=== PATIENT | male | born 1970 | race Caucasian/White ===

== ENCOUNTER 2017-08-19 08:58 | Inpatient (IN) | payer MEDICARE, OTHER ==
--- NOTE | 2017-08-19 09:10 | PDOC ---
Attending Attestation - Resident Resident Name: SaurabhKoko francis - HPI HPI: 08/19/17 09:34 Pt presents to the ED complaining of hematemesis and brbpr that started yesterday. Patient is also complaining of mild lightheadness and shortness of breath, but denies chest pain or passing out. No prior history of similar complaints. Denies hematemesis and complains only of mild cough. Febrile in the Ed, but denies fevers at home. Patient denies history of HIV, but prior notes reflect diagnosis of HIV with visits to the [facility]. - Physicial Exam PE: 08/19/17 09:37 Agree with resident exam. Patient is tachycardic. He is alert and oriented and is no acute distress. He is speaking in complete sentences without apparent shortness of breath. - Medical Decision Making 08/19/17 10:18 Pt presents to the ED complaining of GI bleed. Febrile and tachycardic in the ED with BRB KS. History of untreated HIV. Differential includes bleeding ulcer or variceal bleed. Patient is also febrile with elevated lactate--will treat with broad spectrum antibiotics. Will admit to telemetry for continued monitoring, antibiotics and serial hemoglobins.
[2017-08-19] MEDS ORDERED: SODIUM CHLORIDE 0.9% 1000 ML INFUS.BAG IV STA (09:23)
[2017-08-19] MEDS ORDERED: PANTOPRAZOLE SODIUM 40 MG VIAL IVPUSH ONE (09:25)
[2017-08-19] MEDS ORDERED: PANTOPRAZOLE SODIUM 40 MG VIAL ONE (09:25)
--- NOTE | 2017-08-19 09:37 | PDOC ---
History of Present Illness - General Chief Complaint: Hemoptysis Stated Complaint: SPITTING UP BLOOD Time Seen by Provider: 08/19/17 09:06 History Source: Patient Exam Limitations: No Limitations - History of Present Illness Initial Comments: 08/19/17 09:57 Patient is a 47M with history of HIV (denies having HIV, not being treated) here today complaining hematemesis and bright red blood per rectum today. He states that he had three episodes of bloody vomit and two bloody stools. Patient is complaining of associated abdominal pain, fevers, shortness of breath and mild dizziness. Of note, patient states that he did not have HIV, history gathered from prior documentation from [facility]. Past History - Past Medical History Allergies/Adverse Reactions: Allergies Allergy/AdvReac Type Severity Reaction Status Date / Time No Known Allergies Allergy Verified 08/19/17 08:59 Home Medications: Ambulatory Orders Emtricitab/Rilpivirine/Tenofov [Complera Tablet] 1 each PO QID 01/31/12 Anemia: No Asthma: No Cancer: No Cardiac Disorders: No CVA: No COPD: No CHF: No Dementia: No Diabetes: No GI Disorders: No Disorders: No HTN: No Hypercholesterolemia: No Liver Disease: No Seizures: No Thyroid Disease: No Other medical history: DENIES. - Surgical History Abdominal Surgery: No Appendectomy: No Cardiac Surgery: No Cholecystectomy: No Lung Surgery: No Neurologic Surgery: No Orthopedic Surgery: No - Suicide/Smoking/Psychosocial Hx Smoking History: Current some day smoker Have you smoked in the past 12 months: Yes Number of Cigarettes Smoked Daily: 4 Cigars Per Day: 0 Information on smoking cessation initiated: Yes 'Breaking Loose' booklet given: 08/19/17 Hx Alcohol Use: No Drug/Substance Use Hx: No Substance Use Type: None Hx Substance Use Treatment: No Review of Systems - Review of Systems Comments:: 08/19/17 10:20 GENERAL/CONSTITUTIONAL: Positive for fever or chills. No weakness. HEAD, EYES, EARS, NOSE AND THROAT: No change in vision. No sore throat. CARDIOVASCULAR: No chest pain. Positive for shortness of breath RESPIRATORY: No cough, wheezing, or hemoptysis. GASTROINTESTINAL: Positive for nausea, vomiting. Negative for constipation. GENITOURINARY: No dysuria, frequency, or change in urination. MUSCULOSKELETAL: No joint or muscle swelling or pain. No neck or back pain. SKIN: No rash NEUROLOGIC: No headache, loss of consciousness, or change in strength/sensation. ALLERGIC/IMMUNOLOGIC: No hives or skin allergy. *Physical Exam - Vital Signs Last Vital Signs Temp Pulse Resp BP Pulse Ox 100.5 F H 143 H 22 102/65 97 08/19/17 09:00 08/19/17 09:00 08/19/17 09:00 08/19/17 09:00 08/19/17 09:00 - Physical Exam Comments: 08/19/17 10:22 GENERAL: Awake, alert, and fully oriented, in no acute distress HEAD: No signs of trauma, normocephalic, atraumatic EYES: PERRLA, EOMI, sclera anicteric, conjunctiva clear ENT: Auricles normal inspection, hearing grossly normal, nares patent, oropharynx clear without exudates. Dry mucosa NECK: Normal ROM, supple, no lymphadenopathy, JVD, or masses LUNGS: No distress, speaks full sentences, clear to auscultation bilaterally HEART: Tachycardic, no murmurs, rubs or gallops, peripheral pulses normal and equal bilaterally. ABDOMEN: 7x3cm reducible ventral hernia, tender. Epigastric tenderness. EXTREMITIES: Normal inspection, Normal range of motion, no edema. No clubbing or cyanosis. NEUROLOGICAL: Cranial nerves II through XII grossly intact. Normal speech, no focal sensorimotor deficits SKIN: Warm, Dry, normal turgor, no rashes or lesions noted. RECTAL: Nontender, hemorrhoid, small amount of red blood. ED Treatment Course - LABORATORY CBC & Chemistry Diagram: 08/19/17 09:20 08/19/17 09:20 - RADIOLOGY Radiology Studies Ordered: Category Date Time Status CHEST X-RAY PORTABLE* [RAD] Stat Radiology 08/19/17 09:23 Ordered Medical Decision Making - Medical Decision Making 08/19/17 10:27 Patient is a 47M with a history of HIV here today with hematemsis. Oral temp 100.4, tachycardic to 140s. Concern elevated due to patent's HIV status not being treated. Differential diagnosis includes, but is not limited to: GI bleed , pneumonia, uti. Will give 2L, tylenol and antibiotics. Will evaluate with septic workup. 08/19/17 11:34 EKG shows sinus tachycardia. Rate 128. No st elevations/depressions. Normal IN/ QRS/QT intevals. Inverted t waves in III. Patient reassessed. Tachycardic to 120s. Complaining of pain in abdomen. Tylenol and second liter going in during examination. 08/19/17 11:36 Laboratory Tests 08/15/14 08/19/17 08/19/17 09:40 09:20 09:20 WBC 7.5 Hgb 13.2 9.2 L D Hct 27.1 L D Plt Count 215 D INR 1.28 H BUN Creatinine Lactic Acid Total Bilirubin Troponin I Urine Nitrite Ur Leukocyte Esterase Stool Occult Blood Salicylates Acetaminophen Alcohol, Quantitative 08/19/17 08/19/17 08/19/17 09:20 09:20 09:20 WBC Hgb Hct Plt Count INR BUN 38 H D Creatinine 0.9 Lactic Acid 3.6 H* Total Bilirubin 1.1 H D Troponin I < 0.02 Urine Nitrite Ur Leukocyte Esterase Stool Occult Blood Salicylates Acetaminophen Alcohol, Quantitative 08/19/17 08/19/17 08/19/17 09:33 09:34 11:00 WBC Hgb Hct Plt Count INR BUN Creatinine Lactic Acid Total Bilirubin Troponin I Urine Nitrite Negative Ur Leukocyte Esterase Negative Stool Occult Blood Positive Salicylates < 1.700 Acetaminophen < 2 Alcohol, Quantitative < 5.0 CBC shows anemia, down from baseline of 13 from 3 years ago. Lactate positive to 3.6. Troponin undetectable. Tox negative. Stool for occult blood positive. CT abdomen/pelvis pending. 08/19/17 12:27 CXR shows no acute pathology. *DC/Admit/Observation/Transfer Diagnosis at time of Disposition: Sepsis - Discharge Dispostion Condition at time of disposition: Stable Admit: Yes - Referrals - Patient Instructions - Post Discharge Activity
[2017-08-19 09:39] LABS: HEMATOCRIT 27.1 % (35.4-49); HEMOGLOBIN 9.2 GM/dL (11.7-16.9)
[2017-08-19 09:56] LABS: BASO % 1.1 % (0-2.0); EOS % 0.2 % (0-4.5); MCH 34.7 pg (25.7-33.7); MONO % 15.4 % (3.8-10.2); NEUT % 72.3 % (42.8-82.8); PLATELET COUNT 215 K/MM3 (134-434); RBC 2.66 M/mm3 (4.00-5.60); RDW 13.8 % (11.9-15.9); WHITE BLOOD COUNT 7.5 K/mm3 (4.0-10.0)
[2017-08-19 10:02] LABS: SALICYLATE < 1.700 mg/dL
[2017-08-19 10:03] LABS: ACETAMINOPHEN < 2 ug/mL
[2017-08-19 10:05] LABS: ALBUMIN 2.4 g/dl (3.4-5.0); ALK PHOS 86 U/L (45-117); ANION GAP 7 (8-16); BILIRUBIN,TOTAL 1.1 mg/dL (0.2-1.0); BLOOD UREA NITROGEN 38 mg/dL (7-18); CALCIUM 7.9 mg/dL (8.5-10.1); CHLORIDE 102 mmol/L (98-107); CO2 27 mmol/L (21-32); CREATININE 0.9 mg/dL (0.7-1.3); GLUCOSE,RANDOM 132 mg/dL (74-106); SGPT/ALT 74 U/L (12-78); SODIUM 136 mmol/L (136-145); TOT PROT 9.7 g/dl (6.4-8.2)
[2017-08-19] MEDS ORDERED: ACETAMINOPHEN 1000 MG/100 ML VIAL (NON FORMULARY) IVPB ONE (10:06)
[2017-08-19 10:07] LABS: INR 1.28 (0.82-1.09); PROTHROMBIN TIME (PATIENT) 14.5 SEC (9.98-11.88)
[2017-08-19 10:09] LABS: ACTIVATED PTT 30.4 SECONDS (26.9-34.4)
[2017-08-19 10:13] LABS: POTASSIUM 4.7 mmol/L (3.5-5.1); SGOT/AST 191 U/L (15-37)
[2017-08-19] MEDS ORDERED: ACETAMINOPHEN INJECTION 100 ML IVPB ONE (10:19)
[2017-08-19] MEDS ORDERED: VANCOMYCIN 1,000 MG in DEXTROSE 5%-WATER - 250 ML IVPB ONE (10:26)
[2017-08-19] MEDS ORDERED: PIPERACILLIN/TAZOB 4.5 GM/100 ML PRE-DOCKED IVPB ONE (10:26)
[2017-08-19 11:31] LABS: URINE APPEARANCE CLEAR; URINE BILIRUBIN NEGATIVE (NEGATIVE); URINE BLOOD 1+ (NEGATIVE); URINE COLOR YELLOW; URINE GLUCOSE (UA) NEGATIVE (NEGATIVE); URINE KETONE TRACE (NEGATIVE); URINE LEUK ESTERASE NEGATIVE (NEGATIVE); URINE NITRITE NEGATIVE (NEGATIVE); URINE PROTEIN NEGATIVE (NEGATIVE); URINE UROBILINOGEN NEGATIVE mg/dL (0.2-1.0)
[2017-08-19 11:42] LABS: GRANULAR CASTS 9 /lpf; URINE HYALINE CAST 12 /lpf
[2017-08-19] MEDS ORDERED: SODIUM CHLORIDE 1,000 ML IV STA (12:28)
[2017-08-19] MEDS ORDERED: VANCOMYCIN 1 GRAM (PRE-DOCKED) 1,000 MG/250 ML BAG IVPB ONE (12:37)
[2017-08-19] MEDS ORDERED: PIPERACILLIN/TAZOB 4.5 GM 4.5 GM/100 ML BAG IVPB ONE (12:37)
--- NOTE | 2017-08-19 14:40 | HP ---
CHIEF COMPLAINT: Bloody vomiting PCP: None HISTORY OF PRESENT ILLNESS: 47 year-old male with a PMH significant for alcohol abuse and HIV not on medication. Presents to the ED today with a report of hematemesis that began yesterday and continued to this morning. He has had "black" stools over the past few days, also BRBPR. Patient also complains of abdominal pain in the periumbilical area and subjective fever. Patient admits to drinking 7 beers daily, 10 beers on weekend days. Last drink 4 days ago. Patient admits he stopped going to the [facility] several years ago and has been off antiviral medication since. His last recorded attendance there was in 04/2015. ER course was notable for: (1) T100.5 BP 124/68 p143 RR22 (2) Lactic acid 3.6-->1.2 (3) Hgb 9.2 Recent Travel: No PAST MEDICAL HISTORY: HIV off medication PAST SURGICAL HISTORY: Hemorrhoidectomy Social History: unemployed, from [place] Smoking: current every day Alcohol: 7 beers daily on weekdays, 10 beers daily on weekends Drugs: denies Family History: mother and father unknown ages and causes; son healthy Allergies No Known Allergies Allergy (Verified 08/19/17 08:59) HOME MEDICATIONS: Home Medications Medication Instructions Recorded Emtricitab/Rilpivirine/Tenofov 1 each PO QID 01/31/12 [Complera Tablet] REVIEW OF SYSTEMS CONSTITUTIONAL: +fever, chills Absent: diaphoresis, generalized weakness, malaise, loss of appetite, weight change HEENT: Absent: rhinorrhea, nasal congestion, throat pain, throat swelling, difficulty swallowing, mouth swelling, ear pain, eye pain, visual changes CARDIOVASCULAR: Absent: chest pain, syncope, palpitations, irregular heart rate, lightheadedness , peripheral edema RESPIRATORY: Absent: cough, shortness of breath, dyspnea with exertion, orthopnea, wheezing, stridor, hemoptysis GASTROINTESTINAL: +abdominal pain, abdominal distension, hematemesis, melena, BRBPR Absent: diarrhea, constipation, hematochezia GENITOURINARY: Absent: dysuria, frequency, urgency, hesitancy, hematuria, flank pain, genital pain MUSCULOSKELETAL: Absent: myalgia, arthralgia, joint swelling, back pain, neck pain SKIN: Absent: rash, itching, pallor HEMATOLOGIC/IMMUNOLOGIC: Absent: easy bleeding, easy bruising, lymphadenopathy, frequent infections ENDOCRINE: Absent: unexplained weight gain, unexplained weight loss, heat intolerance, cold intolerance NEUROLOGIC: Absent: headache, focal weakness or paresthesias, dizziness, unsteady gait, seizure, mental status changes, bladder or bowel incontinence PSYCHIATRIC: Absent: anxiety, depression, suicidal or homicidal ideation, hallucinations. PHYSICAL EXAMINATION Vital Signs - 24 hr 08/19/17 08/19/17 08/19/17 09:00 11:42 12:02 Temperature 100.5 F H 99.4 F Pulse Rate 143 H 89 Pulse Rate [ 121 H Left Apical] Respiratory 22 18 18 Rate Blood Pressure 102/65 134/70 Blood Pressure 124/68 [Left Arm] O2 Sat by Pulse 97 98 98 Oximetry (%) GENERAL: Awake, alert, and fully oriented. Ill-appearing. HEAD: Normal with no signs of trauma. EYES: Pupils equal, round and reactive to light, extraocular movements intact, sclera anicteric, conjunctiva clear. No lid lag. EARS, NOSE, THROAT: Ears normal, nares patent, oropharynx clear without exudates. Moist mucous membranes. NECK: Normal range of motion, supple without lymphadenopathy, JVD, or masses. LUNGS: Breath sounds equal, clear to auscultation bilaterally. No wheezes, and no crackles. No accessory muscle use. +Clubbing all fingers HEART: Regular rate and rhythm, normal S1 and S2 without murmur, rub or gallop. ABDOMEN: Soft, mid-abdominal tenderness, distension, hypoactive bowel sounds MUSCULOSKELETAL: Normal range of motion at all joints. No bony deformities or tenderness. No CVA tenderness. UPPER EXTREMITIES: 2+ pulses, warm, well-perfused. No cyanosis. No clubbing. No peripheral edema. LOWER EXTREMITIES: 2+ pulses, warm, well-perfused. No calf tenderness. No peripheral edema. NEUROLOGICAL: Cranial nerves II-XII intact. Normal speech. Laboratory Results - last 24 hr 08/19/17 08/19/17 08/19/17 09:20 09:20 09:20 WBC 7.5 RBC 2.66 L D Hgb 9.2 L D Hct 27.1 L D MCV 102.0 H MCH 34.7 H MCHC 34.0 RDW 13.8 Plt Count 215 D MPV 10.0 D Neutrophils % 72.3 Lymphocytes % 11.0 D Monocytes % 15.4 H Eosinophils % 0.2 D Basophils % 1.1 PT with INR 14.50 H INR 1.28 H PTT (Actin FS) 30.4 Sodium 136 Potassium 4.7 Chloride 102 Carbon Dioxide 27 Anion Gap 7 L BUN 38 H D Creatinine 0.9 Creat Clearance w eGFR > 60 Random Glucose 132 H D Lactic Acid Calcium 7.9 L Total Bilirubin 1.1 H D AST 191 H D ALT 74 D Alkaline Phosphatase 86 Troponin I Total Protein 9.7 H Albumin 2.4 L D Urine Color Urine Appearance Urine pH Ur Specific [place] Urine Protein Urine Glucose (UA) Urine Ketones Urine Blood Urine Nitrite Urine Bilirubin Urine Urobilinogen Ur Leukocyte Esterase Urine WBC (Auto) Urine RBC (Auto) Hyaline Casts Granular Casts Stool Occult Blood Salicylates Acetaminophen Alcohol, Quantitative Blood Type Antibody Screen 08/19/17 08/19/17 08/19/17 09:20 09:20 09:20 WBC RBC Hgb Hct MCV MCH MCHC RDW Plt Count MPV Neutrophils % Lymphocytes % Monocytes % Eosinophils % Basophils % PT with INR INR PTT (Actin FS) Sodium Potassium Chloride Carbon Dioxide Anion Gap BUN Creatinine Creat Clearance w eGFR Random Glucose Lactic Acid 3.6 H* Calcium Total Bilirubin AST ALT Alkaline Phosphatase Troponin I < 0.02 Total Protein Albumin Urine Color Urine Appearance Urine pH Ur Specific [place] Urine Protein Urine Glucose (UA) Urine Ketones Urine Blood Urine Nitrite Urine Bilirubin Urine Urobilinogen Ur Leukocyte Esterase Urine WBC (Auto) Urine RBC (Auto) Hyaline Casts Granular Casts Stool Occult Blood Salicylates Acetaminophen Alcohol, Quantitative Blood Type O POSITIVE Antibody Screen Negative 08/19/17 08/19/17 08/19/17 09:33 09:34 11:00 WBC RBC Hgb Hct MCV MCH MCHC RDW Plt Count MPV Neutrophils % Lymphocytes % Monocytes % Eosinophils % Basophils % PT with INR INR PTT (Actin FS) Sodium Potassium Chloride Carbon Dioxide Anion Gap BUN Creatinine Creat Clearance w eGFR Random Glucose Lactic Acid Calcium Total Bilirubin AST ALT Alkaline Phosphatase Troponin I Total Protein Albumin Urine Color Yellow Urine Appearance Clear Urine pH 6.0 Ur Specific [place] 1.015 Urine Protein Negative Urine Glucose (UA) Negative Urine Ketones Trace H Urine Blood 1+ H Urine Nitrite Negative Urine Bilirubin Negative Urine Urobilinogen Negative Ur Leukocyte Esterase Negative Urine WBC (Auto) 1 Urine RBC (Auto) 1 Hyaline Casts 12 Granular Casts 9 Stool Occult Blood Positive Salicylates < 1.700 Acetaminophen < 2 Alcohol, Quantitative < 5.0 Blood Type Antibody Screen 08/19/17 12:15 WBC RBC Hgb Hct MCV MCH MCHC RDW Plt Count MPV Neutrophils % Lymphocytes % Monocytes % Eosinophils % Basophils % PT with INR INR PTT (Actin FS) Sodium Potassium Chloride Carbon Dioxide Anion Gap BUN Creatinine Creat Clearance w eGFR Random Glucose Lactic Acid 1.2 Calcium Total Bilirubin AST ALT Alkaline Phosphatase Troponin I Total Protein Albumin Urine Color Urine Appearance Urine pH Ur Specific [place] Urine Protein Urine Glucose (UA) Urine Ketones Urine Blood Urine Nitrite Urine Bilirubin Urine Urobilinogen Ur Leukocyte Esterase Urine WBC (Auto) Urine RBC (Auto) Hyaline Casts Granular Casts Stool Occult Blood Salicylates Acetaminophen Alcohol, Quantitative Blood Type Antibody Screen ASSESSMENT/PLAN 47 year-old male with a PMH significant for alcohol abuse and HIV not on medication. Admitted for upper GI bleed. SIRS r/o upper GI bleed --Tm 100.6, BP stable, tachycardic --type and screen done, 2U PRBC on hold --Protonix drip --Octreotide drip --IV fluids --GI following Fever Abdominal pain Ascites --08/19 CTAP: small amount of ascites throughout abdomen and pelvis --Total bili 1.1, AST 191, INR 1.28 --concern for SBP --start IV Levofloxacin (cefotaxime on backorder) --ID consult Macrocytic anemia --Hgb 9.2, MCV 102 --folate, B12, retic count, haptoglobin, LDH, thyroid; will defer further HIV testing to ID Alcohol abuse --last drink 4 days ago --monitor closely for s/s of withdrawal BRBPR Hemorrhoid(s) --small amount of blood in rectal vault --occult stool positive Transaminitis Ascites --US liver pending HIV --patient denies HIV positive status even though he was followed at [facility] through 2014 --ID consult pending FEN Fluids: D5NS @ 100mL/hr Electrolytes: replete as indicated Nutrition: NPO DVT prophylaxis: mechanical only due to bleeding issue; SCDs, oob, ambulation Physical therapy Dispo: continues to require inpatient care. Full code. Visit type - Emergency Visit Emergency Visit: Yes ED Registration Date: 08/19/17 Care time: The patient presented to the Emergency Department on the above date and was hospitalized for further evaluation of their emergent condition. - New Patient This patient is new to me today: Yes Date on this admission: 08/19/17 - Critical Care Critical Care patient: Yes Total Critical Care Time (in minutes): 45 Critical Care Statement: The care of this patient involved high complexity decision making to prevent further life threatening deterioration of the patient 's condition and/or to evaluate & treat vital organ system(s) failure or risk of failure. Hospitalist Screening - Colonoscopy Questionnaire Colonoscopy Questionnaire: Colonoscopy Questionnaire - Patient: 50 - 75 years old and never had a screening colonoscopy: No History of colon or rectal polyps, or CA: No History of IBD, Crohn's disease or UC: No History of abdominal radiation therapy as a child: No - Relative: 1 with colon or rectal CA, or polyps at age 60 or younger: Unknown Colon or rectal CA diagnosed at age 45 or younger: Unknown Multiple relatives with colon or rectal CA: Unknown - Outcome: Screening Result: Negative Screen
[2017-08-19] MEDS ORDERED: DEXTROSE 5%-LACTATED RINGERS 1,000 ML IV SCH (15:00)
[2017-08-19] MEDS: PANTOPRAZOLE SODIUM 80 MG in SODIUM CHLORIDE 100 ML IVPB SCH (15:51)
[2017-08-19 17:25] VITALS: BMI 24.2
--- NOTE | 2017-08-19 17:33 | EKG ---
Test Reason : Blood Pressure : / mmHG Vent. Rate : 128 BPM Atrial Rate : 128 BPM P-R Int : 142 ms QRS Dur : 094 ms QT Int : 306 ms P-R-T Axes : 056 039 -02 degrees QTc Int : 446 ms SINUS TACHYCARDIA OTHERWISE NORMAL ECG WHEN COMPARED WITH ECG OF 16-SEP-2003 09:36, VENT. RATE HAS INCREASED BY 64 BPM T WAVE AMPLITUDE HAS DECREASED IN ANTERIOR LEADS Confirmed by RENE DAUGHERTY, CARLOS ([id number]) on 08/19/2017 5:33:05 PM Referred By: Confirmed By:CARLOS LÓPEZ MD
[2017-08-19] MEDS ORDERED: CEFOTAXIME SODIUM 500 MG in DEXTROSE 5%-WATER - 50 ML IVPB SCH (18:00)
[2017-08-19] MEDS ORDERED: OCTREOTIDE ACETATE 1,200 MCG in DEXTROSE 5%-WATER - 488 ML IVPB SCH (18:00)
--- NOTE | 2017-08-19 18:04 | CON.GI ---
Consult Consult Specialty:: GI: Dr. Arroyo covering for Dr. Nicholson Referred by:: Hospitalist Reason for Consultation:: Hematemesis / BRBPR / hematochezia - History of Present Illness Chief Complaint: I vomited blood History of Present Illness: 47M admitted through [facility] for evaluation of hematemesis, melena/BRBPR. He states that the vomiting began yesterday, initially black then bright red in color. he described multiple epsodes from yesterday day and the evening and the last times were 5am and 830am today. He denies similar episodes in the past and has never had an upper endoscopy or colonoscopy. He is an alcoholic, consuming 6-7 beers per day, more on the weekends for several years. his last drink was 4 days ago and he denies ever having had a withdrawal. He has a h/o HIV as well but denies this diagnosis. He has had fevers on admission and describes chills and currently complains of mid abdominal pain. CT scan performed in the ER with IV contrast revealed a small amount of ascites and was otherwise unremarkable. - History Source History Provided By: Patient, Medical Record Limitations to Obtaining History: No Limitations (He does deny having HIV) - Past Medical History Infectious Disease: Yes: HIV (On ART) - Past Surgical History Additional Surgical History: Hemorrhoidectomy - Alcohol/Substance Use Hx Alcohol Use: Yes (6-7 BEERs daily, more on weekends) History of Substance Use: reports: None - Smoking History Smoking history: Current some day smoker Have you smoked in the past 12 months: Yes Aproximately how many cigarettes per day: 4 - Social History Usual Living Arrangement: Alone ADL: Independent Occupation: Unemployed Place of : Other ([place]) History of Recent Travel: No Home Medications - Allergies Allergies/Adverse Reactions: Allergies Allergy/AdvReac Type Severity Reaction Status Date / Time No Known Allergies Allergy Verified 08/19/17 08:59 - Home Medications Home Medications: Ambulatory Orders Emtricitab/Rilpivirine/Tenofov [Complera Tablet] 1 each PO QID 01/31/12 Family Disease History - Family Disease History Family Disease History: Other: Father (: unknown causes), Mother (: unknown causes), Son (alive: healthy) Other Family History: No family history of colorectal cancer or other Gi malignancy Review of Systems - Review of Systems Constitutional: reports: Fever, Weakness Cardiovascular: denies: Chest Pain Respiratory: reports: Cough. denies: SOB Gastrointestinal: reports: Abdominal Pain, Melena, Rectal Bleeding, Vomiting Blood. denies: Constipation, Diarrhea, Dysphagia Physical Exam-GI Vital Signs: Vital Signs Temperature 100.0 F H 08/19/17 17:25 Pulse Rate 112 H 08/19/17 17:25 Respiratory Rate 22 08/19/17 17:25 Blood Pressure 124/78 08/19/17 17:25 O2 Sat by Pulse Oximetry (%) 98 08/19/17 16:45 Constitutional: Yes: Calm Eyes: No: Sclera Icterus Cardiovascular: Yes: Tachycardia. No: Murmur Respiratory: Yes: CTA Bilaterally Gastrointestinal Inspection: No: Distention ...Auscultate: Yes: Normoactive Bowel Sounds ...Palpate: Yes: Hepatomegaly, Soft, Tenderness (Mid abdomen) ...Percussion: No: Tympanitic ...Rectal Exam: Yes: Other (No external lesions, no masses, guaiac positive brown stool, no blood/melena) Edema: No (No LE edema) Neurological: Yes: Alert. No: [facility] Labs: CBC, BMP 08/19/17 09:20 08/19/17 09:20 INR, PTT INR 1.28 (0.82-1.09) H 08/19/17 09:20 Imaging - Results Cat Scan: Report Reviewed, Image Reviewed Ultrasound: Report Reviewed (hepatomegaly and diffuse steatosis of liver) Assessment/Plan Hematemesis / hematochezia: Given Mr. Esparza' long standing alcohol abuse coupled with hypoalbuminemia and mild coagulopathy, variceal hemorrhage will need to be excluded along with alternate patholgies such as PUD / hemorrhagic gastritis. i explained this to Mr. Esparza and discussed EGD followed by possible colonoscopy. We discussed potential risks of the procedures like but not limited to bleeding, perforation requiring surgery to repair, infection, sedation medication effects all of which could be potentially life threatening. He has agreed to the procedures For now: NPO Repeat CBC now Protonix drip started by david I advised an octreotide drip as well and transfer to the ICU IV abx in setting of possible variceal bleed: quinolone / cefotaxime ID eval Fever w/u Transfer to ICU
[2017-08-19] MEDS ORDERED: CEFOTAXIME SODIUM IVPB SCH (18:30)
[2017-08-19] MEDS ORDERED: SODIUM CHLORIDE IVPB SCH (18:30)
[2017-08-19] MEDS ORDERED: OCTREOTIDE ACETATE 50 MCG/1 ML - 1 ML VIAL IVPB ONE (19:00)
[2017-08-19 20:25] LABS: HEMATOCRIT 21.7 % (35.4-49); HEMOGLOBIN 7.5 GM/dL (11.7-16.9); MCH 35.1 pg (25.7-33.7); MCHC 34.5 g/dl (32.0-35.9); MEAN CELL VOLUME 101.7 fl (80-96); MEAN PLT VOLUME 9.5 fl (7.5-11.1); PLATELET COUNT 157 K/MM3 (134-434); RBC 2.14 M/mm3 (4.00-5.60); RDW 13.5 % (11.9-15.9); WHITE BLOOD COUNT 6.1 K/mm3 (4.0-10.0)
[2017-08-19] MEDS ORDERED: CHLORHEXIDINE GLUCONATE 4% CLEANSER FOR DECOLONIZATION TP SCH (22:00)
--- NOTE | 2017-08-19 22:33 | CONSULT ---
Consult Consult Specialty:: Pulm/CCM Reason for Consultation:: GI bleed- Hematemesis and melena - History of Present Illness Chief Complaint: Abd pain History of Present Illness: 47yom with PMHx of HIV (pt denies diagnosis, non-compliant to meds, no hx of OIs ), active drinker 5-6beers /d( no hx of withdrawal), smoker who presented to the ED with c/o hematemesis, melena/BRBPR x 2days. He states that the vomiting has been bright red blood and the stool has been black. He also c/o epigastric pain. Pt has denied previous episodes of bleeding. He reports the last was 5am and 830am today. His last drink was 4 days ago. He denied syncope, chest pain. In the ED T 100.5F, HR 143, BP 102/65, O2 sat 97% on room air. Labs notable Hgb 7.5(13 in 2014), retic count 1.94%, albumin 2.4, INR 1.28. Abd US s/f hepatomegaly and ascites. GI consulted. Made NPO. Started on Protonix and octreotide drips with plan for EGD in am. He was transferred to ICU for further management. In the ICU rec'd A+Ox3, anxious, HD stable on Protonix and octreotide drips. No episodes of hematemesis or melena. 2U PRBC being given. - Past Medical History Infectious Disease: Yes: HIV (On ART) - Past Surgical History Additional Surgical History: Hemorrhoidectomy - Alcohol/Substance Use Hx Alcohol Use: Yes (6-7 BEERs daily, more on weekends) History of Substance Use: reports: None - Smoking History Smoking history: Current some day smoker Have you smoked in the past 12 months: Yes Aproximately how many cigarettes per day: 4 - Social History Usual Living Arrangement: Alone ADL: Independent Occupation: Unemployed History of Recent Travel: No Home Medications - Allergies Allergies/Adverse Reactions: Allergies Allergy/AdvReac Type Severity Reaction Status Date / Time No Known Allergies Allergy Verified 08/19/17 08:59 - Home Medications Home Medications: Ambulatory Orders Emtricitab/Rilpivirine/Tenofov [Complera Tablet] 1 each PO QID 01/31/12 Family Disease History - Family Disease History Family History: Unremarkable Family Disease History: Other: Father (: unknown causes), Mother (: unknown causes), Son (alive: healthy) Other Family History: No family history of colorectal cancer or other Gi malignancy Review of Systems - Review of Systems Constitutional: reports: Fever Eyes: reports: No Symptoms HENT: reports: No Symptoms Neck: reports: No Symptoms Cardiovascular: reports: No Symptoms Respiratory: reports: No Symptoms Gastrointestinal: reports: Abdominal Pain Genitourinary: reports: No Symptoms Musculoskeletal: reports: No Symptoms Integumentary: reports: No Symptoms Neurological: reports: Dizziness Psychiatric: reports: Anxiety Physical Exam Vital Signs: Vital Signs Temperature 100.0 F H 08/19/17 17:25 Pulse Rate 112 H 08/19/17 17:25 Respiratory Rate 22 08/19/17 17:25 Blood Pressure 124/78 08/19/17 17:25 O2 Sat by Pulse Oximetry (%) 98 08/19/17 16:45 Intake & Output 08/16/17 08/17/17 08/18/17 08/19/17 23:59 23:59 23:59 23:59 Intake Total 1350 Output Total 850 Balance 500 Weight 68.039 kg Constitutional: Yes: Well Nourished, No Distress Eyes: Yes: Conjunctiva Clear, PERRL HENT: Yes: Atraumatic, Normocephalic Neck: Yes: Trachea Midline Cardiovascular: Yes: Regular Rate and Rhythm, Tachycardia, S1, S2 Respiratory: Yes: Regular, CTA Bilaterally Gastrointestinal: Yes: Normal Bowel Sounds, Hepatomegaly (Non tender to palpaption; RUQ dull and firm) ...Rectal Exam: Yes: WNL Renal/: Yes: WNL Extremities: Yes: WNL Edema: No Neurological: Yes: Alert, Oriented, Cran Nerves II-XII Intact Psychiatric: Yes: Alert, Oriented Labs: CBC, BMP 08/19/17 19:00 08/19/17 09:20 CBC,CMP WBC 6.1 K/mm3 (4.0-10.0) 08/19/17 19:00 RBC 2.14 M/mm3 (4.00-5.60) L 08/19/17 19:00 Hgb 7.5 GM/dL (11.7-16.9) L D 08/19/17 19:00 Hct 21.7 % (35.4-49) L D 08/19/17 19:00 MCV 101.7 fl (80-96) H 08/19/17 19:00 MCH 35.1 pg (25.7-33.7) H 08/19/17 19:00 MCHC 34.5 g/dl (32.0-35.9) 08/19/17 19:00 RDW 13.5 % (11.9-15.9) 08/19/17 19:00 Plt Count 157 K/MM3 (134-434) D 08/19/17 19:00 MPV 9.5 fl (7.5-11.1) 08/19/17 19:00 Neutrophils % 72.3 % (42.8-82.8) 08/19/17 09:20 Lymphocytes % 11.0 % (8-40) D 08/19/17 09:20 Monocytes % 15.4 % (3.8-10.2) H 08/19/17 09:20 Eosinophils % 0.2 % (0-4.5) D 08/19/17 09:20 Basophils % 1.1 % (0-2.0) 08/19/17 09:20 Retic Count 1.94 % (0.5-1.5) H 08/19/17 15:47 Sodium 136 mmol/L (136-145) 08/19/17 09:20 Potassium 4.7 mmol/L (3.5-5.1) 08/19/17 09:20 Chloride 102 mmol/L (98-107) 08/19/17 09:20 Carbon Dioxide 27 mmol/L (21-32) 08/19/17 09:20 Anion Gap 7 (8-16) L 08/19/17 09:20 BUN 38 mg/dL (7-18) H D 08/19/17 09:20 Creatinine 0.9 mg/dL (0.7-1.3) 08/19/17 09:20 Creat Clearance w eGFR > 60 (>60) 08/19/17 09:20 Random Glucose 132 mg/dL (74-106) H D 08/19/17 09:20 Lactic Acid 1.2 mmol/L (0.0-2.0) 08/19/17 12:15 Calcium 7.9 mg/dL (8.5-10.1) L 08/19/17 09:20 Total Bilirubin 1.1 mg/dL (0.2-1.0) H D 08/19/17 09:20 AST 191 U/L (15-37) H D 08/19/17 09:20 ALT 74 U/L (12-78) D 08/19/17 09:20 Alkaline Phosphatase 86 U/L (45-117) 08/19/17 09:20 LD Total 165 U/L (87-241) 08/19/17 16:00 Troponin I < 0.02 ng/ml (0.00-0.05) 08/19/17 09:20 Total Protein 9.7 g/dl (6.4-8.2) H 08/19/17 09:20 Albumin 2.4 g/dl (3.4-5.0) L D 08/19/17 09:20 Vitamin B12 427 pg/ml (180-914) 08/19/17 16:00 Serum Folate 11 ng/ml (3.1-17.5) 08/19/17 15:47 TSH 3.17 uIU/ml (0.358-3.74) 08/19/17 16:00 Free T4 0.93 ng/dl (0.76-1.16) 08/19/17 16:00 Current Medications Chlorhexidine Gluconate (Hibiclens For Decolonization -) 1 applic TP HS [facility] Pantoprazole Sodium 80 mg/ (Sodium Chloride) 100 mls @ 10 mls/hr IVPB Q10H [facility] PRN Reason: 8 MG/HR Last Admin: 08/19/17 15:51 Dose: 10 mls/hr Dextrose/Lactated Ringer's (D5-Lr -) 1,000 mls @ 100 mls/hr IV ASDIR [facility] Last Admin: 08/19/17 15:07 Dose: 100 mls/hr Octreotide Acetate 1,200 mcg/ (Dextrose) 500 mls @ 20.83 mls/hr IVPB [facility]IR [facility] PRN Reason: 50 MCG/HR Levofloxacin (Levaquin 500 Mg Premixed Ivpb -) 500 mg in 100 mls @ 100 mls/hr IVPB DAILY [facility] PRN Reason: Protocol Last Admin: 08/19/17 18:57 Dose: 100 mls/hr Mupirocin (Bactroban Ointment (For Decolonization) -) 1 applic NS BID [facility] Stop: 08/24/17 21:59 Imaging - Results Chest X-ray: Report Reviewed Cat Scan: Report Reviewed Ultrasound: Report Reviewed Problem List - Problems (1) GIB (gastrointestinal bleeding) Code(s): K92.2 - GASTROINTESTINAL HEMORRHAGE, UNSPECIFIED (2) Anemia Code(s): D64.9 - ANEMIA, UNSPECIFIED (3) HIV (human immunodeficiency virus infection) Code(s): Z21 - ASYMPTOMATIC HUMAN IMMUNODEFICIENCY VIRUS INFECTION STATUS Assessment/Plan 47yom with PMHx of HIV (pt denies diagnosis, non compliant to meds), active drinker 5-6beers/d(no hx of withdrawal) admitted with hematemesis and melena. Imaging s/f hepatomegaly and ascites. In ICU with GIB and significant anemia c/ f variceal bleeding +/- PUD +/- bleeding gastritis with plan for EGD in am. Plan: -GI consult, apprec recs -NPO -Maintain large bore IV access -CBC q4-6 -PRBC transfusion for hgb<7 -Cont PPI drip -Cont octreotide drip -Cont Levaquin for SBP prophylaxis -IVF -Monitor BMP and UOP -Trend LFTs and coags -ID consult for HIV management -JYOTSNA Ackerman CC time 35mins
[2017-08-19] MEDS: MUPIROCIN 2% TOPICAL OINTMENT FOR DECOLONIZATION NS SCH (22:50)
[2017-08-20] MEDS: PANTOPRAZOLE SODIUM 80 MG in SODIUM CHLORIDE 100 ML IVPB SCH ×3 (01:00→11:42)
[2017-08-20] MEDS ORDERED: OCTREOTIDE ACETATE 1,200 MCG in DEXTROSE 5%-WATER - 488 ML IVPB SCH (05:51)
[2017-08-20 06:16] LABS: BASO % 0.9 % (0-2.0); EOS % 3.3 % (0-4.5); HEMATOCRIT 26.6 % (35.4-49); HEMOGLOBIN 9.4 GM/dL (11.7-16.9); LYMPH % 24.1 % (8-40); MCHC 35.5 g/dl (32.0-35.9); MEAN CELL VOLUME 98.7 fl (80-96); MEAN PLT VOLUME 9.6 fl (7.5-11.1); MONO % 10.5 % (3.8-10.2); NEUT % 61.2 % (42.8-82.8); PLATELET COUNT 176 K/MM3 (134-434); RDW 15.1 % (11.9-15.9); WHITE BLOOD COUNT 6.2 K/mm3 (4.0-10.0)
[2017-08-20 06:39] LABS: ANION GAP 11 (8-16); BLOOD UREA NITROGEN 13 mg/dL (7-18); CALCIUM 7.8 mg/dL (8.5-10.1); CHLORIDE 105 mmol/L (98-107); CO2 24 mmol/L (21-32); CREATININE 0.7 mg/dL (0.7-1.3); GLUCOSE,RANDOM 93 mg/dL (74-106); MAGNESIUM 1.9 mg/dL (1.8-2.4); PHOSPHOROUS 3.5 mg/dL (2.5-4.9); POTASSIUM 3.5 mmol/L (3.5-5.1); SODIUM 140 mmol/L (136-145)
[2017-08-20 06:43] LABS: INR 1.26 (0.82-1.09); PROTHROMBIN TIME (PATIENT) 14.2 SEC (9.98-11.88)
[2017-08-20 06:54] LABS: ALBUMIN 2.3 g/dl (3.4-5.0); BILIRUBIN,DIRECT 0.6 mg/dL (0.0-0.2); BILIRUBIN,TOTAL 1.5 mg/dL (0.2-1.0); TOT PROT 8.8 g/dl (6.4-8.2)
[2017-08-20] MEDS: DEXTROSE 5%-NORMAL SALINE 1,000 ML IV SCH ×2 (07:00→16:36)
[2017-08-20] MEDS ORDERED: MAGNESIUM SULF 50% (8.12 MEQ/2 ML-1 GM VIAL) IVPB ONE (07:46)
[2017-08-20] MEDS ORDERED: CALCIUM ACETATE 667 MG CAPSULE (FP) PO SCH (08:00)
[2017-08-20] MEDS ORDERED: MAGNESIUM 1GM/D5W - 1 GM/100 ML IVPB IVPB ONE (09:00)
--- NOTE | 2017-08-20 09:01 | PN ---
Progress Note, Physician Chief Complaint: ID Former [facility] patient on Complera but off his meds for years. Admitted with UGI bleeding Noted to have low grade temp and concern of SBP treated with Levofloxacin Last T cells over 800 and HIV PCR RNA less then 20 Mild abd pain Seen by Aline quintanilla - Current Medication List Current Medications: Active Medications Chlorhexidine Gluconate (Hibiclens For Decolonization -) 1 applic TP HS [facility] Last Admin: 08/20/17 00:30 Dose: 1 applic Dextrose/Sodium Chloride (D5-Ns -) 1,000 mls @ 100 mls/hr IV ASDIR [facility] Last Admin: 08/20/17 07:00 Dose: Not Given Pantoprazole Sodium 80 mg/ (Sodium Chloride) 100 mls @ 10 mls/hr IVPB Q10H [facility] PRN Reason: 8 MG/HR Octreotide Acetate 1,200 mcg/ (Dextrose) 500 mls @ 20.83 mls/hr IVPB Q24H [facility] PRN Reason: 50 MCG/HR Last Admin: 08/20/17 06:24 Dose: Not Given CEFTRIAXONE 1 G/50 ML PREMIX (Ceftriaxone 1 Gm-D5w Bag) 50 mls @ 100 mls/hr IVPB DAILY [facility] Magnesium Sulfate/Dextrose (Magnesium 1gm/D5w -) 1 gm in 100 mls @ 100 mls/hr IVPB ONCE ONE Stop: 08/20/17 09:59 Potassium Chloride 10 meq/ (Sodium Chloride) 105 mls @ 105 mls/hr IVPB Q60M [facility] Stop: 08/20/17 10:29 Mupirocin (Bactroban Ointment (For Decolonization) -) 1 applic NS BID [facility] Stop: 08/24/17 21:59 Last Admin: 08/19/17 22:50 Dose: 1 applic - Objective Vital Signs: Vital Signs Temperature 98.3 F 08/20/17 08:00 Pulse Rate 79 08/20/17 08:00 Respiratory Rate 18 08/20/17 08:00 Blood Pressure 142/84 08/20/17 08:00 O2 Sat by Pulse Oximetry (%) 100 08/20/17 08:14 Constitutional: Yes: No Distress HENT: No: Pharyngeal Erythema, Thrush Cardiovascular: Yes: S1, S2 Respiratory: Yes: WNL, Regular, CTA Bilaterally Gastrointestinal: Yes: Soft. No: Ascites, Tenderness Edema: No Labs: CBC, BMP 08/20/17 05:00 08/20/17 05:00 INR, PTT INR 1.26 (0.82-1.09) H 08/20/17 05:00 Problem List - Problems (1) GIB (gastrointestinal bleeding) Code(s): K92.2 - GASTROINTESTINAL HEMORRHAGE, UNSPECIFIED (2) HIV (human immunodeficiency virus infection) Code(s): Z21 - ASYMPTOMATIC HUMAN IMMUNODEFICIENCY VIRUS INFECTION STATUS Assessment/Plan Microbiology 08/19/17 13:13 Nasopharyngeal Swab Influenza Types A,B Antigen ([facility]CRETIA) - Final 08/19/17 13:13 Nasopharyngeal Swab - Final Laboratory Tests 12/29/11 01/12/12 08/15/14 13:40 12:10 09:40 WBC Hgb Plt Count BUN Creatinine Direct Bilirubin Alkaline Phosphatase C-Reactive Protein Albumin Urine Nitrite Urine WBC (Auto) Urine RBC (Auto) Absolute CD4 [place] 862 Hep Bs Antigen Negative Hep B Core Ab Interpret Negative Hepatitis C Ab (EIA) 0.2 HIV-1 RNA (PCR) 08/15/14 08/19/17 08/20/17 09:40 11:00 05:00 WBC Hgb Plt Count BUN Creatinine Direct Bilirubin 0.6 H D Alkaline Phosphatase 69 C-Reactive Protein Albumin 2.3 L Urine Nitrite Negative Urine WBC (Auto) 1 Urine RBC (Auto) 1 Absolute CD4 [place] Hep Bs Antigen Hep B Core Ab Interpret Hepatitis C Ab (EIA) HIV-1 RNA (PCR) <20 08/20/17 08/20/17 08/20/17 05:00 05:00 05:00 WBC 6.2 Hgb 9.4 L D Plt Count 176 BUN 13 D Creatinine 0.7 D Direct Bilirubin Alkaline Phosphatase C-Reactive Protein Pending Albumin Urine Nitrite Urine WBC (Auto) Urine RBC (Auto) Absolute CD4 [place] Hep Bs Antigen Hep B Core Ab Interpret Hepatitis C Ab (EIA) HIV-1 RNA (PCR) Assessment Low grade fever doubt SBP HIV untreated UGI bleeding Alcohol abuse Plan Would stop antibiotics Repeat the T cells and Viral load with hope that he will come back to clinic NO HIV meds for now Observe off antibiotics and ART for now GI evaluation EGD colonoscopy Bar[facility] DAUGHERTY
[2017-08-20] MEDS: MUPIROCIN 2% TOPICAL OINTMENT FOR DECOLONIZATION NS SCH (09:22)
--- NOTE | 2017-08-20 09:22 | PN ---
Physical Exam: SUBJECTIVE: Patient seen and examined. He denies further hematemesis, melena. Denies chest pain, fever, sob. States his last drink was 4 days ago. OBJECTIVE: Vital Signs Period Temp Pulse Resp BP Sys/Cole Pulse Ox Last 24 Hr 98.3 F-100.0 F 79-121 17-25 117-142/65-96 97-100 PE Neuro: alert, awake, cn 2-12intact Pulm: CTAB CV: s1 s2 rrr no mrg Abd: periumbical tenderness to palpation, LUQ mild tenderness abd soft, mild distention Ext: no le edema, warm CBCD WBC 6.2 K/mm3 (4.0-10.0) 08/20/17 05:00 RBC 2.70 M/mm3 (4.00-5.60) L D 08/20/17 05:00 Hgb 9.4 GM/dL (11.7-16.9) L D 08/20/17 05:00 Hct 26.6 % (35.4-49) L D 08/20/17 05:00 MCV 98.7 fl (80-96) H 08/20/17 05:00 MCHC 35.5 g/dl (32.0-35.9) 08/20/17 05:00 RDW 15.1 % (11.9-15.9) D 08/20/17 05:00 Plt Count 176 K/MM3 (134-434) 08/20/17 05:00 MPV 9.6 fl (7.5-11.1) 08/20/17 05:00 CMP Sodium 140 mmol/L (136-145) 08/20/17 05:00 Potassium 3.5 mmol/L (3.5-5.1) D 08/20/17 05:00 Chloride 105 mmol/L (98-107) 08/20/17 05:00 Carbon Dioxide 24 mmol/L (21-32) 08/20/17 05:00 Anion Gap 11 (8-16) 08/20/17 05:00 BUN 13 mg/dL (7-18) D 08/20/17 05:00 Creatinine 0.7 mg/dL (0.7-1.3) D 08/20/17 05:00 Creat Clearance w eGFR > 60 (>60) 08/19/17 09:20 Calcium 7.8 mg/dL (8.5-10.1) L 08/20/17 05:00 Total Bilirubin 1.5 mg/dL (0.2-1.0) H D 08/20/17 05:00 AST 142 U/L (15-37) H D 08/20/17 05:00 ALT 53 U/L (12-78) D 08/20/17 05:00 Alkaline Phosphatase 69 U/L (45-117) 08/20/17 05:00 Total Protein 8.8 g/dl (6.4-8.2) H 08/20/17 05:00 Albumin 2.3 g/dl (3.4-5.0) L 08/20/17 05:00 08/19/17 08/19/17 08/19/17 12:15 15:47 15:47 ESR Retic Count 1.94 H Haptoglobin Lactic Acid 1.2 Total Bilirubin LD Total C-Reactive Protein Vitamin B12 Serum Folate 11 TSH Free T4 Free T3 08/19/17 08/19/17 08/19/17 16:00 16:00 16:00 ESR Retic Count Haptoglobin Pending Lactic Acid Total Bilirubin LD Total 165 C-Reactive Protein Vitamin B12 427 Serum Folate TSH 3.17 Free T4 0.93 Free T3 08/19/17 08/20/17 08/20/17 16:00 05:00 05:00 ESR Retic Count Haptoglobin Lactic Acid Total Bilirubin 1.5 H D LD Total C-Reactive Protein Pending Vitamin B12 Serum Folate TSH Free T4 Free T3 Pending 08/20/17 05:00 PT with INR 14.20 H INR 1.26 H Active Medications Generic Name Dose Route Start Last Admin Trade Name Freq PRN Reason Stop Dose Admin Chlorhexidine Gluconate 1 applic 08/19/17 22:00 08/20/17 00:30 Hibiclens For Decolonization - TP 1 applic HS [facility] Administration Dextrose/Sodium Chloride 1,000 mls @ 100 mls/hr 08/20/17 05:45 08/20/17 07:00 D5-Ns - IV Not Given ASDIR [facility] Pantoprazole Sodium 80 mg/ 100 mls @ 10 mls/hr 08/20/17 11:00 Sodium Chloride IVPB Q10H [facility] 8 MG/HR Octreotide Acetate 1,200 mcg/ 500 mls @ 20.83 mls/hr 08/20/17 05:51 08/20/17 06:24 Dextrose IVPB Not Given Q24H [facility] 50 MCG/HR CEFTRIAXONE 1 G/50 ML PREMIX 50 mls @ 100 mls/hr 08/20/17 10:00 Ceftriaxone 1 Gm-D5w Bag IVPB DAILY [facility] Magnesium Sulfate/Dextrose 1 gm in 100 mls @ 100 mls/hr 08/20/17 09:00 Magnesium 1gm/D5w - IVPB 08/20/17 09:59 ONCE ONE Potassium Chloride 10 meq/ 105 mls @ 105 mls/hr 08/20/17 09:30 Sodium Chloride IVPB 08/20/17 10:29 Q60M [facility] Mupirocin 1 applic 08/19/17 22:00 08/19/17 22:50 Bactroban Ointment (For Decolonization) - NS 08/24/17 21:59 1 applic BID [facility] Administration Imaging: - 08/19 CTAP: small amount of ascites throughout abdomen and pelvis Assessment: 47 year old male with PMHx of HIV (off HAART, last seen in [facility] 2014), active drinker, last drink 4 days ago admitted with 2 days hematemesis and melena. Plan: 1. Acute GI bleed upper and lower - For EDG today ~1400 - Maintain protonix gtt - Continue octreotide drip - D5 n2 @100cc/hr - NPO - Hold on abx at this time per ID, will stop ceftriaxone - Received 2uprbcs 08/20 with appropriate rise 2. HIV - Defer further work up until discharged and pt follows in [facility] - Was previous treated and viral load was undetectable 3. Macrocytic anemia - Likely due to chronic alcohol abuse - Folate and b12 wnl 4. Transaminitis/Ascites - Ascites seen on US - Levels down trending 5. Alcohol abuse - Last drink 4 days ago - No signs of withdrawal at this time 6. DVT prophylaxis - SCDs, hold chemical AC Visit type - Emergency Visit Emergency Visit: Yes ED Registration Date: 08/19/17 Care time: The patient presented to the Emergency Department on the above date and was hospitalized for further evaluation of their emergent condition. - New Patient This patient is new to me today: Yes Date on this admission: 08/20/17 - Critical Care Critical Care patient: No
[2017-08-20] MEDS ORDERED: POTASSIUM CHLORIDE 10 MEQ in SODIUM CHLORIDE 100 ML IVPB SCH (09:30)
[2017-08-20] MEDS ORDERED: CEFTRIAXONE 1 G/50 ML PREMIX 50 ML IVPB SCH (10:00)
[2017-08-20 10:23] LABS: ERYTHROCYTE SEDIMENTATION RATE 103 mm/hr (0-10)
[2017-08-20] MEDS ORDERED: DOCUSATE SODIUM 100 MG CAPSULE (FP) PO ONE (11:45)
[2017-08-20] MEDS ORDERED: SENNOSIDES 8.6MG TABLET (FP) PO ONE (11:46)
--- NOTE | 2017-08-20 11:59 | PN ---
Teaching Attending Note Name of Resident: Hebert Farah ATTENDING PHYSICIAN STATEMENT I saw and evaluated the patient. I reviewed the resident's note and discussed the case with the resident. I agree with the resident's findings and plan as documented. SUBJECTIVE: Patient seen and examined in the ICU. Required 2 units pRBCs overnight. Remains on IV Octreotide and PPI. For possible endoscopic evaluation today. Intake & Output 08/17/17 08/18/17 08/19/17 08/20/17 23:59 23:59 23:59 23:59 Intake Total 1350 1700 Output Total 950 1150 Balance 400 550 Weight 150 lb Last Vital Signs Temp Pulse Resp BP Pulse Ox 99.5 F 83 18 144/80 100 08/20/17 10:00 08/20/17 10:00 08/20/17 10:00 08/20/17 10:00 08/20/17 09:00 Active Medications Chlorhexidine Gluconate (Hibiclens For Decolonization -) 1 applic TP HS [facility] Last Admin: 08/20/17 00:30 Dose: 1 applic Docusate Sodium (Colace -) 100 mg PO ONCE ONE Stop: 08/20/17 11:46 Dextrose/Sodium Chloride (D5-Ns -) 1,000 mls @ 100 mls/hr IV [facility]IR [facility] Last Admin: 08/20/17 07:00 Dose: Not Given Pantoprazole Sodium 80 mg/ (Sodium Chloride) 100 mls @ 10 mls/hr IVPB Q10H [facility] PRN Reason: 8 MG/HR Last Admin: 08/20/17 11:42 Dose: Not Given Octreotide Acetate 1,200 mcg/ (Dextrose) 500 mls @ 20.83 mls/hr IVPB Q24H [facility] PRN Reason: 50 MCG/HR Last Admin: 08/20/17 06:24 Dose: Not Given CEFTRIAXONE 1 G/50 ML PREMIX (Ceftriaxone 1 Gm-D5w Bag) 50 mls @ 100 mls/hr IVPB DAILY [facility] Last Admin: 08/20/17 09:21 Dose: 100 mls/hr Mupirocin (Bactroban Ointment (For Decolonization) -) 1 applic NS BID [facility] Stop: 08/24/17 21:59 Last Admin: 08/20/17 09:22 Dose: 1 applic Senna (Senna -) 1 tab PO ONCE ONE Stop: 08/20/17 11:47 Constitutional: Yes: Well Nourished, No Distress Eyes: Yes: Conjunctiva Clear, PERRL HENT: Yes: Atraumatic, Normocephalic Neck: Yes: Trachea Midline Cardiovascular: Yes: Regular Rate and Rhythm, Tachycardia, S1, S2 Respiratory: Yes: Regular, CTA Bilaterally Gastrointestinal: Yes: Normal Bowel Sounds, Hepatomegaly, (+) Mild tenderness ...Rectal Exam: Yes: WNL Renal/: Yes: WNL Extremities: Yes: WNL Edema: No Neurological: Yes: Non-focal Alert, Oriented Psychiatric: Yes: Alert, Oriented Labs: Laboratory Results - last 24 hr 08/19/17 08/19/17 08/19/17 09:20 12:15 15:02 WBC RBC Hgb Hct MCV MCH MCHC RDW Plt Count MPV Neutrophils % Lymphocytes % Monocytes % Eosinophils % Basophils % ESR Retic Count PT with INR INR Sodium Potassium Chloride Carbon Dioxide Anion Gap BUN Creatinine Random Glucose Lactic Acid 1.2 Calcium Phosphorus Magnesium Total Bilirubin Direct Bilirubin AST ALT Alkaline Phosphatase LD Total C-Reactive Protein Total Protein Albumin Vitamin B12 Serum Folate TSH Free T4 Blood Type O POSITIVE O POSITIVE Antibody Screen Negative Crossmatch See Detail 08/19/17 08/19/17 08/19/17 15:47 15:47 16:00 WBC RBC Hgb Hct MCV MCH MCHC RDW Plt Count MPV Neutrophils % Lymphocytes % Monocytes % Eosinophils % Basophils % ESR Retic Count 1.94 H PT with INR INR Sodium Potassium Chloride Carbon Dioxide Anion Gap BUN Creatinine Random Glucose Lactic Acid Calcium Phosphorus Magnesium Total Bilirubin Direct Bilirubin AST ALT Alkaline Phosphatase LD Total 165 C-Reactive Protein Total Protein Albumin Vitamin B12 427 Serum Folate 11 TSH 3.17 Free T4 Blood Type Antibody Screen Crossmatch 08/19/17 08/19/17 08/20/17 16:00 19:00 05:00 WBC 6.1 RBC 2.14 L Hgb 7.5 L D Hct 21.7 L D MCV 101.7 H MCH 35.1 H MCHC 34.5 RDW 13.5 Plt Count 157 D MPV 9.5 Neutrophils % Lymphocytes % Monocytes % Eosinophils % Basophils % ESR Retic Count PT with INR INR Sodium Potassium Chloride Carbon Dioxide Anion Gap BUN Creatinine Random Glucose Lactic Acid Calcium Phosphorus Magnesium Total Bilirubin 1.5 H D Direct Bilirubin 0.6 H D AST 142 H D ALT 53 D Alkaline Phosphatase 69 LD Total C-Reactive Protein Total Protein 8.8 H Albumin 2.3 L Vitamin B12 Serum Folate TSH Free T4 0.93 Blood Type Antibody Screen Crossmatch 08/20/17 08/20/17 08/20/17 05:00 05:00 05:00 WBC 6.2 RBC 2.70 L D Hgb 9.4 L D Hct 26.6 L D MCV 98.7 H MCH 35.0 H MCHC 35.5 RDW 15.1 D Plt Count 176 MPV 9.6 Neutrophils % 61.2 Lymphocytes % 24.1 D Monocytes % 10.5 H Eosinophils % 3.3 D Basophils % 0.9 ESR 103 H Retic Count PT with INR INR Sodium 140 Potassium 3.5 D Chloride 105 Carbon Dioxide 24 Anion Gap 11 BUN 13 D Creatinine 0.7 D Random Glucose 93 D Lactic Acid Calcium 7.8 L Phosphorus 3.5 Magnesium 1.9 Total Bilirubin Direct Bilirubin AST ALT Alkaline Phosphatase LD Total C-Reactive Protein 1.4 H Total Protein Albumin Vitamin B12 Serum Folate TSH Free T4 Blood Type Antibody Screen Crossmatch 08/20/17 05:00 WBC RBC Hgb Hct MCV MCH MCHC RDW Plt Count MPV Neutrophils % Lymphocytes % Monocytes % Eosinophils % Basophils % ESR Retic Count PT with INR 14.20 H INR 1.26 H Sodium Potassium Chloride Carbon Dioxide Anion Gap BUN Creatinine Random Glucose Lactic Acid Calcium Phosphorus Magnesium Total Bilirubin Direct Bilirubin AST ALT Alkaline Phosphatase LD Total C-Reactive Protein Total Protein Albumin Vitamin B12 Serum Folate TSH Free T4 Blood Type Antibody Screen Crossmatch Problem List - Problems (1) GIB (gastrointestinal bleeding) Code(s): K92.2 - GASTROINTESTINAL HEMORRHAGE, UNSPECIFIED (2) Anemia Code(s): D64.9 - ANEMIA, UNSPECIFIED (3) HIV (human immunodeficiency virus infection) Code(s): Z21 - ASYMPTOMATIC HUMAN IMMUNODEFICIENCY VIRUS INFECTION STATUS Assessment/Plan 47M, HIV, active drinker 5-6 beers/day admitted with hematemesis and melena. (+ ) Ascites. Acute GIB and significant anemia suspected variceal bleeding +/- PUD Plan: For possible endoscopy NPO Octreotide IV PPI Serial CBC PPI Drip ABX per ID Dr Beauchamp Critical care time spent in reviewing chart, evaluating patient and formulating plan - 36 minutes.
--- NOTE | 2017-08-20 12:25 | PN ---
Physical Exam: SUBJECTIVE: Mr. Esparza reports minimal bilateral lower abdominal pain today. Has not had any shaking or alteration of consciousness overnight. No more vomiting or BRBPR. OBJECTIVE: No acute events overnight. Vital Signs Period Temp Pulse Resp BP Sys/Cole Pulse Ox Last 24 Hr 98.1 F-100.0 F 73-112 17-25 117-144/65-96 97-100 GENERAL: The patient is awake, alert, and fully oriented, in no acute distress. HEAD: Normal with no signs of trauma. EYES: PERRL, extraocular movements intact, sclera anicteric, conjunctiva clear. No ptosis. ENT: Ears normal, nares patent, oropharynx clear without exudates, moist mucous membranes. NECK: Trachea midline, full range of motion, supple. LUNGS: Breath sounds equal, clear to auscultation bilaterally, no wheezes, no crackles, no accessory muscle use. HEART: Regular rate and rhythm, S1, S2 without murmur, rub or gallop. ABDOMEN: Soft, nontender, nondistended, normoactive bowel sounds, no guarding, no rebound, no hepatosplenomegaly, no masses. EXTREMITIES: 2+ pulses, warm, well-perfused, no edema. NEUROLOGICAL: Cranial nerves II through XII grossly intact. Normal speech, gait not observed. PSYCH: Normal mood, normal affect. SKIN: Warm, dry, normal turgor, no rashes or lesions noted Laboratory Results - last 24 hr 08/19/17 08/19/17 08/19/17 09:20 12:15 15:02 WBC RBC Hgb Hct MCV MCH MCHC RDW Plt Count MPV Neutrophils % Lymphocytes % Monocytes % Eosinophils % Basophils % ESR Retic Count PT with INR INR Sodium Potassium Chloride Carbon Dioxide Anion Gap BUN Creatinine Random Glucose Lactic Acid 1.2 Calcium Phosphorus Magnesium Total Bilirubin Direct Bilirubin AST ALT Alkaline Phosphatase LD Total C-Reactive Protein Total Protein Albumin Vitamin B12 Serum Folate TSH Free T4 Blood Type O POSITIVE O POSITIVE Antibody Screen Negative Crossmatch See Detail 08/19/17 08/19/17 08/19/17 15:47 15:47 16:00 WBC RBC Hgb Hct MCV MCH MCHC RDW Plt Count MPV Neutrophils % Lymphocytes % Monocytes % Eosinophils % Basophils % ESR Retic Count 1.94 H PT with INR INR Sodium Potassium Chloride Carbon Dioxide Anion Gap BUN Creatinine Random Glucose Lactic Acid Calcium Phosphorus Magnesium Total Bilirubin Direct Bilirubin AST ALT Alkaline Phosphatase LD Total 165 C-Reactive Protein Total Protein Albumin Vitamin B12 427 Serum Folate 11 TSH 3.17 Free T4 Blood Type Antibody Screen Crossmatch 08/19/17 08/19/17 08/20/17 16:00 19:00 05:00 WBC 6.1 RBC 2.14 L Hgb 7.5 L D Hct 21.7 L D MCV 101.7 H MCH 35.1 H MCHC 34.5 RDW 13.5 Plt Count 157 D MPV 9.5 Neutrophils % Lymphocytes % Monocytes % Eosinophils % Basophils % ESR Retic Count PT with INR INR Sodium Potassium Chloride Carbon Dioxide Anion Gap BUN Creatinine Random Glucose Lactic Acid Calcium Phosphorus Magnesium Total Bilirubin 1.5 H D Direct Bilirubin 0.6 H D AST 142 H D ALT 53 D Alkaline Phosphatase 69 LD Total C-Reactive Protein Total Protein 8.8 H Albumin 2.3 L Vitamin B12 Serum Folate TSH Free T4 0.93 Blood Type Antibody Screen Crossmatch 08/20/17 08/20/17 08/20/17 05:00 05:00 05:00 WBC 6.2 RBC 2.70 L D Hgb 9.4 L D Hct 26.6 L D MCV 98.7 H MCH 35.0 H MCHC 35.5 RDW 15.1 D Plt Count 176 MPV 9.6 Neutrophils % 61.2 Lymphocytes % 24.1 D Monocytes % 10.5 H Eosinophils % 3.3 D Basophils % 0.9 ESR 103 H Retic Count PT with INR INR Sodium 140 Potassium 3.5 D Chloride 105 Carbon Dioxide 24 Anion Gap 11 BUN 13 D Creatinine 0.7 D Random Glucose 93 D Lactic Acid Calcium 7.8 L Phosphorus 3.5 Magnesium 1.9 Total Bilirubin Direct Bilirubin AST ALT Alkaline Phosphatase LD Total C-Reactive Protein 1.4 H Total Protein Albumin Vitamin B12 Serum Folate TSH Free T4 Blood Type Antibody Screen Crossmatch 08/20/17 05:00 WBC RBC Hgb Hct MCV MCH MCHC RDW Plt Count MPV Neutrophils % Lymphocytes % Monocytes % Eosinophils % Basophils % ESR Retic Count PT with INR 14.20 H INR 1.26 H Sodium Potassium Chloride Carbon Dioxide Anion Gap BUN Creatinine Random Glucose Lactic Acid Calcium Phosphorus Magnesium Total Bilirubin Direct Bilirubin AST ALT Alkaline Phosphatase LD Total C-Reactive Protein Total Protein Albumin Vitamin B12 Serum Folate TSH Free T4 Blood Type Antibody Screen Crossmatch Active Medications Generic Name Dose Route Start Last Admin Trade Name Freq PRN Reason Stop Dose Admin Chlorhexidine Gluconate 1 applic 08/19/17 22:00 08/20/17 00:30 Hibiclens For Decolonization - TP 1 applic HS CHIQUI Administration Dextrose/Sodium Chloride 1,000 mls @ 100 mls/hr 08/20/17 05:45 08/20/17 07:00 D5-Ns - IV Not Given ASDIR CHIQUI Pantoprazole Sodium 80 mg/ 100 mls @ 10 mls/hr 08/20/17 11:00 08/20/17 11:42 Sodium Chloride IVPB Not Given Q10H CHIQUI 8 MG/HR Octreotide Acetate 1,200 mcg/ 500 mls @ 20.83 mls/hr 08/20/17 05:51 08/20/17 06:24 Dextrose IVPB Not Given Q24H CHIQUI 50 MCG/HR CEFTRIAXONE 1 G/50 ML PREMIX 50 mls @ 100 mls/hr 08/20/17 10:00 08/20/17 09: 21 Ceftriaxone 1 Gm-D5w Bag IVPB 100 mls/hr DAILY CHIQUI Administration Mupirocin 1 applic 08/19/17 22:00 08/20/17 09:22 Bactroban Ointment (For Decolonization) - NS 08/24/17 21:59 1 applic BID CHIQUI Administration ASSESSMENT/PLAN: Mr. Esparza is a 47 yo male w/ pmh of HIV (uncontrolled before presentation) and alcohol abuse (5-6 beers / day) who presented to ER for Hematemesis and BRBPR. Suspect Acute GI bleed compounded by variceal bleeding - Endoscopy today. Variceal bleeding/GI bleed -octreotide canceled per GI -protonix drip canceled per GI -NPO -Endoscopy revealed no abnormalities on exam. HIV -ID following -CD4/Viral load pending -ANX as per ID recommendations Prophylaxis -SCDs Disposition -With clear endoscopy results and stable patient status stepping patient down to floor for further care needs. Visit type - Emergency Visit Emergency Visit: Yes ED Registration Date: 08/19/17 Care time: The patient presented to the Emergency Department on the above date and was hospitalized for further evaluation of their emergent condition. - New Patient This patient is new to me today: Yes Date on this admission: 08/20/17 - Critical Care Critical Care patient: Yes Total Critical Care Time (in minutes): 40 Critical Care Statement: The care of this patient involved high complexity decision making to prevent further life threatening deterioration of the patient 's condition and/or to evaluate & treat vital organ system(s) failure or risk of failure.
[2017-08-20] MEDS ORDERED: PROPOFOL 20 ML ONE ×2 (12:39)
--- NOTE | 2017-08-20 13:11 | PROC ---
Endoscopy Procedure Endoscopy procedure completed. Please see scanned procedure report. No abnormalities to explain hematemesis were found on this exam. Specifically, No lelo lesions, gastric, or peptic ulcers, intraluminal lesions, portal hypertensive gastropathy, esophageal, or gastric varices noted on the exam. Resume low salt diet Aldactone and lasix 100 and 40 mg/day respectively Consider diagnostic paracentesis viral, autoimmune serologies
[2017-08-20] MEDS ORDERED: FUROSEMIDE 20 MG TABLET (FP) PO SCH (13:15)
[2017-08-20] MEDS ORDERED: SPIRONOLACTONE 25 MG TABLET (FP) PO SCH (13:15)
[2017-08-20] MEDS ORDERED: DEXTROSE 5%-NORMAL SALINE 1,000 ML IV SCH (19:09)
[2017-08-21 06:57] LABS: BASO % 1.1 % (0-2.0); EOS % 5.9 % (0-4.5); HEMATOCRIT 28.1 % (35.4-49); HEMOGLOBIN 9.9 GM/dL (11.7-16.9); LYMPH % 20.1 % (8-40); MCH 34.7 pg (25.7-33.7); MCHC 35.2 g/dl (32.0-35.9); MEAN CELL VOLUME 98.6 fl (80-96); MEAN PLT VOLUME 9.7 fl (7.5-11.1); MONO % 8.3 % (3.8-10.2); NEUT % 64.6 % (42.8-82.8); PLATELET COUNT 192 K/MM3 (134-434); RBC 2.85 M/mm3 (4.00-5.60); RDW 15.2 % (11.9-15.9); WHITE BLOOD COUNT 5.2 K/mm3 (4.0-10.0)
[2017-08-21 07:22] LABS: ALBUMIN 2.4 g/dl (3.4-5.0); ANION GAP 6 (8-16); BLOOD UREA NITROGEN 8 mg/dL (7-18); CALCIUM 7.2 mg/dL (8.5-10.1); CHLORIDE 100 mmol/L (98-107); CO2 28 mmol/L (21-32); CREATININE 0.7 mg/dL (0.7-1.3); GLUCOSE,RANDOM 96 mg/dL (74-106); POTASSIUM 3.8 mmol/L (3.5-5.1); SGOT/AST 257 U/L (15-37); SGPT/ALT 93 U/L (12-78); SODIUM 134 mmol/L (136-145)
[2017-08-21 07:24] LABS: ALK PHOS 69 U/L (45-117); BILIRUBIN,TOTAL 1.2 mg/dL (0.2-1.0); MAGNESIUM 1.9 mg/dL (1.8-2.4); PHOSPHOROUS 3.1 mg/dL (2.5-4.9)
[2017-08-21] MEDS ORDERED: CEFTRIAXONE 1 G/50 ML PREMIX 50 ML IVPB SCH (10:00)
[2017-08-21 13:37] VITALS: BP 137/86; PULSE 74; TEMP 98.6
--- NOTE | 2017-08-21 14:04 | DS ---
Physical Exam: SUBJECTIVE: Patient seen and examined. he is tolerating food no complaints no vomiting, no melena OBJECTIVE: Vital Signs Period Temp Pulse Resp BP Sys/Cole Pulse Ox Last 24 Hr 98.5 F-99.2 F 64-86 18-23 133-143/66-86 98-98 PE Neuro: alert, awake, cn 2-12intact Pulm: CTA anteriorly CV: s1 s2 rrr no mrg Abd: s nt nd +bs Ext: no le edema, warm Laboratory Results - last 24 hr 08/19/17 08/19/17 08/21/17 16:00 16:00 06:07 WBC 5.2 RBC 2.85 L Hgb 9.9 L Hct 28.1 L MCV 98.6 H MCH 34.7 H MCHC 35.2 RDW 15.2 Plt Count 192 MPV 9.7 Neutrophils % 64.6 Lymphocytes % 20.1 Monocytes % 8.3 Eosinophils % 5.9 H Basophils % 1.1 Haptoglobin 118 Sodium Potassium Chloride Carbon Dioxide Anion Gap BUN Creatinine Creat Clearance w eGFR Random Glucose Calcium Phosphorus Magnesium Ferritin Total Bilirubin AST ALT Alkaline Phosphatase Total Protein Albumin Free T3 2.2 08/21/17 08/21/17 06:07 06:07 WBC RBC Hgb Hct MCV MCH MCHC RDW Plt Count MPV Neutrophils % Lymphocytes % Monocytes % Eosinophils % Basophils % Haptoglobin Sodium 134 L Potassium 3.8 Chloride 100 Carbon Dioxide 28 Anion Gap 6 L BUN 8 D Creatinine 0.7 Creat Clearance w eGFR > 60 Random Glucose 96 Calcium 7.2 L Phosphorus 3.1 Magnesium 1.9 Ferritin 523.462 H Total Bilirubin 1.2 H AST 257 H D ALT 93 H D Alkaline Phosphatase 69 Total Protein 9.0 H Albumin 2.4 L Free T3 HOSPITAL COURSE: Date of Admission:08/19/17 Date of Discharge: 08/21/17 Minutes to complete discharge: 37 Discharge Summary Reason For Visit: SEPSIS Current Active Problems Anemia (Acute) GIB (gastrointestinal bleeding) (Acute) Sepsis (Acute) Hospital Course: Initial Hospital Course: Briefly, this 47 year old male with a PMH significant for alcohol abuse and HIV not on medication presented to the ED with a report of hematemesis x2days. He has had "black" stools over the past few days, also BRBPR. Patient also complained of abdominal pain in the periumbilical area and subjective fever. Patient admitted to drinking 7 beers daily, 10 beers on weekend days. Last drink 4 days ago prior to admission. Patient admitted he stopped going to the [facility] several years ago and has been off antiviral medication since. His last recorded attendance there was in 04/2015. Imaging: - 08/19 CTAP: small amount of ascites throughout abdomen and pelvis Subsequent Hospital Course: Assessment: 47 year old male with PMHx of HIV (off HAART, last seen in [facility] 2014), active drinker, last drink 4 days ago admitted with 2 days hematemesis and melena. Plan: 1. Acute GI bleed upper and lower - EGD with no abnormalities to explain hematemesis. - Start aldactone 100mg daily and lasix 40mg daily - Not enough abdominal fluid for diagnostic paracentesis - Viral and autoimmune serologies sent - pt for GI outpt follow up - Received 2uprbcs 08/20 2. HIV - Defer further work up until discharged and pt follows in [facility] - Was previous treated and viral load was undetectable 3. Macrocytic anemia - Likely due to chronic alcohol abuse - Folate and b12 wnl 4. Transaminitis/Ascites - Ascites seen on US - Levels down trending 5. Alcohol abuse - Counseled on abstinence - No signs of withdrawal at this time Dispo: - Home with above meds and follow up Condition: Stable - Instructions Diet, Activity, Other Instructions: Please return to the ED for any new, persistent, or worsening symptoms. Follow up with you doctor and [facility] for continued management Take new medications as directed Referrals: Stevie Cancino MD [Staff Physician] - Frank Bautista MD [Staff Physician] - Disposition: HOME - Home Medications Comprehensive Discharge Medication List: Ambulatory Orders Emtricitab/Rilpivirine/Tenofov [Complera Tablet] 1 each PO QID 01/31/12 Furosemide [Lasix] 40 mg PO DAILY #30 tablet 08/21/17 Spironolactone [Aldactone] 100 mg PO DAILY #30 tablet 08/21/17 This patient is new to me today: No Emergency Visit: Yes ED Registration Date: 08/19/17 Care time: The patient presented to the Emergency Department on the above date and was hospitalized for further evaluation of their emergent condition. Critical Care patient: No - Discharge Referral Referred to [facility] Med P.C.: No
--- NOTE | 2017-08-21 16:13 | PATH ---
Surgical Pathology Report Patient Name: JOLANTA OLSON [facility]. Rec. #: [id number] /Age/Gender: 1970 (Age: 47) / M Account: [id number] Location: ICU TILE SETTER Taken: 08/20/2017 Received: 08/20/2017 Reported: 08/21/2017 Physicians: Cristi Parker ACNP Specimen(s) Received A: BX DUODENUM 2ND PORTION B: BX ANTRUM AND BODY Clinical History Preoperative diagnosis: Hematemesis Postoperative diagnosis: Gastritis and duodenitis Final Diagnosis A. DUODENUM, SECOND PORTION, BIOPSY: DUODENAL MUCOSA WITHOUT SIGNIFICANT PATHOLOGIC FINDINGS. B. STOMACH, ANTRUM/BODY, BIOPSY: GASTRIC ANTRAL AND BODY MUCOSA WITH MODERATE CHRONIC GASTRITIS. IMMUNOHISTOCHEMICAL STAIN FOR H. PYLORI IS NEGATIVE. Electronically Signed Chantelle Luna M.D. Gross Description A. Received in formalin, labeled "biopsy duodenum second portion" is a muse, irregular portion of soft tissue measuring 0.6 cm. in greatest dimension. The specimen is submitted in toto in one cassette. B. Received in formalin, labeled "biopsy antrum/body" are 2 muse, irregular portions of soft tissue averaging 0.3 cm. in greatest dimension. The specimens are submitted in toto in one cassette. 08/20/2017 [facility]08/20/2017
[2017-08-22 14:14] LABS: TRANSGLUTAMINASE IGA < 2 U/mL (0-3); TRANSGLUTAMINASE IGG 16 U/mL (0-5)
[2017-08-22 16:29] LABS: HBSAG SCREEN Negative (Negative); HEP A AB, IGM Negative (Negative); HEP B CORE AB, TOT Positive (Negative)
== END 2017-08-21 17:07 | disposition home or self-care (01) | DRG 253 ==
LOC: JER 08:58 → JERBED 15:24 → J4W 17:51 → JICU 21:24 → J2W 08-20 20:28
PROVIDERS: ADMIT Internal Medicine; ATTEND Nurse Practitioner Acute Care
PROC: 0DD68ZX Extraction of Stomach, Via Natural or Artificial Opening Endoscopic, Diagnostic (ICD-10-PCS; 2017-08-20)
PROC: 0DD98ZX Extraction of Duodenum, Via Natural or Artificial Opening Endoscopic, Diagnostic (ICD-10-PCS; principal; 2017-08-20 11:00)
DX: K92.2 Gastrointestinal hemorrhage, unspecified (principal); K92.0 Hematemesis; R18.8 Other ascites; R16.0 Hepatomegaly, not elsewhere classified; Z21 Asymptomatic human immunodeficiency virus [HIV] infection status; K29.80 Duodenitis without bleeding; K29.70 Gastritis, unspecified, without bleeding; F10.10 Alcohol abuse, uncomplicated; Y90.0 Blood alcohol level of less than 20 mg/100 ml; F17.210 Nicotine dependence, cigarettes, uncomplicated; D53.9 Nutritional anemia, unspecified; R74.0 Nonspecific elevation of levels of transaminase and lactic acid dehydrogenase [LDH]; Z91.14 Patient's other noncompliance with medication regimen; E88.09 Other disorders of plasma-protein metabolism, not elsewhere classified; D68.8 Other specified coagulation defects; R00.0 Tachycardia, unspecified; F50.9 Eating disorder, unspecified
CPT/HCPCS: 36415; 36430; 36511; 71045-TC-FY; 74177-TC; 76705-TC; 80048; 80053; 80076; 80307; 81003; 81015; 82105; 82272; 82607; 82728; 82746; 83010; 83516; 83540; 83550; 83605; 83615; 83735; 84100; 84439; 84443; 84481; 84484; 85025; 85027; 85044; 85610; 85651; 85730; 86038; 86140; 86359; 86360; 86704; 86706; 86708; 86850; 86900; 86901; 86922; 87040; 87086; 87340; 87536; 87804; 88305-TC; 93005; 93010; 99285-25; J0131; J7030; P9038; P9058

== ENCOUNTER 2017-08-23 01:16 | Inpatient (IN) | payer MEDICARE, OTHER ==
[2017-08-23 02:03] LABS: BASO % 0.5 % (0-2.0); EOS % 3.1 % (0-4.5); HEMATOCRIT 19.4 % (35.4-49); LYMPH % 14.2 % (8-40); MCH 34.3 pg (25.7-33.7); MCHC 33.9 g/dl (32.0-35.9); MEAN CELL VOLUME 101.1 fl (80-96); MEAN PLT VOLUME 9.4 fl (7.5-11.1); MONO % 15.4 % (3.8-10.2); NEUT % 66.8 % (42.8-82.8); PLATELET COUNT 193 K/MM3 (134-434); RBC 1.92 M/mm3 (4.00-5.60); RDW 14.9 % (11.9-15.9); WHITE BLOOD COUNT 6.4 K/mm3 (4.0-10.0)
[2017-08-23 02:07] LABS: HEMOGLOBIN 6.6 GM/dL (11.7-16.9)
[2017-08-23] MEDS ORDERED: PANTOPRAZOLE SODIUM 40 MG in SODIUM CHLORIDE 100 ML IVPB ONE (02:10)
[2017-08-23] MEDS ORDERED: ONDANSETRON 4 MG/2 ML VIAL IVPUSH STA (02:10)
[2017-08-23 02:12] LABS: INR 1.29 (0.82-1.09); PROTHROMBIN TIME (PATIENT) 14.6 SEC (9.98-11.88)
--- NOTE | 2017-08-23 02:14 | PDOC ---
Attending Attestation - Resident Resident Name: Tim Orona - ED Attending Attestation I have performed the following: I have examined & evaluated the patient, The case was reviewed & discussed with the resident, I agree w/resident's findings & plan, Exceptions are as noted - Physicial Exam PE: 08/23/17 02:47 *Physical Exam General Appearance: Yes: Appropriately Dressed. No: Apparent Distress, Intoxicated HEENT: positive: EOMI, LUKE, Normal ENT Inspection, Normal Voice, TMs Normal, Pharynx Normal. Pale conjunctivae negative: Photophobia, Scleral Icterus (R), Scleral Icterus (L) Neck: positive: Trachea midline, Normal Thyroid, Supple. negative: Tender, Rigid, Carotid bruit, Stridor, Lymphadenopathy (R), Lymphadenopathy (L), Thyromegaly Respiratory/Chest: positive: Lungs Clear, Normal Breath Sounds. negative: Chest Tender, Respiratory Distress, Accessory Muscle Use, Labored Respiration, RES, Crackles, Rales, Rhonchi, Stridor, Wheezing, Dullness Cardiovascular: positive: Regular Rhythm, Regular Rate, S1, S2. negative: Edema , JVD, Murmur, Bradycardia, Tachycardia Vascular Pulses: Dorsalis-Pedis (R): 2+, Doralis-Pedis (L): 2+ Gastrointestinal/Abdominal: positive: Normal Bowel Sounds, Flat, Soft. negative : Tender, Organomegaly, Pulsatile Mass, Increased Bowel Sounds, Decreased BS, Distended, Guarding, Rebound, Hernia, Hepatomegaly, Spleenomegaly Lymphatic: negative: Adenopathy, Tenderness Musculoskeletal: positive: Normal Inspection. negative: CVA Tenderness, Decreased Range of Motion Extremity: positive: Normal Capillary Refill, Normal Inspection, Normal Range of Motion, Pelvis Stable. negative: Tender, Pedal Edema, Swelling, Erythema Integumentary: positive: Normal Color, Dry, Warm. negative: Cyanotic, Erythema , Jaundice, Rash Neurologic: positive: heel molder II-XII NML intact, Fully Oriented, Alert, Normal Mood/ Affect, Motor Strength 5/5. negative: EOM Palsy, Facial Droop, Sensory Deficit - Medical Decision Making 08/23/17 02:48 Pt to be admitted of blood transfusion <Matias Fernandes - Last Filed: 08/23/17 02:47> - HPI HPI: 08/23/17 02:39 The patient is a 47 year old male, with a significant past medical history of HIV on (HAART x 3 days), EtOH dependence, who presents to the emergency department via EMS with, hematemesis and bright red blood per rectum. Patient reports earlier these evening he had one episode of phil red blood during a bowel movement and an episode of hematemesis. The patient also reports a sharp mid abdominal pain and states he has had the abdominal pain since Sunday (5 days ) which began as a diffuse crampy pain. Patient has a recent admission from 08/19 -08/21 with endoscopy pathology report of antral and body gastritis, duodenitis. He denies any recent fevers, chills, headache or dizziness. He denies any recent chest pain or shortness of breath. He denies any recent dysuria, frequency, urgency or hematuria. Allergies: NKA Documentation prepared by Cortez Rubin, acting as manager medical for Matias Fernandes DO. <Cortez Rubin - Last Filed: 08/23/17 02:54>
--- NOTE | 2017-08-23 02:23 | PDOC ---
History of Present Illness - General Chief Complaint: Vomiting Blood Stated Complaint: VOMITING BLOOD Time Seen by Provider: 08/23/17 01:34 - History of Present Illness Initial Comments: 08/23/17 02:16 47 yo M with h/o EtoH dependence, Esophagitis HIV ( on HAART x 3 days) BIBA with hematemesis and blood per rectum. Patient states that earlier this evening he drank a soda and shortly after he had large bright red bloody bowel movement. Also reports large voluminous bright red emesis. Complains of midabdominal/focal, sharp, abdominal pain above umbilicus. Reports devleopment of abdominal pain this past Sunday, which was more diffuse midabdominal, crampy pain. Denies F/C, CP, SOB, urinary complaints, lightheadedness, weakness, sensory disturbance. Previous admission ( 08/19- 08/23) with endoscopy pathology report of antral and body gastritis and duodenitits ( 2nd part of duodenum), H/Pylori Neg. Reports last alcoholic beverage 13 days ago, but prior documentation from recent visit states that last drink was 8 days ago ( 08/15/17). Typically drinks 7 beers per day on weekdays and 10 per day on weekends. Recent h/o uncontrolled HIV, now on HARRT x 3 days. Past History - Past Medical History Allergies/Adverse Reactions: Allergies Allergy/AdvReac Type Severity Reaction Status Date / Time No Known Allergies Allergy Verified 08/23/17 01:34 Home Medications: Ambulatory Orders Emtricitab/Rilpivirine/Tenofov [Complera Tablet] 1 each PO QID 01/31/12 Furosemide [Lasix] 40 mg PO DAILY #30 tablet 08/21/17 Spironolactone [Aldactone] 100 mg PO DAILY #30 tablet 08/21/17 Anemia: No Asthma: No Cancer: No Cardiac Disorders: No CVA: No COPD: No CHF: No Dementia: No Diabetes: No GI Disorders: No Disorders: No HTN: No Hypercholesterolemia: No Liver Disease: No Seizures: No Thyroid Disease: No - Surgical History Abdominal Surgery: No Appendectomy: No Cardiac Surgery: No Cholecystectomy: No GI Surgery: Yes (endoscopy (neg)) Lung Surgery: No Neurologic Surgery: No Orthopedic Surgery: No - Suicide/Smoking/Psychosocial Hx Smoking History: Current some day smoker Have you smoked in the past 12 months: Yes Number of Cigarettes Smoked Daily: 4 Cigars Per Day: 0 Information on smoking cessation initiated: No 'Breaking Loose' booklet given: 08/19/17 Hx Alcohol Use: Yes (6-7 BEERs daily, more on weekends) Drug/Substance Use Hx: No Substance Use Type: None Hx Substance Use Treatment: No Review of Systems - Review of Systems Comments:: 08/23/17 02:27 GENERAL/CONSTITUTIONAL: No fever or chills. No weakness. HEAD, EYES, EARS, NOSE AND THROAT: No change in vision. No ear pain or discharge. No sore throat. CARDIOVASCULAR: No chest pain or shortness of breath RESPIRATORY: No cough, wheezing, or hemoptysis. GASTROINTESTINAL: + Abdominal pain and BRPR, nausea and vomiting. No diarrhea or constipation. GENITOURINARY: No dysuria, frequency, or change in urination. MUSCULOSKELETAL: No joint or muscle swelling or pain. No neck or back pain. SKIN: No rash NEUROLOGIC: No headache, vertigo, loss of consciousness, or change in strength/ sensation. ENDOCRINE: No increased thirst. No abnormal weight change HEMATOLOGIC/LYMPHATIC: No anemia, easy bleeding, or history of blood clots. ALLERGIC/IMMUNOLOGIC: No hives or skin allergy. *Physical Exam - Vital Signs Last Vital Signs Temp Pulse Resp BP Pulse Ox 99.7 F H 85/51 08/23/17 02:02 08/23/17 01:39 - Physical Exam Comments: 08/23/17 02:27 GENERAL: Awake, alert, and fully oriented, in no acute distress HEAD: No signs of trauma, normocephalic, atraumatic EYES: + Slceral Icterus. PERRLA, EOMI,conjunctiva clear ENT: Auricles normal inspection, hearing grossly normal, nares patent, oropharynx clear without exudates. Moist mucosa NECK: Normal ROM, supple, no lymphadenopathy, JVD, or masses LUNGS: No distress, speaks full sentences, clear to auscultation bilaterally HEART: Regular rate and rhythm, normal S1 and S2, no murmurs, rubs or gallops, peripheral pulses normal and equal bilaterally. ABDOMEN: Soft, + Midepegastric and periumbilical ttp. normoactive bowel sounds. No guarding, no rebound. No masses. Neg CVA ttp. Neg suprpaubic ttp. EXTREMITIES : Normal inspection, Normal range of motion, no edema. No clubbing or cyanosis. SKIN: Warm, Dry, normal turgor, no rashes or lesions noted ED Treatment Course - LABORATORY CBC & Chemistry Diagram: 08/23/17 01:45 08/23/17 01:45 - ADDITIONAL ORDERS Additional order review: Laboratory Results 08/23/17 01:50 Crossmatch See Detail 08/23/17 01:50 RBC 1.92 L D MCV 101.1 H MCHC 33.9 RDW 14.9 MPV 9.4 Neutrophils % 66.8 Lymphocytes % 14.2 D Monocytes % 15.4 H D Eosinophils % 3.1 Basophils % 0.5 - Medications Given in the ED: ED Medications Discontinued Medications Generic Name Dose Route Start Last Admin Trade Name Charline PRN Reason Stop Dose Admin Ondansetron HCl 4 mg 08/23/17 02:10 08/23/17 02:13 Zofran Injection IVPUSH 08/23/17 02:11 4 mg ONCE STA Administration Medical Decision Making - Medical Decision Making 08/23/17 02:31 47 yo M with h/o EtoH dependence, Esophagitis HIV ( on HAART x 3 days) BIBA with hematemesis and blood per rectum. Endorses midabdominal/focal, sharp, abdominal pain above umbilicus worsened from prior diffuse, crampy, midabdominal , this past Sunday. Denies F/C, CP, SOB, urinary complaints, lightheadedness, weakness, sensory disturbance. Previous admission ( 08/19- 08/23) with endoscopy pathology report of antral and body gastritis and duodenitits ( 2nd part of duodenum), H/Pylori Neg. Typically drinks 7 beers per day on weekdays and 10 per day on weekends.Last CD4 Count 272 ( 08/21). Physical exam noteable for abdominal distension, and focal periumbilical ttp. Will assess for occult UGI vs LGI bleed. Will consider esophageal variceal bleed, borheeave syndrome, PUD, vs. perforation. Will fluid resuscitate and maintain airway. Ed Course: CBC, CMP, lactic acid, FOBT, Lipase NS 2 L PPI, Zofran, Ocrteotide 08/23/17 02:35 H/H: 6.6/19.4 2 U PRBC 08/23/17 02:54 Cr/BUN: 1.2/29 ( 0.7/8.0 ~08/21 ) Per Dr. miller and Dr. Dawn consult Dr. Warren Abdalla 08/23/17 03:04 Cefotaxime, Levaquin ppx Handoff to [facility] [phone]. Pt. accepted to ICU. Awaiting bed 08/23/17 03:17 Lactic acid 3.1 08/23/17 03:45 EKG: Sinus tachycardia with absent CHRISTOPHER, or STD. Normal intervals and axis *DC/Admit/Observation/Transfer Diagnosis at time of Disposition: GIB (gastrointestinal bleeding) - Discharge Dispostion Admit: Yes - Referrals - Patient Instructions - Post Discharge Activity
[2017-08-23 02:36] LABS: ALBUMIN 1.9 g/dl (3.4-5.0); AMYLASE 164 U/L (25-115); ANION GAP 12 (8-16); BILIRUBIN,TOTAL 0.7 mg/dL (0.2-1.0); BLOOD UREA NITROGEN 29 mg/dL (7-18); CALCIUM 7.2 mg/dL (8.5-10.1); CHLORIDE 102 mmol/L (98-107); CO2 21 mmol/L (21-32); CREATININE 1.2 mg/dL (0.7-1.3); GLUCOSE,RANDOM 125 mg/dL (74-106); LDH 196 U/L (87-241); POTASSIUM 3.7 mmol/L (3.5-5.1); SGOT/AST 185 U/L (15-37); SGPT/ALT 99 U/L (12-78); SODIUM 135 mmol/L (136-145); TOT PROT 7.6 g/dl (6.4-8.2)
[2017-08-23 02:39] LABS: ALK PHOS 79 U/L (45-117)
[2017-08-23 02:41] LABS: LIPASE 1464 U/L (73-393)
[2017-08-23] MEDS ORDERED: CEFOTAXIME SODIUM 1,000 MG in DEXTROSE 5%-WATER - 50 ML IVPB ONE (03:02)
--- NOTE | 2017-08-23 03:08 | PN ---
Teaching Attending Note Name of Resident: Santy Wheeler ATTENDING PHYSICIAN STATEMENT I saw and evaluated the patient. I reviewed the resident's note and discussed the case with the resident. I agree with the resident's findings and plan as documented. SUBJECTIVE: 47 M with Pmhx of ETOH Abuse, and HIV (CD4 272) who was recently admitted on for hematemsis. EGD was done and EGD showed no abnormalities. A CTAP done on 08/19 showed a small amount of ascites. He presents today after drinking a soda, after which he noticed a large bloody BM, Also with asosciated abdominal pain, crampy/ EGD showed gastritis and Dueodenitis, Pt. was also recently started in HAART. States he still has pain above umbilicus. Notes he had large volume hematemsis X1 earlier. No fevers or chills. No CP or pressure. No current N, V, D. Denies any shortness of breath and states his abdominal distension has decreased. OBJECTIVE: Physical: VS: Vital Signs Period Temp Pulse Resp BP Sys/Cole Pulse Ox Last 24 Hr 99.7 F 85/51 GEN: NAD, Resting in bed, AA0X3 HEENT: NCAT, PERRL, Throat without erythema or exudates CARD: RRR S1, S2 RESP: CTAB ABD: Mild Distension BSx4, NTD to palpation EXT: - C/C/E RECTAL: Deferred CBCD WBC 6.4 K/mm3 (4.0-10.0) 08/23/17 01:45 RBC 1.92 M/mm3 (4.00-5.60) L D 08/23/17 01:45 Hgb 6.6 GM/dL (11.7-16.9) L* D 08/23/17 01:45 Hct 19.4 % (35.4-49) L D 08/23/17 01:45 MCV 101.1 fl (80-96) H 08/23/17 01:45 MCHC 33.9 g/dl (32.0-35.9) 08/23/17 01:45 RDW 14.9 % (11.9-15.9) 08/23/17 01:45 Plt Count 193 K/MM3 (134-434) 08/23/17 01:45 MPV 9.4 fl (7.5-11.1) 08/23/17 01:45 CMP Sodium 135 mmol/L (136-145) L 08/23/17 01:45 Potassium 3.7 mmol/L (3.5-5.1) 08/23/17 01:45 Chloride 102 mmol/L (98-107) 08/23/17 01:45 Carbon Dioxide 21 mmol/L (21-32) D 08/23/17 01:45 Anion Gap 12 (8-16) 08/23/17 01:45 BUN 29 mg/dL (7-18) H D 08/23/17 01:45 Creatinine 1.2 mg/dL (0.7-1.3) D 08/23/17 01:45 Creat Clearance w eGFR > 60 (>60) 08/23/17 01:45 Random Glucose 125 mg/dL (74-106) H D 08/23/17 01:45 Calcium 7.2 mg/dL (8.5-10.1) L 08/23/17 01:45 Total Bilirubin 0.7 mg/dL (0.2-1.0) D 08/23/17 01:45 AST 185 U/L (15-37) H D 08/23/17 01:45 ALT 99 U/L (12-78) H 08/23/17 01:45 Alkaline Phosphatase 79 U/L (45-117) 08/23/17 01:45 Total Protein 7.6 g/dl (6.4-8.2) 08/23/17 01:45 Albumin 1.9 g/dl (3.4-5.0) L D 08/23/17 01:45 CARDIAC ENZYMES Creatine Kinase 88 IU/L (39-308) 08/23/17 01:45 Troponin I 0.02 ng/ml (0.00-0.05) 08/23/17 01:45 STOOL OCCULT- PENDING EKG- PENDING ASSESSMENT AND PLAN: 47 M with hx. of Ashtma, Etoh abuse, HIV (recently on HAART), recent admit for hematemsis who presents brigth red blood per rectum/dark tarry blood. 1.) GI BLEED- Hemetemsis and Hematochezia - NPO - Type & Screen - IVF - Keep HgB>7.0 - Transfuse PRBC - PPI, on prior EGD done 08/19- NO portal htn, varices - GI Consult 2.) Pancreatitis - NPO - IVF - Lipid Panel - Repeat Lipase 3.) ETOH ABUSE Hx. - As per. pt. last ETOH >10 days ago 4.) HIV - on HAART since last D/C - [facility] 5.) Asthma - Nebs prn 6.) Dvt Ppx - SCDs Accepted to ICU CC Time: 45
[2017-08-23] MEDS ORDERED: OCTREOTIDE ACETATE 1,200 MCG in DEXTROSE 5%-WATER - 488 ML IVPB SCH (03:15)
[2017-08-23] MEDS ORDERED: SODIUM CHLORIDE 1,000 ML IV STA (03:46)
--- NOTE | 2017-08-23 03:57 | HP ---
CHIEF COMPLAINT: Hematemesis HISTORY OF PRESENT ILLNESS: 47 year old male with a history of HIV (on HAART for 3 days), alcohol abuse, gastritis, and recent upper GI bleed presents to the hospital for one episode of hematemesis that began at 2am tonight and abdominal pain for several days duration. He states that he was admitted to the hospital on Sunday for vomiting a large amount of blood. After discharge, he reports no further hematemesis until tonight, but he does state that he has had some BRBPR continuously since then. He states that he has had 7/10 crampy, non-radiating abdominal pain for nearly a week in duration, which began as a sharp pain but then transitioned into a milder, duller pain. Patient states that he has not had a drink in 10 days, and was not doing anything in particular when the hematemesis started. Denies withdrawal symptoms. States that he lives in a skilled nursing. Patient states that he has never had a colonoscopy. Denies chest pain, shortness of breath, fevers, chills, lightheadedness. ER course was notable for: (1) Hgb 6.6 (2) BP 85/51 (3) Lipase 1464 PAST MEDICAL HISTORY: HIV (on HAART for 3 days), alcohol abuse, gastritis, and recent upper GI bleed PAST SURGICAL HISTORY: L eye surgery (unclear) Social History: Smokin-5 cigarettes a day for 30+ years Alcohol: 4-6 drinks a day, reported last drink 10 days ago Drugs: none Allergies No Known Allergies Allergy (Verified 08/23/17 01:34) HOME MEDICATIONS: Home Medications Medication Instructions Recorded Emtricitab/Rilpivirine/Tenofov 1 each PO QID 01/31/12 [Complera Tablet] Furosemide [Lasix] 40 mg PO DAILY #30 tablet 08/21/17 Spironolactone [Aldactone] 100 mg PO DAILY #30 tablet 08/21/17 REVIEW OF SYSTEMS CONSTITUTIONAL: Absent: fever, chills, diaphoresis, generalized weakness, malaise, loss of appetite, weight change HEENT: Absent: rhinorrhea, nasal congestion, throat pain, throat swelling, difficulty swallowing, mouth swelling, ear pain, eye pain, visual changes CARDIOVASCULAR: Absent: chest pain, syncope, palpitations, irregular heart rate, lightheadedness , peripheral edema RESPIRATORY: Absent: cough, shortness of breath, dyspnea with exertion, orthopnea, wheezing, stridor, hemoptysis GASTROINTESTINAL: abdominal pain Absent: abdominal distension, nausea, vomiting, diarrhea, constipation, melena, hematochezia GENITOURINARY: Absent: dysuria, frequency, urgency, hesitancy, hematuria, flank pain, genital pain MUSCULOSKELETAL: Absent: myalgia, arthralgia, joint swelling, back pain, neck pain SKIN: Absent: rash, itching, pallor HEMATOLOGIC/IMMUNOLOGIC: Absent: easy bleeding, easy bruising, lymphadenopathy, frequent infections ENDOCRINE: Absent: unexplained weight gain, unexplained weight loss, heat intolerance, cold intolerance NEUROLOGIC: Absent: headache, focal weakness or paresthesias, dizziness, unsteady gait, seizure, mental status changes, bladder or bowel incontinence PSYCHIATRIC: Absent: anxiety, depression, suicidal or homicidal ideation, hallucinations. PHYSICAL EXAMINATION Vital Signs - 24 hr 08/23/17 08/23/17 01:39 02:02 Temperature 99.7 F H Blood Pressure 85/51 [Left Arm] GENERAL: A&Ox3, mild distress EYES: PERRLA, EOMI ENT: Moist mucus membranes NECK: No JVD LUNGS: CTA, no wheezes HEART: RRR, no murmurs ABDOMEN: Soft, tender to palpation diffusely, BS present MUSCULOSKELETAL: No CVA Tenderness EXTREMITIES: 2+ pulses, no edema. NEUROLOGICAL: Cranial nerves II-XII intact. Laboratory Results - last 24 hr 08/23/17 08/23/17 08/23/17 01:45 01:45 01:45 WBC 6.4 RBC 1.92 L D Hgb 6.6 L* D Hct 19.4 L D MCV 101.1 H MCH 34.3 H MCHC 33.9 RDW 14.9 Plt Count 193 MPV 9.4 Neutrophils % 66.8 Lymphocytes % 14.2 D Monocytes % 15.4 H D Eosinophils % 3.1 Basophils % 0.5 PT with INR 14.60 H INR 1.29 H Sodium 135 L Potassium 3.7 Chloride 102 Carbon Dioxide 21 D Anion Gap 12 BUN 29 H D Creatinine 1.2 D Creat Clearance w eGFR > 60 Random Glucose 125 H D Lactic Acid Calcium 7.2 L Total Bilirubin 0.7 D AST 185 H D ALT 99 H Alkaline Phosphatase 79 LD Total 196 Creatine Kinase 88 Troponin I 0.02 Total Protein 7.6 Albumin 1.9 L D Total Amylase 164 H Lipase 1464 H Stool Occult Blood Blood Type Antibody Screen Crossmatch 08/23/17 08/23/17 08/23/17 01:50 02:20 02:55 WBC RBC Hgb Hct MCV MCH MCHC RDW Plt Count MPV Neutrophils % Lymphocytes % Monocytes % Eosinophils % Basophils % PT with INR INR Sodium Potassium Chloride Carbon Dioxide Anion Gap BUN Creatinine Creat Clearance w eGFR Random Glucose Lactic Acid 3.1 H* Calcium Total Bilirubin AST ALT Alkaline Phosphatase LD Total Creatine Kinase Troponin I Total Protein Albumin Total Amylase Lipase Stool Occult Blood Positive Blood Type O POSITIVE Antibody Screen Negative Crossmatch See Detail ASSESSMENT/PLAN: 47 year old male with a hx of HIV, etoh abuse, UGI bleed is admitted for upper GI bleed with concomitant acute pancreatitis #Upper Gastrointestinal Bleed: variceal vs. PUD, previous upper endoscopy showed antral/body gastritis and duodenitis, recent RUQ US did not show evidence of gallstones -ICU admission warranted due to hypotension (85/51, minimally responsive to fluid hydration) -Frequent BP checks -2U PRBC ordered, repeat H&H and transfuse with a Hgb goal of 7 -received octreotide and abx in ED, hold these for now -NPO -protonix 40mg IV push BID -bolus with NS, maintenance fluids @ 125 cc/hr -lactate 3.1, trend lactate -GI consult Dr. Bautista appreciated #Acute Pancreatitis: patient meets criteria for acute pancreatitis -lipase 1464 + abdominal pain -keep NPO for bowel rest -fluid hydration w/ NS @ 125cc/hr -lipid profile #Anemia: likely 2/2 blood loss from UGI bleed -transfuse 2U PRBC -transfuse with a hgb goal of 7 #Alcohol Abuse: patient reports previous drink 10 days ago, but unreliable -ativan 1mg IV Q6h PRN for withdrawal symptoms #HIV: just started HAART medications 3 days ago -hold HAART for now, restart when able to tolerate PO #FEN -NS 1 liter bolus and then NS 125cc/hr -Will receive 2U PRBCs -NPO until stable #Prophylaxis -SCDs for DVT prophylaxis -protonix for GI #Disposition -Admit to ICU for monitoring Visit type - Emergency Visit Emergency Visit: Yes Care time: The patient presented to the Emergency Department on the above date and was hospitalized for further evaluation of their emergent condition. - New Patient This patient is new to me today: Yes Date on this admission: 08/23/17 - Critical Care Critical Care patient: Yes Total Critical Care Time (in minutes): 35 Critical Care Statement: The care of this patient involved high complexity decision making to prevent further life threatening deterioration of the patient 's condition and/or to evaluate & treat vital organ system(s) failure or risk of failure. Hospitalist Screening - Colonoscopy Questionnaire Colonoscopy Questionnaire: Colonoscopy Questionnaire - Patient: 50 - 75 years old and never had a screening colonoscopy: No History of colon or rectal polyps, or CA: No History of IBD, Crohn's disease or UC: No History of abdominal radiation therapy as a child: No - Relative: 1 with colon or rectal CA, or polyps at age 60 or younger: No Colon or rectal CA diagnosed at age 45 or younger: No Multiple relatives with colon or rectal CA: No - Outcome: Screening Result: Negative Screen
[2017-08-23] MEDS ORDERED: SODIUM CHLORIDE 1,000 ML IV SCH (04:00)
[2017-08-23 05:38] VITALS: BMI 25.5
[2017-08-23 07:08] LABS: CHLORIDE 105 mmol/L (98-107); POTASSIUM 3.9 mmol/L (3.5-5.1); SODIUM 136 mmol/L (136-145)
[2017-08-23 07:16] LABS: HDL CHOLESTEROL 13 mg/dL (40-60); LDL CHOLESTEROL (ONLY SJRH) 41 mg/dL (5-100)
[2017-08-23 07:26] LABS: CHOLESTEROL 57 mg/dL (50-200); TRIGLYCERIDES 102 mg/dL (35-160)
[2017-08-23 07:31] LABS: ALK PHOS 72 U/L (45-117); ANION GAP 10 (8-16); BLOOD UREA NITROGEN 30 mg/dL (7-18); CO2 21 mmol/L (21-32); CREATININE 0.9 mg/dL (0.7-1.3); GLUCOSE,RANDOM 106 mg/dL (74-106); MAGNESIUM 2.1 mg/dL (1.8-2.4); PHOSPHOROUS 3.1 mg/dL (2.5-4.9); SGOT/AST 162 U/L (15-37); SGPT/ALT 88 U/L (12-78); TOT PROT 7.3 g/dl (6.4-8.2)
--- NOTE | 2017-08-23 08:24 | EKG ---
Test Reason : Blood Pressure : / mmHG Vent. Rate : 106 BPM Atrial Rate : 106 BPM P-R Int : 144 ms QRS Dur : 092 ms QT Int : 372 ms P-R-T Axes : 058 051 -12 degrees QTc Int : 494 ms POOR DATA QUALITY, INTERPRETATION MAY BE ADVERSELY AFFECTED SINUS TACHYCARDIA ABNORMAL QRS-T ANGLE, CONSIDER PRIMARY T WAVE ABNORMALITY ABNORMAL ECG WHEN COMPARED WITH ECG OF 19-AUG-2017 10:07, NO SIGNIFICANT CHANGE WAS FOUND Confirmed by GORDO MONTES MD ([id number]) on 08/23/2017 8:24:13 AM Referred By: Confirmed By:GORDO MONTES MD
[2017-08-23 08:58] LABS: BASO % 0.6 % (0-2.0); EOS % 3.4 % (0-4.5); LYMPH % 27.8 % (8-40); MCH 34.3 pg (25.7-33.7); MCHC 34.3 g/dl (32.0-35.9); MEAN CELL VOLUME 99.7 fl (80-96); MEAN PLT VOLUME 9.3 fl (7.5-11.1); MONO % 16.8 % (3.8-10.2); NEUT % 51.4 % (42.8-82.8); PLATELET COUNT 178 K/MM3 (134-434); RDW 14.7 % (11.9-15.9)
[2017-08-23 09:04] LABS: HEMOGLOBIN 6.9 GM/dL (11.7-16.9)
[2017-08-23] MEDS ORDERED: PEG3350/SOD SULF,BICARB,CL/KCL 4,000 ML SOLN.RECON PO ONE ×3 (09:14→20:00)
--- NOTE | 2017-08-23 09:39 | PN ---
Physical Exam: SUBJECTIVE: Patient seen and examined oob to chair in ED. Left the hospital yesterday. Went home. Did not drink. Had bloody vomiting and black stools. Also had period of periumbilical pain which has resolved. OBJECTIVE: Vital Signs Period Temp Pulse Resp BP Sys/Cole Pulse Ox Last 24 Hr 98.4 F-99.7 F 94-108 18-18 84-105/38-62 100-100 GENERAL: The patient is awake, alert, and fully oriented, in no acute distress. LUNGS: CTA HEART: Regular rate and rhythm, S1, S2 ABDOMEN: Firm, nontender, nondistended EXTREMITIES: 2+ pulses, warm, well-perfused, no edema. NEUROLOGICAL: Cranial nerves II through XII grossly intact. Normal speech, steady gait SKIN: Warm, dry, normal turgor Laboratory Results - last 24 hr 08/23/17 08/23/17 08/23/17 01:45 01:45 01:45 WBC 6.4 RBC 1.92 L D Hgb 6.6 L* D Hct 19.4 L D MCV 101.1 H MCH 34.3 H MCHC 33.9 RDW 14.9 Plt Count 193 MPV 9.4 Neutrophils % 66.8 Lymphocytes % 14.2 D Monocytes % 15.4 H D Eosinophils % 3.1 Basophils % 0.5 PT with INR 14.60 H INR 1.29 H Sodium 135 L Potassium 3.7 Chloride 102 Carbon Dioxide 21 D Anion Gap 12 BUN 29 H D Creatinine 1.2 D Creat Clearance w eGFR > 60 Random Glucose 125 H D Lactic Acid Calcium 7.2 L Phosphorus Magnesium Total Bilirubin 0.7 D AST 185 H D ALT 99 H Alkaline Phosphatase 79 LD Total 196 Creatine Kinase 88 Troponin I 0.02 Total Protein 7.6 Albumin 1.9 L D Triglycerides Cholesterol Total LDL Cholesterol HDL Cholesterol Total Amylase 164 H Lipase 1464 H Stool Occult Blood Blood Type Antibody Screen Crossmatch 08/23/17 08/23/17 08/23/17 01:50 02:20 02:55 WBC RBC Hgb Hct MCV MCH MCHC RDW Plt Count MPV Neutrophils % Lymphocytes % Monocytes % Eosinophils % Basophils % PT with INR INR Sodium Potassium Chloride Carbon Dioxide Anion Gap BUN Creatinine Creat Clearance w eGFR Random Glucose Lactic Acid 3.1 H* Calcium Phosphorus Magnesium Total Bilirubin AST ALT Alkaline Phosphatase LD Total Creatine Kinase Troponin I Total Protein Albumin Triglycerides Cholesterol Total LDL Cholesterol HDL Cholesterol Total Amylase Lipase Stool Occult Blood Positive Blood Type O POSITIVE Antibody Screen Negative Crossmatch See Detail 08/23/17 08/23/17 08/23/17 05:50 06:29 06:29 WBC RBC Hgb Hct MCV MCH MCHC RDW Plt Count MPV Neutrophils % Lymphocytes % Monocytes % Eosinophils % Basophils % PT with INR INR Sodium 136 Potassium 3.9 Chloride 105 Carbon Dioxide 21 Anion Gap 10 BUN 30 H Creatinine 0.9 D Creat Clearance w eGFR > 60 Random Glucose 106 Lactic Acid 1.1 Calcium 7.0 L Phosphorus 3.1 Magnesium 2.1 Total Bilirubin 1.0 D AST 162 H ALT 88 H Alkaline Phosphatase 72 LD Total Creatine Kinase Troponin I Total Protein 7.3 Albumin 2.0 L Triglycerides 102 D Cholesterol 57 D Total LDL Cholesterol 41 D HDL Cholesterol 13 L D Total Amylase Lipase Stool Occult Blood Blood Type Antibody Screen Crossmatch Current Medications Generic Name Dose Route Start Last Admin Trade Name Freq PRN Reason Stop Dose Admin Chlorhexidine Gluconate 1 applic 08/23/17 22:00 Hibiclens For Decolonization - TP HS [facility] Furosemide 40 mg 08/23/17 09:23 Lasix Injection - IVPUSH 08/23/17 09:24 ONCE ONE Sodium Chloride 1,000 mls @ 125 mls/hr 08/23/17 04:00 08/23/17 04:05 Normal Saline - IV 125 mls/hr ASDIR [facility] Administration Mupirocin 1 applic 08/23/17 10:00 Bactroban Ointment (For Decolonization) - NS 08/28/17 09:59 BID [facility] Pantoprazole Sodium 40 mg 08/23/17 10:00 Protonix Iv IVPUSH BID [facility] ASSESSMENT/PLAN 47 year-old male with a PMH significant for alcohol abuse and HIV. Admitted 08/19 -08/21 for GI bleed. EGD was unremarkable and Hgb 9.9 on 08/21. Returned on 08/23 with Hgb 6.6. GI bleed --patient reports hematemesis and melena over past 12 hours --mildly hypotensive 98/59 --1U PRBC given in ED, Hgb 6.6-->6.9 --transfuse 2 more units now, Lasix 40mg IVP in between --Protonix IVP BID --2 large bore IVs --IV fluids --discussed with Dr. Bautista, EGD and colonoscopy tomorrow if patient remains hemodynamically stable Elevated lipase --lipase 1464 --IV fluids Transaminitis Ascites --US abdomen: hepatomegaly, diffuse fatty infiltration --08/19 CTAP: small amount of ascites throughout abdomen and pelvis Hyperproteinemia Macrocytic anemia --A/G ratio >5-->7 --MCV 101.1 --serum folate wnl; Vit B12 wnl; thyroid panel wnl; retic count 1.94; haptoglobin wnl; LDH wnl; AFP wnl --heme consult requested Alcohol abuse --last drink >10 days ago --monitor closely for s/s of withdrawal HIV --seen and evaluated by Dr. Cancino on 08/20; observe off antibiotics; no HIV meds for now FEN Fluids: NS @ 125mL/hr Electrolytes: replete as indicated Nutrition: clears; Go Lytely prep DVT prophylaxis: mechanical only due to bleeding issue; SCDs, oob, ambulation Dispo: requires ICU level care. Full code. Visit type - Emergency Visit Emergency Visit: Yes ED Registration Date: 08/23/17 Care time: The patient presented to the Emergency Department on the above date and was hospitalized for further evaluation of their emergent condition. - New Patient This patient is new to me today: Yes Date on this admission: 08/23/17 - Critical Care Critical Care patient: Yes Total Critical Care Time (in minutes): 60 Critical Care Statement: The care of this patient involved high complexity decision making to prevent further life threatening deterioration of the patient 's condition and/or to evaluate & treat vital organ system(s) failure or risk of failure.
[2017-08-23] MEDS ORDERED: MUPIROCIN 2% TOPICAL OINTMENT FOR DECOLONIZATION NS SCH ×2 (10:00→22:00)
[2017-08-23] MEDS ORDERED: PANTOPRAZOLE SODIUM 40 MG VIAL IVPUSH SCH ×2 (10:00→22:00)
--- NOTE | 2017-08-23 11:03 | CON.GI ---
Consult Consult Specialty:: GI Reason for Consultation:: GI bleeding - History of Present Illness History of Present Illness: Chart reviewed. Known to GI service from recent hospitalization. 47M ETOH abuse, HIV, recently hospitalized for hematemesis and melena. EGD earlier this week revealed no intraluminal lesions, or mucoasal abnormalities and no stigmata of advanced liver disease. Readmitted with the same complaints of hematemesis and melena. Also reports small amount of BRBPR. Hgb 6.6 g/dl, 86/48, 107, 98.6. Lipase 1464, AST 2x ALT, normal bili and ALP. BUN 30, Cr 0. 9. AAO x 3. No overt neurological deficits. No witnessed bleeding in ED. s/p 1 u PRBC. - History Source History Provided By: Patient, Medical Record Limitations to Obtaining History: No Limitations - Past Medical History Infectious Disease: Yes: HIV (On ART) - Alcohol/Substance Use Hx Alcohol Use: Yes (6-7 BEERs daily, more on weekends) History of Substance Use: reports: None - Smoking History Smoking history: Current some day smoker Have you smoked in the past 12 months: Yes Aproximately how many cigarettes per day: 4 - Social History Usual Living Arrangement: Alone ADL: Independent Occupation: Unemployed History of Recent Travel: No Home Medications - Allergies Allergies/Adverse Reactions: Allergies Allergy/AdvReac Type Severity Reaction Status Date / Time No Known Allergies Allergy Verified 08/23/17 01:34 - Home Medications Home Medications: Ambulatory Orders Emtricitab/Rilpivirine/Tenofov [Complera Tablet] 1 each PO QID 01/31/12 Furosemide [Lasix] 40 mg PO DAILY #30 tablet 08/21/17 Spironolactone [Aldactone] 100 mg PO DAILY #30 tablet 08/21/17 Family Disease History - Family Disease History Family Disease History: Other: Father (: unknown causes), Mother (: unknown causes), Son (alive: healthy) Review of Systems Findings/Remarks: as per HPI, H&P Physical Exam-GI Vital Signs: Vital Signs Temperature 98.4 F 08/23/17 08:00 Pulse Rate 99 H 08/23/17 08:00 Respiratory Rate 18 08/23/17 08:03 Blood Pressure 99/60 08/23/17 08:00 O2 Sat by Pulse Oximetry (%) 100 08/23/17 08:03 Constitutional: Yes: Anxious Eyes: Yes: Conjunctiva Clear HENT: Yes: Atraumatic Neck: Yes: Supple Cardiovascular: Yes: Regular Rate and Rhythm, Tachycardia Respiratory: Yes: Regular Gastrointestinal Inspection: No: Ascites, Distention ...Auscultate: Yes: Normoactive Bowel Sounds ...Palpate: Yes: Soft. No: Firm/Rigid, Guarding, Mass, Tenderness ...Rectal Exam: Yes: Deferred Neurological: Yes: Alert, Oriented. No: Asterixis, Confusion, Lethargy, Tremors Labs: CBC, BMP 08/23/17 08:33 08/23/17 06:29 INR, PTT INR 1.29 (0.82-1.09) H 08/23/17 01:45 CBCD WBC 8.0 K/mm3 (4.0-10.0) 08/23/17 08:33 RBC 2.00 M/mm3 (4.00-5.60) L 08/23/17 08:33 Hgb 6.9 GM/dL (11.7-16.9) L* 08/23/17 08:33 Hct 20.0 % (35.4-49) L 08/23/17 08:33 MCV 99.7 fl (80-96) H 08/23/17 08:33 MCHC 34.3 g/dl (32.0-35.9) 08/23/17 08:33 RDW 14.7 % (11.9-15.9) 08/23/17 08:33 Plt Count 178 K/MM3 (134-434) 08/23/17 08:33 MPV 9.3 fl (7.5-11.1) 08/23/17 08:33 CMP Sodium 136 mmol/L (136-145) 08/23/17 06:29 Potassium 3.9 mmol/L (3.5-5.1) 08/23/17 06:29 Chloride 105 mmol/L (98-107) 08/23/17 06:29 Carbon Dioxide 21 mmol/L (21-32) 08/23/17 06:29 Anion Gap 10 (8-16) 08/23/17 06:29 BUN 30 mg/dL (7-18) H 08/23/17 06:29 Creatinine 0.9 mg/dL (0.7-1.3) D 08/23/17 06:29 Creat Clearance w eGFR > 60 (>60) 08/23/17 06:29 Calcium 7.0 mg/dL (8.5-10.1) L 08/23/17 06:29 Total Bilirubin 1.0 mg/dL (0.2-1.0) D 08/23/17 06:29 AST 162 U/L (15-37) H 08/23/17 06:29 ALT 88 U/L (12-78) H 08/23/17 06:29 Alkaline Phosphatase 72 U/L (45-117) 08/23/17 06:29 Total Protein 7.3 g/dl (6.4-8.2) 08/23/17 06:29 Albumin 2.0 g/dl (3.4-5.0) L 08/23/17 06:29 Problem List - Problems (1) Pancreatitis Code(s): K85.90 - ACUTE PANCREATITIS WITHOUT NECROSIS OR INFECTION, UNSP (2) Dehydration Code(s): E86.0 - DEHYDRATION (3) Anemia Code(s): D64.9 - ANEMIA, UNSPECIFIED (4) GIB (gastrointestinal bleeding) Code(s): K92.2 - GASTROINTESTINAL HEMORRHAGE, UNSPECIFIED (5) HIV (human immunodeficiency virus infection) Code(s): Z21 - ASYMPTOMATIC HUMAN IMMUNODEFICIENCY VIRUS INFECTION STATUS Assessment/Plan Suspect continuous alcohol abuse. No overt signs of liver cirrhosis. Keep Hgb above 7g/dl. Aggressive IV hydration, NPO, Antiemetic and pain management PRN NPO Colonoscopy and repeat EGD ( ?? dieulafoy lesion as the exam was normal 3 days ago). Discussed with the patient Alcohol level CBC, CMP daily. Agree with hematology eval. SPEP Repeat CBC stat. Doubt 6.9 g/dl after 1 u PRBC w/o stigmata of ongoing bleeding
[2017-08-23] MEDS ORDERED: FUROSEMIDE 40 MG/4 ML INJECTABLE VIAL IVPUSH ONE (11:30)
[2017-08-23] MEDS ORDERED: PANTOPRAZOLE SODIUM 40 MG VIAL ONE (12:02)
--- NOTE | 2017-08-23 13:25 | PN ---
Progress Note (short form) - Note Progress Note: Vital Signs Temp 98 F 08/23/17 12:07 Pulse 88 08/23/17 12:07 Resp 20 08/23/17 12:07 BP 92/61 08/23/17 12:07 Pulse Ox 98 08/23/17 12:07 Intake & Output 08/22/17 08/23/17 08/23/17 23:59 11:59 23:59 Weight 168 lb Other: Height 5 ft 8 in Body Mass Index (BMI) 25.5 Problem List - Problems (1) Pancreatitis Code(s): K85.90 - ACUTE PANCREATITIS WITHOUT NECROSIS OR INFECTION, UNSP (2) Dehydration Code(s): E86.0 - DEHYDRATION (3) Anemia Code(s): D64.9 - ANEMIA, UNSPECIFIED (4) GIB (gastrointestinal bleeding) Code(s): K92.2 - GASTROINTESTINAL HEMORRHAGE, UNSPECIFIED (5) HIV (human immunodeficiency virus infection) Code(s): Z21 - ASYMPTOMATIC HUMAN IMMUNODEFICIENCY VIRUS INFECTION STATUS
--- NOTE | 2017-08-23 13:34 | CONSULT ---
Consult Consult Specialty:: Hematology - History of Present Illness History of Present Illness: 47 M with Pmhx of ETOH Abuse, and HIV (CD4 272) who was recently admitted on for hematemsis. EGD was done and EGD showed no abnormalities. A CTAP done on 08/19 showed a small amount of ascites. He presents today after drinking a soda, after which he noticed a large bloody BM, Pt. was also recently started in HAART. Notes he had large volume hematemsis X1 earlier. No fevers or chills. Hematology consulted for elevated Protein gap. Pt seen and examined. - History Source History Provided By: Patient, Medical Record - Past Medical History Infectious Disease: Yes: HIV (On ART) - Alcohol/Substance Use Hx Alcohol Use: Yes (6-7 BEERs daily, more on weekends) History of Substance Use: reports: None - Smoking History Smoking history: Current some day smoker Have you smoked in the past 12 months: Yes Aproximately how many cigarettes per day: 4 - Social History Usual Living Arrangement: Alone ADL: Independent Occupation: Unemployed History of Recent Travel: No Home Medications - Allergies Allergies/Adverse Reactions: Allergies Allergy/AdvReac Type Severity Reaction Status Date / Time No Known Allergies Allergy Verified 08/23/17 01:34 - Home Medications Home Medications: Ambulatory Orders Emtricitab/Rilpivirine/Tenofov [Complera Tablet] 1 each PO QID 01/31/12 Furosemide [Lasix] 40 mg PO DAILY #30 tablet 08/21/17 Spironolactone [Aldactone] 100 mg PO DAILY #30 tablet 08/21/17 Family Disease History - Family Disease History Family Disease History: Other: Father (: unknown causes), Mother (: unknown causes), Son (alive: healthy) Review of Systems - Review of Systems Constitutional: reports: Unintentional Wgt. Loss, Weakness. denies: Loss of Appetite HENT: denies: Difficult Swallowing Neck: denies: Decreased ROM, Lumps Cardiovascular: denies: Chest Pain, Edema Respiratory: denies: Cough, Exercise Intolerance Gastrointestinal: reports: Rectal Bleeding, Vomiting Blood Physical Exam Vital Signs: Vital Signs Temperature 98 F 08/23/17 12:07 Pulse Rate 88 08/23/17 12:07 Respiratory Rate 20 08/23/17 12:07 Blood Pressure 92/61 08/23/17 12:07 O2 Sat by Pulse Oximetry (%) 98 08/23/17 12:07 Constitutional: Yes: No Distress, Calm Eyes: Yes: Conjunctiva Clear HENT: Yes: Atraumatic, Normocephalic Neck: Yes: Supple Cardiovascular: Yes: Regular Rate and Rhythm Respiratory: Yes: Regular, CTA Bilaterally Gastrointestinal: Yes: Normal Bowel Sounds, Soft Edema: No Neurological: Yes: Alert, Oriented Psychiatric: Yes: Alert, Oriented Labs: CBC, BMP 08/23/17 08:33 08/23/17 06:29 Imaging - Results Cat Scan: Report Reviewed Ultrasound: Report Reviewed Assessment/Plan Elevated Total Protein: for MM w/u, suspect reactive due to HIV, but will await complete MM panel. Blood loss anemia: FOBT + Supportive transfusions GI f/u ?Alcohol induced pancreatitis Supportive care HIV Rx per ID close monitoring.
[2017-08-23] MEDS ORDERED: FUROSEMIDE 40 MG/4 ML INJECTABLE VIAL ONE (13:53)
[2017-08-23] MEDS ORDERED: BISACODYL 5 MG TABLET.DR (FP) PO ONE ×2 (15:00→18:00)
--- NOTE | 2017-08-23 15:04 | CONSULT ---
Consult Consult Specialty:: PULM/CCM Referred by:: ER Reason for Consultation:: GI bleed - History of Present Illness Chief Complaint: vomiting blood History of Present Illness: 47 M, ETOH dependence, Esophagitis, HIV on HAART, recent admission for GI bleed and found to have antral and body gastritis and duodenitits ( 2nd part of duodenum), H/Pylori was (-). Reports last ETOH was almost 2 weeks ago. Patient reports having a drank a soda and after he had large bright red bloody bowel movement. Also reports mid abdominal abdominal pain above umbilicus. No CP or SOB. Hemodynamics are stable, he has received 1 unit of blood, and there is no active bleeding. He has been seen by GI therapeutic consultant as well. - History Source History Provided By: Patient Limitations to Obtaining History: Poor Historian - Past Medical History Infectious Disease: Yes: HIV (On ART) - Alcohol/Substance Use Hx Alcohol Use: Yes (6-7 BEERs daily, more on weekends) History of Substance Use: reports: None - Smoking History Smoking history: Current some day smoker Have you smoked in the past 12 months: Yes Aproximately how many cigarettes per day: 4 - Social History Usual Living Arrangement: Alone ADL: Independent Occupation: Unemployed History of Recent Travel: No Home Medications - Allergies Allergies/Adverse Reactions: Allergies Allergy/AdvReac Type Severity Reaction Status Date / Time No Known Allergies Allergy Verified 08/23/17 01:34 - Home Medications Home Medications: Ambulatory Orders Emtricitab/Rilpivirine/Tenofov [Complera Tablet] 1 each PO QID 01/31/12 Furosemide [Lasix] 40 mg PO DAILY #30 tablet 08/21/17 Spironolactone [Aldactone] 100 mg PO DAILY #30 tablet 08/21/17 Family Disease History - Family Disease History Family Disease History: Other: Father (: unknown causes), Mother (: unknown causes), Son (alive: healthy) Review of Systems - Review of Systems Constitutional: reports: Malaise. denies: Chills, Fever, Night Sweats, Unintentional Wgt. Loss Eyes: reports: No Symptoms HENT: reports: No Symptoms Neck: reports: No Symptoms Cardiovascular: reports: No Symptoms Respiratory: reports: No Symptoms Gastrointestinal: reports: Abdominal Pain, Rectal Bleeding, Vomiting, Vomiting Blood Genitourinary: reports: No Symptoms Breasts: reports: No Symptoms Reported Musculoskeletal: reports: No Symptoms Integumentary: reports: No Symptoms Neurological: reports: No Symptoms Endocrine: reports: No Symptoms Hematology/Lymphatic: reports: No Symptoms Psychiatric: reports: No Symptoms Physical Exam Vital Signs: Vital Signs Temperature 98.6 F 08/23/17 14:05 Pulse Rate 83 08/23/17 14:05 Respiratory Rate 18 08/23/17 14:05 Blood Pressure 112/77 08/23/17 14:05 O2 Sat by Pulse Oximetry (%) 100 08/23/17 14:05 Constitutional: Yes: No Distress Eyes: Yes: Conjunctiva Clear, EOM Intact HENT: Yes: Atraumatic, Normocephalic Neck: Yes: Supple, Trachea Midline Cardiovascular: Yes: Regular Rate and Rhythm Respiratory: Yes: Regular, CTA Bilaterally Gastrointestinal: Yes: Normal Bowel Sounds, Soft. No: Ascites, Palpable Mass, Pulsatile Mass Breast(s): Yes: WNL Musculoskeletal: Yes: WNL Extremities: Yes: WNL Edema: No Peripheral Pulses WNL: Yes Integumentary: Yes: WNL Neurological: Yes: Alert, Oriented ...Motor Strength: WNL Psychiatric: Yes: WNL, Alert, Oriented Labs: CBC, BMP 08/23/17 06:29 Imaging - Results Chest X-ray: Report Reviewed, Image Reviewed Problem List - Problems (1) Dehydration Code(s): E86.0 - DEHYDRATION (2) Pancreatitis Code(s): K85.90 - ACUTE PANCREATITIS WITHOUT NECROSIS OR INFECTION, UNSP (3) Anemia Code(s): D64.9 - ANEMIA, UNSPECIFIED (4) GIB (gastrointestinal bleeding) Code(s): K92.2 - GASTROINTESTINAL HEMORRHAGE, UNSPECIFIED (5) HIV (human immunodeficiency virus infection) Code(s): Z21 - ASYMPTOMATIC HUMAN IMMUNODEFICIENCY VIRUS INFECTION STATUS Assessment/Plan Transfuse additional pRBCs Serial CBC O2 as needed IVF: Lactated Ringers due to Pancreatitis GI evaluation has been completed IV PPI As his hemodynamics are currently stable and the patient has been asymptomatic while ambulating in the ER, he can be monitored on the medical floor. Please call for change in clinical status or questions. Dr Rogel
[2017-08-23 15:17] LABS: BASO % 0.8 % (0-2.0); EOS % 4.5 % (0-4.5); HEMATOCRIT 22.4 % (35.4-49); HEMOGLOBIN 7.9 GM/dL (11.7-16.9); LYMPH % 27.5 % (8-40); MEAN CELL VOLUME 97.1 fl (80-96); MEAN PLT VOLUME 9.8 fl (7.5-11.1); MONO % 15.3 % (3.8-10.2); NEUT % 51.9 % (42.8-82.8); PLATELET COUNT 176 K/MM3 (134-434); RBC 2.31 M/mm3 (4.00-5.60); RDW 16.3 % (11.9-15.9); WHITE BLOOD COUNT 7.7 K/mm3 (4.0-10.0)
--- NOTE | 2017-08-23 16:40 | PN ---
Progress Note (short form) - Note Progress Note: Vital Signs Temp 98 F 08/23/17 12:07 Pulse 88 08/23/17 12:07 Resp 20 08/23/17 12:07 BP 92/61 08/23/17 12:07 Pulse Ox 98 08/23/17 12:07 Intake & Output 08/22/17 08/23/17 08/23/17 23:59 11:59 23:59 Weight 168 lb Other: Height 5 ft 8 in Body Mass Index (BMI) 25.5 CBCD WBC 7.7 K/mm3 (4.0-10.0) 08/23/17 14:40 RBC 2.31 M/mm3 (4.00-5.60) L 08/23/17 14:40 Hgb 7.9 GM/dL (11.7-16.9) L D 08/23/17 14:40 Hct 22.4 % (35.4-49) L 08/23/17 14:40 MCV 97.1 fl (80-96) H 08/23/17 14:40 MCHC 35.0 g/dl (32.0-35.9) 08/23/17 14:40 RDW 16.3 % (11.9-15.9) H D 08/23/17 14:40 Plt Count 176 K/MM3 (134-434) 08/23/17 14:40 MPV 9.8 fl (7.5-11.1) 08/23/17 14:40 CMP Sodium 136 mmol/L (136-145) 08/23/17 06:29 Potassium 3.9 mmol/L (3.5-5.1) 08/23/17 06:29 Chloride 105 mmol/L (98-107) 08/23/17 06:29 Carbon Dioxide 21 mmol/L (21-32) 08/23/17 06:29 Anion Gap 10 (8-16) 08/23/17 06:29 BUN 30 mg/dL (7-18) H 08/23/17 06:29 Creatinine 0.9 mg/dL (0.7-1.3) D 08/23/17 06:29 Creat Clearance w eGFR > 60 (>60) 08/23/17 06:29 Calcium 7.0 mg/dL (8.5-10.1) L 08/23/17 06:29 Total Bilirubin 1.0 mg/dL (0.2-1.0) D 08/23/17 06:29 AST 162 U/L (15-37) H 08/23/17 06:29 ALT 88 U/L (12-78) H 08/23/17 06:29 Alkaline Phosphatase 72 U/L (45-117) 08/23/17 06:29 Total Protein 7.3 g/dl (6.4-8.2) 08/23/17 06:29 Albumin 2.0 g/dl (3.4-5.0) L 08/23/17 06:29 Problem List - Problems (1) Pancreatitis Code(s): K85.90 - ACUTE PANCREATITIS WITHOUT NECROSIS OR INFECTION, UNSP (2) Dehydration Code(s): E86.0 - DEHYDRATION (3) Anemia Code(s): D64.9 - ANEMIA, UNSPECIFIED (4) GIB (gastrointestinal bleeding) Code(s): K92.2 - GASTROINTESTINAL HEMORRHAGE, UNSPECIFIED (5) HIV (human immunodeficiency virus infection) Code(s): Z21 - ASYMPTOMATIC HUMAN IMMUNODEFICIENCY VIRUS INFECTION STATUS
[2017-08-23] MEDS ORDERED: FLU VACCINE QUAD 60 MCG/0.5 ML (MDV 17-18) IM ONE (18:15)
[2017-08-23] MEDS ORDERED: PNEUMOC 13-VAL CONJ-DIP CRM/PF 0.5 ML DISP.SYRIN IM ONE (18:22)
[2017-08-23] MEDS: SODIUM CHLORIDE 1,000 ML IV SCH ×2 (20:40→20:54)
[2017-08-23] MEDS ORDERED: CHLORHEXIDINE GLUCONATE 4% CLEANSER FOR DECOLONIZATION TP SCH ×2 (22:00)
[2017-08-24 07:40] LABS: BASO % 1.1 % (0-2.0); EOS % 7.7 % (0-4.5); HEMATOCRIT 24.2 % (35.4-49); HEMOGLOBIN 8.6 GM/dL (11.7-16.9); MCH 33.3 pg (25.7-33.7); MCHC 35.7 g/dl (32.0-35.9); MEAN CELL VOLUME 93.2 fl (80-96); MEAN PLT VOLUME 9.3 fl (7.5-11.1); MONO % 13.9 % (3.8-10.2); NEUT % 55.3 % (42.8-82.8); PLATELET COUNT 202 K/MM3 (134-434); RBC 2.59 M/mm3 (4.00-5.60); RDW 17.9 % (11.9-15.9); WHITE BLOOD COUNT 7.1 K/mm3 (4.0-10.0)
[2017-08-24] MEDS ORDERED: LIDOCAINE HCL/PF 2% SDV 5ML VIAL ONE (08:42)
[2017-08-24] MEDS ORDERED: PROPOFOL 20 ML ONE ×3 (08:42)
[2017-08-24 09:19] LABS: BLOOD UREA NITROGEN 11 mg/dl (7-18); GLUCOSE,RANDOM 79 mg/dl (74-106)
[2017-08-24 09:20] LABS: ANION GAP 10 (8-16); CALCIUM 7.5 mg/dl (8.4-10.2); CHLORIDE 105 mmol/L (98-107); CO2 22 mmol/L (22-28); CREATININE 0.7 mg/dl (0.6-1.3); POTASSIUM 3.7 mmol/L (3.5-5.1); SODIUM 137 mmol/L (136-145)
[2017-08-24 09:21] LABS: ALBUMIN 2.2 g/dl (3.5-5.0); ALK PHOS 74 U/L (32-92); BILIRUBIN,TOTAL 1.1 mg/dl (0.2-1.0); SGOT/AST 196 U/L (10-42); SGPT/ALT 99 U/L (10-40)
--- NOTE | 2017-08-24 09:55 | PROC ---
Endoscopy Procedure Endoscopy procedure completed. Please see scanned procedure report. Push enteroscopy to jejunum (130 cm) revealed a possible non-bleeding dieulafoy lesion in the cardia (see pics). It was clipped and tattooed, otherwise normal exam. No biopsies taken - see prior EGD Colonoscopy to terminal ileum revealed few small daverticuli in the right colon and small, uncomplicated internal hemorrhoids, otherwise normal exam. resume diet, PPI, observe
[2017-08-24] MEDS ORDERED: FLU VACCINE QUAD 60 MCG/0.5 ML (MDV 17-18) IM ONE (10:00)
[2017-08-24] MEDS ORDERED: PNEUMOC 13-VAL CONJ-DIP CRM/PF 0.5 ML DISP.SYRIN IM ONE (10:00)
[2017-08-24] MEDS: PANTOPRAZOLE 40 MG TABLET (FP) PO SCH (14:19)
--- NOTE | 2017-08-24 14:28 | PN ---
Progress Note (short form) - Note Progress Note: Pt seen and examined. s/p GI procedures. He feels well. He denies further bleeding. O/E: Constitutional: Yes: No Distress, Calm Eyes: Yes: Conjunctiva Clear HENT: Yes: Atraumatic, Normocephalic Neck: Yes: Supple Cardiovascular: Yes: Regular Rate and Rhythm Respiratory: Yes: Regular, CTA Bilaterally Gastrointestinal: Yes: Normal Bowel Sounds, Soft Edema: No Neurological: Yes: Alert, Oriented Psychiatric: Yes: Alert, Oriented Last Vital Signs Temp Pulse Resp BP Pulse Ox 98.4 F 80 17 128/75 99 08/24/17 11:05 08/24/17 11:05 08/24/17 11:05 08/24/17 11:05 08/24/17 10:18 CBC, BMP 08/24/17 07:15 08/24/17 07:15 Current Medications Generic Name Dose Route Start Last Admin Trade Name Freq PRN Reason Stop Dose Admin Sodium Chloride 1,000 mls @ 125 mls/hr 08/23/17 19:49 08/23/17 20:40 Normal Saline - IV Not Given ASDIR CHIQUI Pantoprazole Sodium 40 mg 08/24/17 10:00 Protonix - PO DAILY CHIQUI Elevated Total Protein: await w/u suspect reactive due to HIV, but will await complete MM panel. if DC'd, MUST follow-up as an OP Blood loss anemia: presently crit stable. FOBT + GI f/u noted Supportive prbcs as needed Elevated LFTs: GI f/u HepB core + ?Alcohol induced pancreatitis Supportive care HIV Rx per ID
--- NOTE | 2017-08-24 15:34 | PN ---
Physical Exam: SUBJECTIVE: Patient seen and examined. Feels well. "Feels good to be sober." No further bleeding episodes, no melena. OBJECTIVE: Vital Signs Period Temp Pulse Resp BP Sys/Cole Pulse Ox Last 24 Hr 97.7 F-99.1 F 74-91 14-22 96-128/64-79 99-100 GENERAL: The patient is awake, alert, and fully oriented, in no acute distress. LUNGS: CTA HEART: Regular rate and rhythm, S1, S2 ABDOMEN: Firm, nontender, nondistended EXTREMITIES: 2+ pulses, warm, well-perfused, no edema. NEUROLOGICAL: Cranial nerves II through XII grossly intact. Normal speech, steady gait SKIN: Warm, dry, normal turgor Laboratory Results - last 24 hr 08/23/17 08/24/17 08/24/17 01:50 07:15 07:15 WBC 7.1 RBC 2.59 L Hgb 8.6 L Hct 24.2 L MCV 93.2 MCH 33.3 MCHC 35.7 RDW 17.9 H Plt Count 202 MPV 9.3 Neutrophils % 55.3 Lymphocytes % 22.0 Monocytes % 13.9 H Eosinophils % 7.7 H Basophils % 1.1 Sodium 137 Potassium 3.7 Chloride 105 Carbon Dioxide 22 Anion Gap 10 BUN 11 Creatinine 0.7 Creat Clearance w eGFR > 60 Random Glucose 79 Calcium 7.5 L Magnesium 2.0 Total Bilirubin 1.1 H AST 196 H ALT 99 H Alkaline Phosphatase 74 Total Protein 8.0 Albumin 2.2 L Blood Type O POSITIVE Antibody Screen Negative Crossmatch See Detail Active Medications Generic Name Dose Route Start Last Admin Trade Name Freq PRN Reason Stop Dose Admin Sodium Chloride 1,000 mls @ 125 mls/hr 08/23/17 19:49 08/23/17 20:40 Normal Saline - IV Not Given ASDIR CHIQUI Pantoprazole Sodium 40 mg 08/24/17 10:00 08/24/17 14:19 Protonix - PO 40 mg DAILY CHIQUI Administration ASSESSMENT/PLAN 47 year-old male with a PMH significant for alcohol abuse and HIV. Admitted 08/19 -08/21 for GI bleed. EGD was unremarkable and Hgb 9.9 on 08/21. Returned on 08/23 with Hgb 6.6. GI bleed likely secondary to Dieulafoy lesion, resolved Acute blood loss anemia, resolved --EGD/push eteroscopy and colonoscopy today: Dieulafoy lesion (clipped), diverticulosis --Hgb 6.6-->8.6 after 3U PRBC --hemodynamically stable --continue to observe for bleeding Elevated lipase --lipase 1464 --IV fluids Transaminitis Ascites --US abdomen: hepatomegaly, diffuse fatty infiltration --08/19 CTAP: small amount of ascites throughout abdomen and pelvis Hyperproteinemia --A/G ratio >5-->7 --per heme, possibly reactive to HIV, but pending complete MM panel --will definitely need outpatient followup --transfuse <7 Alcohol abuse --last drink >10 days ago --monitor closely for s/s of withdrawal HIV --seen and evaluated by Dr. Cancino on 08/20; observe off antibiotics; no HIV meds for now FEN Fluids: NS @ 125mL/hr Electrolytes: replete as indicated Nutrition: regular diet DVT prophylaxis: mechanical only due to bleeding issue; SCDs, oob, ambulation Dispo: requires continued inpatient care. Full code. Visit type - Emergency Visit Emergency Visit: Yes ED Registration Date: 08/23/17 Care time: The patient presented to the Emergency Department on the above date and was hospitalized for further evaluation of their emergent condition. - New Patient This patient is new to me today: No - Critical Care Critical Care patient: No
[2017-08-24] MEDS: SODIUM CHLORIDE 1,000 ML IV SCH (20:00)
[2017-08-25 08:41] LABS: ALBUMIN 2.4 g/dl (3.4-5.0); ALK PHOS 94 U/L (45-117); ANION GAP 6 (8-16); BILIRUBIN,TOTAL 0.9 mg/dL (0.2-1.0); BLOOD UREA NITROGEN 9 mg/dL (7-18); CHLORIDE 105 mmol/L (98-107); CO2 25 mmol/L (21-32); GLUCOSE,RANDOM 89 mg/dL (74-106); POTASSIUM 3.7 mmol/L (3.5-5.1); SGOT/AST 231 U/L (15-37); SGPT/ALT 122 U/L (12-78); SODIUM 136 mmol/L (136-145); TOT PROT 8.6 g/dl (6.4-8.2)
[2017-08-25] MEDS: PANTOPRAZOLE 40 MG TABLET (FP) PO SCH (10:41)
[2017-08-25 11:41] VITALS: BP 123/72; PULSE 74; TEMP 98
[2017-08-25 12:17] LABS: HEMATOCRIT 24.5 % (35.4-49); HEMOGLOBIN 8.4 GM/dL (11.7-16.9); MCH 33.2 pg (25.7-33.7); MCHC 34.5 g/dl (32.0-35.9); MEAN CELL VOLUME 96.3 fl (80-96); MEAN PLT VOLUME 8.6 fl (7.5-11.1); PLATELET COUNT 265 K/MM3 (134-434); RBC 2.54 M/mm3 (4.00-5.60); RDW 17.6 % (11.9-15.9); WHITE BLOOD COUNT 5.9 K/mm3 (4.0-10.0)
--- NOTE | 2017-08-25 14:16 | DS ---
Physical Exam: SUBJECTIVE: Patient seen and examined OBJECTIVE: Vital Signs Period Temp Pulse Resp BP Sys/Cole Pulse Ox Last 24 Hr 98.0 F-99.2 F 69-91 16-20 109-134/60-80 99-100 PHYSICAL EXAM GENERAL: The patient is awake, alert, and fully oriented, in no acute distress. HEAD: Normal with no signs of trauma. EYES: PERRL, extraocular movements intact, sclera anicteric, conjunctiva clear. ENT: Ears normal, nares patent, oropharynx clear without exudates, moist mucous membranes. NECK: Trachea midline, full range of motion, supple. LUNGS: Breath sounds equal, clear to auscultation bilaterally, no wheezes, no crackles, no accessory muscle use. HEART: Regular rate and rhythm, S1, S2 without murmur, rub or gallop. ABDOMEN: Soft, nontender, nondistended, normoactive bowel sounds, no guarding, no rebound, no hepatosplenomegaly, no masses. EXTREMITIES: 2+ pulses, warm, well-perfused, no edema. NEUROLOGICAL: Cranial nerves II through XII grossly intact. Normal speech, gait not observed. PSYCH: Normal mood, normal affect. SKIN: Warm, dry, normal turgor, no rashes or lesions noted. LABS Laboratory Results - last 24 hr 08/25/17 08/25/17 06:45 12:00 WBC 5.9 RBC 2.54 L Hgb 8.4 L Hct 24.5 L MCV 96.3 H MCH 33.2 MCHC 34.5 RDW 17.6 H Plt Count 265 D MPV 8.6 Sodium 136 Potassium 3.7 Chloride 105 Carbon Dioxide 25 Anion Gap 6 L BUN 9 D Creatinine 1.0 Creat Clearance w eGFR > 60 Random Glucose 89 Calcium 8.0 L Total Bilirubin 0.9 AST 231 H D ALT 122 H D Alkaline Phosphatase 94 D Total Protein 8.6 H Albumin 2.4 L HOSPITAL COURSE: Date of Admission:08/23/17 Date of Discharge: 08/25/17 Minutes to complete discharge: 35 Discharge Summary Reason For Visit: HEMATEMESIS, HIV, ETOH ABUSE Current Active Problems Dehydration (Acute) GIB (gastrointestinal bleeding) (Acute) Pancreatitis (Acute) Condition: Improved - Instructions Diet, Activity, Other Instructions: A prescription has been sent to your pharmacy for protonix. Take this medication as directed. It is important you follow up with two providers: 1. Dr. Bryson: she will tell you the results of your blood tests; 2. [facility]: make an appointment, you need to go back on your anti-viral medications. YOU MUST NOT DRINK ALCOHOL. Return to the emergency department for any new or worsening symptoms. Referrals: Laura Costa MD [Staff Physician] - 1 Week Stevie Cancino MD [Staff Physician] - 1 Week Disposition: HOME - Home Medications Comprehensive Discharge Medication List: Ambulatory Orders Furosemide [Lasix] 40 mg PO DAILY #30 tablet 08/21/17 Spironolactone [Aldactone] 100 mg PO DAILY #30 tablet 08/21/17 Pantoprazole Sodium [Protonix -] 40 mg PO DAILY #30 tablet.ec 08/25/17 This patient is new to me today: No Emergency Visit: Yes ED Registration Date: 08/23/17 Care time: The patient presented to the Emergency Department on the above date and was hospitalized for further evaluation of their emergent condition. Critical Care patient: No - Discharge Referral Referred to [facility] No
[2017-08-26 06:37] LABS: FREE KAPPA,SERUM 234.7 mg/L (3.3-19.4)
== END 2017-08-25 14:25 | disposition home or self-care (01) | DRG 241 ==
LOC: JER 01:16 → JERBED 03:13 → UNDOADMIN 04:32 → J5S 17:21
PROVIDERS: ADMIT Internal Medicine; ATTEND Nurse Practitioner Acute Care
PROC: 30233H1 Transfusion of Nonautologous Whole Blood into Peripheral Vein, Percutaneous Approach (ICD-10-PCS; 2017-08-23)
PROC: 0W3P8ZZ Control Bleeding in Gastrointestinal Tract, Via Natural or Artificial Opening Endoscopic (ICD-10-PCS; principal; 2017-08-24 13:00)
DX: K31.82 Dieulafoy lesion (hemorrhagic) of stomach and duodenum (principal); K85.20 Alcohol induced acute pancreatitis without necrosis or infection; R18.8 Other ascites; D62 Acute posthemorrhagic anemia; R16.0 Hepatomegaly, not elsewhere classified; E88.09 Other disorders of plasma-protein metabolism, not elsewhere classified; Z21 Asymptomatic human immunodeficiency virus [HIV] infection status; F10.20 Alcohol dependence, uncomplicated; F17.210 Nicotine dependence, cigarettes, uncomplicated; J45.909 Unspecified asthma, uncomplicated; K29.70 Gastritis, unspecified, without bleeding; R74.0 Nonspecific elevation of levels of transaminase and lactic acid dehydrogenase [LDH]; D53.9 Nutritional anemia, unspecified; E86.0 Dehydration; R63.4 Abnormal weight loss; Z68.23 Body mass index [BMI] 23.0-23.9, adult; Y90.0 Blood alcohol level of less than 20 mg/100 ml
CPT/HCPCS: 36415; 36430; 36511; 71045-TC-FY; 80053; 80061; 80307; 82150; 82272; 82550; 82784; 83605; 83615; 83690; 83721; 83735; 83883; 84100; 84155; 84165; 84484; 85025; 85027; 85610; 86334; 86850; 86900; 86901; 86922; 90670; 90688; 93005; 93010; 99285-25; G0008; G0009; J7030; P9038; P9058

== ENCOUNTER 2018-05-08 11:54 | Inpatient (IN) | payer OTHER ==
[2018-05-08] MEDS ORDERED: PANTOPRAZOLE SODIUM 40 MG VIAL IVPUSH ONE (13:27)
[2018-05-08] MEDS ORDERED: SODIUM CHLORIDE 0.9% 500 ML INFUS.BAG IV ONE ×2 (13:43→15:11)
--- NOTE | 2018-05-08 13:43 | PDOC ---
History of Present Illness - General Chief Complaint: Vomiting Blood Stated Complaint: Hemoptysis - History of Present Illness Initial Comments: The patient is a history of HIV and EtOH abuse who presents for evaluation of 2d of BRB in stool as well as 1d of reported coffee ground emesis x4. He endorses associated espohageal burning s/p emesis. Endorses associated non- radiating, burning epigastric pain that is not worsened or alleviated by anything that he can identify within the last day. He reports having had this before approximately 6m ago. He reports having undergone an endoscopy but does not recall the results. He reports drinking 'many' drinks per day. Reports having one budweiser today. Denies history of withdrawal or shakes. Denies feeling that way today Denies recent illness, fevers/chills, GARCIA, vision changes, chest pain, SOB, constipation/diarrhea, or any changes in symptoms. He denies PCP and having a GI MD. 05/08/18 13:34 Past History - Past Medical History Allergies/Adverse Reactions: Allergies Allergy/AdvReac Type Severity Reaction Status Date / Time No Known Allergies Allergy Verified 05/08/18 12:07 Home Medications: Ambulatory Orders Abacavir/Dolutegravir/Lamivudi [Triumeq Tablet] 1 each PO DAILY #30 tablet 04/10 Multivitamin,Ther and Minerals [Vitamin and Minerals] 1 each PO DAILY #30 tablet 04/10/18 Anemia: Yes Asthma: No Cancer: No Cardiac Disorders: No CVA: No COPD: No CHF: No Dementia: No Diabetes: No GI Disorders: No Disorders: No HTN: No Hypercholesterolemia: No Liver Disease: No Psychiatric Problems: Yes (alcohol abuse drinks 24 beer daily) Seizures: No Thyroid Disease: No - Surgical History Abdominal Surgery: No Appendectomy: No Cardiac Surgery: No Cholecystectomy: No GI Surgery: Yes (endoscopy (neg)) Lung Surgery: No Neurologic Surgery: No Orthopedic Surgery: No - Suicide/Smoking/Psychosocial Hx Smoking History: Never smoked Have you smoked in the past 12 months: No Number of Cigarettes Smoked Daily: 4 Cigars Per Day: 0 Information on smoking cessation initiated: No 'Breaking Loose' booklet given: 08/23/17 Hx Alcohol Use: No Drug/Substance Use Hx: No Substance Use Type: Alcohol Hx Substance Use Treatment: No Review of Systems - Review of Systems Able to Perform ROS?: Yes Comments:: GENERAL/CONSTITUTIONAL: No fever or chills. No weakness HEAD, EYES, EARS, NOSE AND THROAT: No change in vision. No ear pain or discharge. No sore throat CARDIOVASCULAR: No chest pain or shortness of breath RESPIRATORY: Denies cough, hemoptysis GASTROINTESTINAL: per HPI GENITOURINARY: No dysuria, frequency, or change in urination MUSCULOSKELETAL: No joint or muscle swelling or pain. No neck or back pain SKIN: No rash NEUROLOGIC: No headache, vertigo, loss of consciousness, or change in strength/ sensation ENDOCRINE: No increased thirst. No abnormal weight change HEMATOLOGIC/LYMPHATIC: No anemia, easy bleeding, or history of blood clots ALLERGIC/IMMUNOLOGIC: No hives or skin allergy 05/08/18 13:46 Is the patient limited Prydeinig proficient: No *Physical Exam - Vital Signs Last Vital Signs Temp Pulse Resp BP Pulse Ox 98.6 F 100 H 16 122/79 100 05/08/18 12:05 05/08/18 12:05 05/08/18 12:05 05/08/18 12:05 05/08/18 12:05 - Physical Exam Comments: GENERAL: Awake, alert, and fully oriented, in no acute distress HEAD: No signs of trauma, normocephalic, atraumatic EYES: PERRLA, EOMI, mild scleral icterus, conjunctiva clear ENT: Hearing grossly normal, nares patent, oropharynx clear without exudates. Moist mucosa LUNGS: No distress, speaks full sentences, clear to auscultation bilaterally HEART: Regular rate and rhythm, normal S1 and S2, no murmurs appreciated, peripheral pulses normal and equal bilaterally ABDOMEN: Soft, mild epigastric TTP w/o rebound or guarding, normoactive bowel sounds RECTAL: soft stool in vault, no blood on glove, normal tone, no external hemorrhoids EXTREMITIES : Normal inspection, Normal range of motion, no edema. No clubbing or cyanosis NEUROLOGICAL: Cranial nerves II through XII grossly intact. Normal speech, normal gait, no focal sensorimotor deficits SKIN: Warm, Dry, normal turgor, no rashes or lesions noted 05/08/18 13:47 Moderate Sedation - Procedure Monitoring Vital Signs: Procedure Monitoring Vital Signs Temperature 98.6 F 05/08/18 12:05 Pulse Rate 100 H 05/08/18 12:05 Respiratory Rate 16 05/08/18 12:05 Blood Pressure 122/79 05/08/18 12:05 O2 Sat by Pulse Oximetry (%) 100 05/08/18 12:05 ED Treatment Course - LABORATORY CBC & Chemistry Diagram: 05/08/18 14:00 05/08/18 14:00 - RADIOLOGY Radiology Studies Ordered: Category Date Time Status CHEST X-RAY PORTABLE* [RAD] Stat Radiology 05/08/18 13:27 Ordered Medical Decision Making - Medical Decision Making The patient is a 48M who presents for hematemesis and hematochezia for 2d ED Course CMP, CBC, T/S, cardiac enzymes, coags ECG CXR Protonix 40mg IV once NS 1L 05/08/18 13:48 No leukocytosis Mild anemia, Hgb 9.6 CXR w/o acute pathology 05/08/18 14:23 Maalox and Lidocaine for symptomatic relief 05/08/18 15:10 FOBT+ 05/08/18 16:07 No BEATRIZ Trop I neg Plan for admission for GI bleed 05/08/18 16:10 History of normal EGD, no colonoscopy 05/08/18 16:11 Plan for admission w/ GI consult 05/08/18 17:36 *DC/Admit/Observation/Transfer Diagnosis at time of Disposition: HIV (human immunodeficiency virus infection) Alcohol dependence Qualifiers: Substance use status: unspecified alcohol-induced disorder Qualified Code(s): F10.29 - Alcohol dependence with unspecified alcohol-induced disorder GIB (gastrointestinal bleeding) Qualifiers: GI bleed type/associated pathology: unspecified gastrointestinal hemorrhage type Qualified Code(s): K92.2 - Gastrointestinal hemorrhage, unspecified - Discharge Dispostion Condition at time of disposition: Good Decision to Admit order: Yes - Referrals - Patient Instructions - Post Discharge Activity
[2018-05-08] MEDS ORDERED: PANTOPRAZOLE SODIUM 40 MG/100 ML BAG IVPB ONE (13:54)
--- NOTE | 2018-05-08 13:55 | PDOC ---
Attending Attestation - Resident Resident Name: Trell Son - ED Attending Attestation I have performed the following: I have examined & evaluated the patient, The case was reviewed & discussed with the resident, I agree w/resident's findings & plan - HPI HPI: 05/08/18 15:10 Mr. Barrett is a 48 year old male with past medical history significant for HIV and alcohol abuse presents to the emergency department with nausea, with coffee ground emesis x1 day and 2 days of bright red blood per stool. The patient was admitted in August for similar problem. During the stay, the patient had an endoscopy done that was significant for non-bleeding dieulafoy lesion in the cardia, that was clipped and tattooed antral and body gastritis and duodenitits ( 2nd part of duodenum), H/Pylori Neg, otherwise normal exam. The patient was discharged and advised to stop the use of alcohol. The patient reports the continued use of alcohol, denies GI or PCP follow-up. Allergies: NKA PCP: None reported - Physicial Exam PE: 05/08/18 15:10 NAD, sleeping. PERRL, EOMI, +dry membranes, scleral icterus. neck supple. lungs clear, RRR, abdomen soft +epigastric TTP, protuberant abdomen. DELGADO x4, no focal neuro deficits. No peripheral edema. normal color for ethnicity, WWP. - Medical Decision Making 05/08/18 15:14 See HPI for details DDx. alcoholic gastritis, pancreatitis, hepatitis, electrolyte abnormalities. Metabolic derangements, GIB, PUD, gastric/duodenal ulcer. Alcoholic w/d. variceal bleed. no fever to suggest SbP Vital signs reviewed, +tachy Prior notes reviewed, including admissions, discharges and consultations. laboratory results and imaging reviewed, basic labs and lytes wnl, notable for acute on chronic anemia, normal trop, so doubt ACS +LFTs elevated, c/w prior with AST>ALT, c/w alcoholic hepatitis. EKG normal sinus rhythm, no interval abnormalities, narrow QRS, ST and T wave segments and morphology normal. Nonspecific T wave abnormalities ED course: IVF, protonix, maalox. Reexam with epigastric AP. no peritoneal findings. Dispo: admit for serial exams, serial H/H, AP in setting of alcohol abuse and HIV history - suspecting alcohol gastritis flare, GI cs for further eval/ management. 12/07/18 07:19
[2018-05-08 14:10] LABS: HEMATOCRIT 27.1 % (35.4-49); HEMOGLOBIN 9.6 GM/dL (11.7-16.9); LYMPH % 26.5 % (8-40); MCH 31.3 pg (25.7-33.7); MCHC 35.3 g/dl (32.0-35.9); MEAN CELL VOLUME 88.7 fl (80-96); MEAN PLT VOLUME 8.7 fl (7.5-11.1); MONO % 13.6 % (3.8-10.2); NEUT % 52.9 % (42.8-82.8); PLATELET COUNT 199 K/MM3 (134-434); RBC 3.06 M/mm3 (4.00-5.60); RDW 18.2 % (11.9-15.9); WHITE BLOOD COUNT 5.7 K/mm3 (4.0-10.0)
[2018-05-08 14:31] LABS: INR 1.18 (0.83-1.09)
[2018-05-08 14:32] LABS: ALBUMIN 2.6 g/dl (3.4-5.0); ALK PHOS 83 U/L (45-117); ANION GAP 7 MMOL/L (8-16); BILIRUBIN,TOTAL 0.5 mg/dL (0.2-1); BLOOD UREA NITROGEN 13 mg/dL (7-18); CALCIUM 7.9 mg/dL (8.5-10.1); CHLORIDE 103 mmol/L (98-107); CO2 25 mmol/L (21-32); CREATININE 0.9 mg/dL (0.55-1.3); GLUCOSE,RANDOM 97 mg/dL (74-106); POTASSIUM 3.7 mmol/L (3.5-5.1); SGOT/AST 123 U/L (15-37); SGPT/ALT 64 U/L (13-61); SODIUM 135 mmol/L (136-145); TOT PROT 9.5 g/dl (6.4-8.2)
[2018-05-08 14:33] LABS: ACTIVATED PTT 33.7 SECONDS (25.2-36.5)
[2018-05-08] MEDS ORDERED: LIDOCAINE VISCOUS 2% ORAL/TOP 20 ML UNIT-DOSE CUP MM ONE (15:10)
[2018-05-08] MEDS ORDERED: MAG HYDROX/AL HYDROX/SIMETH 30 ML UNIT-DOSE CUP PO ONE (15:10)
[2018-05-08] MEDS ORDERED: MAG HYDROX/AL HYDROX/SIMETH 30 ML UNIT-DOSE CUP ONE (15:24)
[2018-05-08] MEDS ORDERED: LIDOCAINE VISCOUS 2% ORAL/TOP 20 ML UNIT-DOSE CUP ONE (15:24)
[2018-05-08] MEDS ORDERED: chlordiazePOXIDE HCL 25 MG CAPSULE PO ONE (17:28)
[2018-05-08] MEDS ORDERED: chlordiazePOXIDE HCL 25 MG CAPSULE ONE (17:29)
--- NOTE | 2018-05-08 17:36 | PN ---
Progress Note (short form) - Note Progress Note: please call gi second operator. Thanks
--- NOTE | 2018-05-08 18:08 | HP ---
Admitting History and Physical - Primary Care Physician PCP: Dmitriy Anand - Admission History of Present Illness: 48 year old male with past medical history significant for HIV and alcohol abuse presents to the emergency department with nausea, with coffee ground emesis x1 day and 2 days of bright red blood per stool. The patient was admitted in August for similar problem. During the stay, the patient had an endoscopy done that was significant for non-bleeding dieulafoy lesion in the cardia, that was clipped and tattooed antral and body gastritis and duodenitits ( 2nd part of duodenum), H/Pylori Neg, otherwise normal exam. The patient was discharged and advised to stop the use of alcohol. The patient reports the continued use of alcohol, denies GI or PCP follow-up. - - Past Medical History Infectious Disease: Yes: HIV (On ART) - Smoking History Smoking history: Never smoked Have you smoked in the past 12 months: No Aproximately how many cigarettes per day: 4 - Alcohol/Substance Use Hx Alcohol Use: Yes History of Substance Use: reports: None - Social History ADL: Independent Occupation: Unemployed History of Recent Travel: No Home Medications - Allergies Allergies/Adverse Reactions: Allergies Allergy/AdvReac Type Severity Reaction Status Date / Time No Known Allergies Allergy Verified 05/08/18 12:07 - Home Medications Home Medications: Ambulatory Orders Abacavir/Dolutegravir/Lamivudi [Triumeq 600-50-300 mg Tablet] 1 each PO DAILY # 30 tablet 04/10/18 Multivitamin,Ther and Minerals [Vitamin and Minerals] 1 each PO DAILY #30 tablet 04/10/18 Pantoprazole Sodium [Protonix] 40 mg PO DAILY #30 tablet. 05/09/18 Family Disease History - Family Disease History Family History: Denies Family Disease History: Other: Father (: unknown causes), Mother (: unknown causes), Son (alive: healthy) Physical Examination Vital Signs: Vital Signs Temperature 100.1 F H 05/08/18 17:25 Pulse Rate 103 H 05/08/18 17:25 Respiratory Rate 16 05/08/18 12:05 Blood Pressure 152/91 05/08/18 17:25 O2 Sat by Pulse Oximetry (%) 98 05/08/18 17:25 Constitutional: Yes: Anxious HENT: Yes: Atraumatic Neck: Yes: Supple Cardiovascular: Yes: Regular Rate and Rhythm Respiratory: Yes: CTA Bilaterally Gastrointestinal: Yes: Normal Bowel Sounds Extremities: Yes: WNL Edema: No Peripheral Pulses WNL: Yes Neurological: Yes: Alert, Oriented Labs: CBC, BMP 05/08/18 14:00 05/08/18 14:00 Imaging - Results X-ray: Report Reviewed Problem List - Problems (1) GIB (gastrointestinal bleeding) Assessment/Plan: npo, ivf, iv protonix gi consult Code(s): K92.2 - GASTROINTESTINAL HEMORRHAGE, UNSPECIFIED Qualifiers: GI bleed type/associated pathology: unspecified gastrointestinal hemorrhage type Qualified Code(s): K92.2 - Gastrointestinal hemorrhage, unspecified (2) Alcohol dependence Assessment/Plan: prn librium Code(s): F10.20 - ALCOHOL DEPENDENCE, UNCOMPLICATED Qualifiers: Substance use status: unspecified alcohol-induced disorder Qualified Code(s ): F10.29 - Alcohol dependence with unspecified alcohol-induced disorder (3) HIV (human immunodeficiency virus infection) Code(s): Z21 - ASYMPTOMATIC HUMAN IMMUNODEFICIENCY VIRUS INFECTION STATUS Assessment/Plan Laboratory Tests 05/08/18 05/08/18 05/08/18 14:00 14:00 14:00 WBC RBC Hgb Hct MCV MCH MCHC RDW Plt Count MPV Absolute Neuts (auto) Neutrophils % Lymphocytes % Monocytes % Eosinophils % Basophils % Nucleated RBC % PT with INR 14.00 H INR 1.18 H PTT (Actin FS) 33.7 Sodium 135 L Potassium 3.7 Chloride 103 Carbon Dioxide 25 Anion Gap 7 L BUN 13 Creatinine 0.9 Creat Clearance w eGFR > 60 Random Glucose 97 Calcium 7.9 L Total Bilirubin 0.5 AST 123 H ALT 64 H Alkaline Phosphatase 83 Creatine Kinase 54 Troponin I < 0.02 Total Protein 9.5 H Albumin 2.6 L Stool Occult Blood Blood Type O POSITIVE Antibody Screen Negative 05/08/18 05/08/18 14:00 15:20 WBC 5.7 RBC 3.06 L Hgb 9.6 L Hct 27.1 L D MCV 88.7 MCH 31.3 MCHC 35.3 RDW 18.2 H Plt Count 199 MPV 8.7 Absolute Neuts (auto) 3.0 Neutrophils % 52.9 Lymphocytes % 26.5 Monocytes % 13.6 H Eosinophils % 6.0 H Basophils % 1.0 Nucleated RBC % 0 PT with INR INR PTT (Actin FS) Sodium Potassium Chloride Carbon Dioxide Anion Gap BUN Creatinine Creat Clearance w eGFR Random Glucose Calcium Total Bilirubin AST ALT Alkaline Phosphatase Creatine Kinase Troponin I Total Protein Albumin Stool Occult Blood Positive Blood Type Antibody Screen Active Medications Generic Name Dose Route Start Last Admin Trade Name Freq PRN Reason Stop Dose Admin Chlordiazepoxide HCl 25 mg 05/09/18 19:40 Librium - PO Q6H PRN WITHDRAWAL(CONT SUBST) Pantoprazole Sodium 40 mg 05/10/18 10:00 Protonix - PO DAILY CHIQUI
[2018-05-08] MEDS ORDERED: SODIUM CHLORIDE 1,000 ML IV SCH (18:15)
[2018-05-08 18:29] VITALS: BMI 26.6
[2018-05-08] MEDS ORDERED: LORazepam 2 MG/ML SDV VIAL IM PRN (18:53)
[2018-05-08] MEDS: SODIUM CHLORIDE 1,000 ML IV SCH (22:40)
[2018-05-09] MEDS: SODIUM CHLORIDE 1,000 ML IV SCH ×2 (04:46→15:51)
[2018-05-09 06:36] LABS: BASO % 0.7 % (0-2.0); EOS % 6.7 % (0-4.5); HEMATOCRIT 27.2 % (35.4-49); HEMOGLOBIN 9.4 GM/dL (11.7-16.9); LYMPH % 19.9 % (8-40); MCHC 34.6 g/dl (32.0-35.9); MEAN CELL VOLUME 89.6 fl (80-96); MEAN PLT VOLUME 9.1 fl (7.5-11.1); MONO % 9.3 % (3.8-10.2); NEUT % 63.4 % (42.8-82.8); PLATELET COUNT 190 K/MM3 (134-434); RBC 3.04 M/mm3 (4.00-5.60); RDW 18.3 % (11.9-15.9); WHITE BLOOD COUNT 6.2 K/mm3 (4.0-10.0)
[2018-05-09 07:32] LABS: ALBUMIN 2.5 g/dl (3.4-5.0); ALK PHOS 68 U/L (45-117); ANION GAP 9 MMOL/L (8-16); BLOOD UREA NITROGEN 9 mg/dL (7-18); CALCIUM 7.5 mg/dL (8.5-10.1); CHLORIDE 106 mmol/L (98-107); CO2 22 mmol/L (21-32); CREATININE 0.7 mg/dL (0.55-1.3); GLUCOSE,RANDOM 84 mg/dL (74-106); POTASSIUM 3.5 mmol/L (3.5-5.1); SGOT/AST 116 U/L (15-37); SGPT/ALT 55 U/L (13-61); SODIUM 137 mmol/L (136-145); TOT PROT 8.8 g/dl (6.4-8.2)
[2018-05-09 09:29] LABS: URINE APPEARANCE CLEAR; URINE BILIRUBIN NEGATIVE (<2.0 mg/dL); URINE COLOR YELLOW; URINE GLUCOSE (UA) NEGATIVE (NEGATIVE); URINE KETONE NEGATIVE (NEGATIVE); URINE LEUK ESTERASE NEGATIVE (NEGATIVE); URINE NITRITE NEGATIVE (NEGATIVE); URINE PROTEIN NEGATIVE (NEGATIVE); URINE UROBILINOGEN NEGATIVE mg/dL (0.2-1.0)
[2018-05-09] MEDS ORDERED: PANTOPRAZOLE SODIUM 40 MG VIAL IVPUSH SCH ×2 (10:00)
--- NOTE | 2018-05-09 10:28 | EKG ---
Test Reason : Blood Pressure : / mmHG Vent. Rate : 105 BPM Atrial Rate : 105 BPM P-R Int : 152 ms QRS Dur : 098 ms QT Int : 348 ms P-R-T Axes : 057 031 013 degrees QTc Int : 459 ms SINUS TACHYCARDIA OTHERWISE NORMAL ECG WHEN COMPARED WITH ECG OF 23-AUG-2017 03:43, T WAVE AMPLITUDE HAS INCREASED IN LATERAL LEADS Confirmed by SARAN JIMENEZ MD ([id number]) on 05/09/2018 10:28:40 AM Referred By: Confirmed By:SARAN JIMENEZ MD
--- NOTE | 2018-05-09 12:10 | PN ---
[facility] Progress Note (SOAP) Subjective: 48 y.o. male w/ etoh abuse referred for consultation , pt presented to ED coffee -ground emesis yesterday , similar episode August 2017 with GI endoscopy findings of non-bleeding dieulafoy lesion in the cardia, that was clipped and tattooed antral and body gastritis and duodenitits ( 2nd part of duodenum). Patient currently reports alcohol use 6 beers/day x 1 week , prior sobriety since prevous admission and over the last 10 years , first age of alcohol use : 14 , denies withdrawal seizures, blackouts or tremors , currently denies nausea/ vomiting/ diarrhea , sensitivity to lights or sounds, headache, tactile disturbances. Patient reports cough and history of cigar smoking x 30 years, 6-7 cigars/ day . Homeless- [facility] . Objective: 05/09/18 12:06 wnwd resting in bed comfortably . + UE mild tremors with arms extended , otherwise AAO x 3 . Abnormal Lab Results 05/08/18 05/08/18 05/08/18 14:00 14:00 14:00 RBC 3.06 L Hgb 9.6 L Hct 27.1 L D RDW 18.2 H Monocytes % 13.6 H Eosinophils % 6.0 H PT with INR 14.00 H INR 1.18 H Sodium 135 L Anion Gap 7 L Calcium 7.9 L AST 123 H ALT 64 H Total Protein 9.5 H Albumin 2.6 L 05/09/18 05/09/18 06:00 06:00 RBC 3.04 L Hgb 9.4 L Hct 27.2 L RDW 18.3 H Monocytes % Eosinophils % 6.7 H PT with INR INR Sodium Anion Gap Calcium 7.5 L AST 116 H ALT Total Protein 8.8 H Albumin 2.5 L Vital Signs - 24 hr 05/08/18 05/08/18 05/08/18 17:25 18:04 22:45 Temperature 100.1 F H 100.1 F H 97.4 F L Pulse Rate 105 H 94 H Pulse Rate [ 103 H Left Radial] Respiratory 20 18 Rate Blood Pressure 148/89 141/86 Blood Pressure 152/91 [Left Arm] O2 Sat by Pulse 98 97 96 Oximetry (%) 05/09/18 05/09/18 05/09/18 02:00 06:05 08:49 Temperature 98.3 F 98.1 F 98.8 F Pulse Rate 93 H 97 H 104 H Pulse Rate [ Left Radial] Respiratory 20 20 20 Rate Blood Pressure 139/84 133/79 154/85 Blood Pressure [Left Arm] O2 Sat by Pulse Oximetry (%) 05/09/18 09:00 Temperature Pulse Rate Pulse Rate [ Left Radial] Respiratory Rate Blood Pressure Blood Pressure [Left Arm] O2 Sat by Pulse 95 Oximetry (%) Active Medications Generic Name Dose Route Start Last Admin Trade Name Freq PRN Reason Stop Dose Admin Sodium Chloride 1,000 mls @ 100 mls/hr 05/08/18 22:42 05/09/18 04:46 Normal Saline - IV 100 mls/hr ASDIR CHIQUI Administration Lorazepam 1 mg 05/08/18 18:53 Ativan Injection - IM Q6H PRN ANXIETY Pantoprazole Sodium 40 mg 05/09/18 10:00 05/09/18 09:37 Protonix Iv IVPUSH 40 mg DAILY CHIQUI Administration 05/09/18 12:08 Assessment: 05/09/18 12:09 ETOH abuse with mild withdrawal Plan: short Valium taper , d/c Ativan recommend inpatient rehab or linkage with outpatient substance abuse services when medically stable
[2018-05-09] MEDS ORDERED: diazePAM 5 MG TABLET PO SCH (14:00)
--- NOTE | 2018-05-09 17:07 | PN ---
Progress Note, Physician History of Present Illness: no more vomitting - Current Medication List Current Medications: Active Medications Diazepam (Valium -) 5 mg PO TID [facility] Stop: 05/10/18 22:01 Last Admin: 05/09/18 14:40 Dose: 5 mg Diazepam (Valium -) 5 mg PO BID [facility] Stop: 05/11/18 22:01 Diazepam (Valium -) 5 mg PO DAILY [facility] Stop: 05/12/18 10:01 Sodium Chloride (Normal Saline -) 1,000 mls @ 100 mls/hr IV ASDIR [facility] Last Admin: 05/09/18 15:51 Dose: 100 mls/hr Pantoprazole Sodium (Protonix Iv) 40 mg IVPUSH DAILY [facility] Last Admin: 05/09/18 09:37 Dose: 40 mg - Objective Vital Signs: Vital Signs Temperature 99.3 F 05/09/18 14:16 Pulse Rate 95 H 05/09/18 14:16 Respiratory Rate 18 05/09/18 14:16 Blood Pressure 146/78 05/09/18 14:16 O2 Sat by Pulse Oximetry (%) 95 05/09/18 09:00 Constitutional: Yes: No Distress HENT: Yes: Atraumatic Neck: Yes: Supple Cardiovascular: Yes: Regular Rate and Rhythm Respiratory: Yes: CTA Bilaterally Gastrointestinal: Yes: Normal Bowel Sounds Extremities: Yes: WNL Neurological: Yes: Alert, Oriented Labs: CBC, BMP 05/09/18 06:00 05/09/18 06:00 INR, PTT INR 1.18 (0.83-1.09) H 05/08/18 14:00 Problem List - Problems (1) GIB (gastrointestinal bleeding) Assessment/Plan: advance diet as tolerated no more gi bleed or vomitting Code(s): K92.2 - GASTROINTESTINAL HEMORRHAGE, UNSPECIFIED Qualifiers: GI bleed type/associated pathology: unspecified gastrointestinal hemorrhage type Qualified Code(s): K92.2 - Gastrointestinal hemorrhage, unspecified (2) Alcohol dependence Assessment/Plan: prn librium Code(s): F10.20 - ALCOHOL DEPENDENCE, UNCOMPLICATED Qualifiers: Substance use status: unspecified alcohol-induced disorder Qualified Code(s ): F10.29 - Alcohol dependence with unspecified alcohol-induced disorder (3) HIV (human immunodeficiency virus infection) Code(s): Z21 - ASYMPTOMATIC HUMAN IMMUNODEFICIENCY VIRUS INFECTION STATUS
[2018-05-09] MEDS ORDERED: chlordiazePOXIDE HCL 25 MG CAPSULE PO PRN (19:40)
--- NOTE | 2018-05-09 21:27 | CON.GI ---
Consult Consult Specialty:: Gastroenterology ( covering Dr Arroyo) Referred by:: Dr Anand Reason for Consultation:: Hematemesis - History of Present Illness Chief Complaint: Vomiting of blood History of Present Illness: 48M is admitted after he developed hematemesis and melena yesterday. No overt bleeding today. He presented similarly in 08/[address] Bautista performed an initial initial unrevealing EGD followed by an EGD/Enteroscopy and colonoscopy on 08/24/17 when he found a fundal Dieulafoy erosion which he endoclipped and tattooed. No varices were seen. Colonoscopy revealed only diverticulosis. He required transfusions. Despite the bleeding he resumed drinking about a six pack of beer daily. He denies IVDA and tells me he acquired HIV through sex. - History Source History Provided By: Patient Limitations to Obtaining History: No Limitations - Past Medical History Gastrointestinal: Yes: Diverticulosis, Other (Dieulafoy erosion bleed 08/19) Hepatobiliary: Yes: Cirrhosis (alcoholic cirrhosis), Other (Alcoholic hepatitis) Heme/Onc: Yes: Anemia Infectious Disease: Yes: HIV (On ART) Psych: Yes: Addictions (alcoholism) - Past Surgical History Past Surgical History: Yes: Colonoscopy, Upper Endoscopy - Alcohol/Substance Use Hx Alcohol Use: Yes (6 pack beer daily) History of Substance Use: reports: None - Smoking History Smoking history: Current every day smoker Have you smoked in the past 12 months: No Aproximately how many cigarettes per day: 4 - Social History Usual Living Arrangement: With Significant Other ADL: Independent Occupation: Unemployed Place of : Other ([place]) Came to [place]year[place] age 24 History of Recent Travel: No Home Medications - Allergies Allergies/Adverse Reactions: Allergies Allergy/AdvReac Type Severity Reaction Status Date / Time No Known Allergies Allergy Verified 05/08/18 12:07 - Home Medications Home Medications: Ambulatory Orders Abacavir/Dolutegravir/Lamivudi [Triumeq 600-50-300 mg Tablet] 1 each PO DAILY # 30 tablet 04/10/18 Multivitamin,Ther and Minerals [Vitamin and Minerals] 1 each PO DAILY #30 tablet 04/10/18 Pantoprazole Sodium [Protonix] 40 mg PO DAILY #30 tablet. 05/09/18 Family Disease History - Family Disease History Family Disease History: Other: Father (: unknown causes), Mother (: unknown causes), Son (alive: healthy) Review of Systems - Review of Systems Constitutional: reports: No Symptoms Eyes: reports: No Symptoms HENT: reports: No Symptoms Neck: reports: No Symptoms Cardiovascular: reports: No Symptoms Respiratory: reports: No Symptoms Gastrointestinal: reports: Melena, Vomiting Genitourinary: reports: No Symptoms Physical Exam-GI Vital Signs: Vital Signs Temperature 98.8 F 05/09/18 18:00 Pulse Rate 94 H 05/09/18 18:00 Respiratory Rate 18 05/09/18 18:00 Blood Pressure 148/78 05/09/18 18:00 O2 Sat by Pulse Oximetry (%) 95 05/09/18 09:00 CBC,CMP WBC 6.2 K/mm3 (4.0-10.0) 05/09/18 06:00 RBC 3.04 M/mm3 (4.00-5.60) L 05/09/18 06:00 Hgb 9.4 GM/dL (11.7-16.9) L 05/09/18 06:00 Hct 27.2 % (35.4-49) L 05/09/18 06:00 MCV 89.6 fl (80-96) 05/09/18 06:00 MCH 31.0 pg (25.7-33.7) 05/09/18 06:00 MCHC 34.6 g/dl (32.0-35.9) 05/09/18 06:00 RDW 18.3 % (11.9-15.9) H 05/09/18 06:00 Plt Count 190 K/MM3 (134-434) 05/09/18 06:00 MPV 9.1 fl (7.5-11.1) 05/09/18 06:00 Absolute Neuts (auto) 4.0 K/mm3 (1.5-8.0) 05/09/18 06:00 Neutrophils % 63.4 % (42.8-82.8) 05/09/18 06:00 Lymphocytes % 19.9 % (8-40) D 05/09/18 06:00 Monocytes % 9.3 % (3.8-10.2) 05/09/18 06:00 Eosinophils % 6.7 % (0-4.5) H 05/09/18 06:00 Basophils % 0.7 % (0-2.0) 05/09/18 06:00 Nucleated RBC % 0 % (0-0) 05/09/18 06:00 Sodium 137 mmol/L (136-145) 05/09/18 06:00 Potassium 3.5 mmol/L (3.5-5.1) 05/09/18 06:00 Chloride 106 mmol/L (98-107) 05/09/18 06:00 Carbon Dioxide 22 mmol/L (21-32) 05/09/18 06:00 Anion Gap 9 MMOL/L (8-16) 05/09/18 06:00 BUN 9 mg/dL (7-18) 05/09/18 06:00 Creatinine 0.7 mg/dL (0.55-1.3) 05/09/18 06:00 Creat Clearance w eGFR > 60 (>60) 05/09/18 06:00 Random Glucose 84 mg/dL (74-106) 05/09/18 06:00 Calcium 7.5 mg/dL (8.5-10.1) L 05/09/18 06:00 Total Bilirubin 1.0 mg/dL (0.2-1) 05/09/18 06:00 AST 116 U/L (15-37) H 05/09/18 06:00 ALT 55 U/L (13-61) 05/09/18 06:00 Alkaline Phosphatase 68 U/L (45-117) 05/09/18 06:00 Creatine Kinase 54 IU/L (26-308) 05/08/18 14:00 Troponin I < 0.02 ng/ml (0.00-0.05) 05/08/18 14:00 Total Protein 8.8 g/dl (6.4-8.2) H 05/09/18 06:00 Albumin 2.5 g/dl (3.4-5.0) L 05/09/18 06:00 Current Medications Generic Name Dose Route Start Last Admin Trade Name Freq PRN Reason Stop Dose Admin Chlordiazepoxide HCl 25 mg 05/09/18 19:40 Librium - PO Q6H PRN WITHDRAWAL(CONT SUBST) Pantoprazole Sodium 40 mg 05/10/18 10:00 Protonix - PO DAILY CHIQUI Constitutional: Yes: No Distress Eyes: Yes: Conjunctiva Clear HENT: Yes: Atraumatic Neck: Yes: Supple Cardiovascular: Yes: Regular Rate and Rhythm Respiratory: Yes: CTA Bilaterally Gastrointestinal Inspection: Yes: WNL ...Auscultate: Yes: Normoactive Bowel Sounds ...Palpate: Yes: Soft, Other (nontender) ...Rectal Exam: Yes: Guaiac Positive (dark guaiac positive stool) Neurological: Yes: Alert, Oriented Labs: CBC, BMP 05/09/18 06:00 05/09/18 06:00 INR, PTT INR 1.18 (0.83-1.09) H 05/08/18 14:00 Problem List - Problems (1) GIB (gastrointestinal bleeding) Assessment/Plan: I suspect that Arnold has an alcoholic gastritis causing his hematemesis but given his past h/o a Dieulafoy erosion bleed and the possible interim development of varices an EGD needs to be repeated. I informed him of the potential for such complications as perforation and hemorrhage. He has signed an informed consent. I obed do the EGD tomorrow. Continue PPI Code(s): K92.2 - GASTROINTESTINAL HEMORRHAGE, UNSPECIFIED Qualifiers: GI bleed type/associated pathology: unspecified gastrointestinal hemorrhage type Qualified Code(s): K92.2 - Gastrointestinal hemorrhage, unspecified (2) Alcoholic hepatitis with ascites Assessment/Plan: The AST>ALT is consistent with alcoholic hepatitis. A previous CT revealed ascites. Combined with hypoalbuminemia and elevated INR I have told him that he has advanced liver disease/cirrhosis and that he must absolutely abstain from any further alcohol intake. Code(s): K70.11 - ALCOHOLIC HEPATITIS WITH ASCITES (3) Alcohol dependence Code(s): F10.20 - ALCOHOL DEPENDENCE, UNCOMPLICATED Qualifiers: Substance use status: unspecified alcohol-induced disorder Qualified Code(s ): F10.29 - Alcohol dependence with unspecified alcohol-induced disorder (4) HIV (human immunodeficiency virus infection) Code(s): Z21 - ASYMPTOMATIC HUMAN IMMUNODEFICIENCY VIRUS INFECTION STATUS (5) Alcoholism Code(s): F10.20 - ALCOHOL DEPENDENCE, UNCOMPLICATED (6) Anemia Code(s): D64.9 - ANEMIA, UNSPECIFIED (7) Cirrhosis Code(s): K74.60 - UNSPECIFIED CIRRHOSIS OF LIVER Assessment/Plan Etoh gastritis vs recurrent Dieulafoy bleed For EGD tomorrow Watch for DTs PPI Alcoholic hepatitis superimposed on cirrhosis. Will get sonogram and AFP to screen for hepatoma
[2018-05-10 06:22] LABS: BASO % 0.6 % (0-2.0); EOS % 8.7 % (0-4.5); HEMATOCRIT 29.3 % (35.4-49); HEMOGLOBIN 9.6 GM/dL (11.7-16.9); LYMPH % 24.5 % (8-40); MCH 29.4 pg (25.7-33.7); MCHC 32.6 g/dl (32.0-35.9); MEAN CELL VOLUME 90.1 fl (80-96); MEAN PLT VOLUME 8.5 fl (7.5-11.1); NEUT % 56.2 % (42.8-82.8); PLATELET COUNT 196 K/MM3 (134-434); RBC 3.25 M/mm3 (4.00-5.60); RDW 18.5 % (11.9-15.9); WHITE BLOOD COUNT 6.1 K/mm3 (4.0-10.0)
[2018-05-10 06:55] LABS: ALBUMIN 2.6 g/dl (3.4-5.0); ALK PHOS 70 U/L (45-117); ANION GAP 5 MMOL/L (8-16); BILIRUBIN,DIRECT 0.4 mg/dL (0.0-0.2); BLOOD UREA NITROGEN 6 mg/dL (7-18); CHLORIDE 103 mmol/L (98-107); CO2 26 mmol/L (21-32); CREATININE 0.7 mg/dL (0.55-1.3); GLUCOSE,RANDOM 92 mg/dL (74-106); POTASSIUM 3.6 mmol/L (3.5-5.1); SGOT/AST 107 U/L (15-37); SGPT/ALT 55 U/L (13-61); SODIUM 134 mmol/L (136-145); TOT PROT 9.2 g/dl (6.4-8.2)
[2018-05-10] MEDS ORDERED: PANTOPRAZOLE 40 MG TABLET (FP) PO SCH (10:00)
[2018-05-10 12:26] VITALS: TEMP 98.4
--- NOTE | 2018-05-10 12:26 | PN ---
Progress Note (short form) - Note Progress Note: GI Procedure Note: Please see EGD report. No active bleeding found. No Dieulafoy lesions found. Alcoholic gastritis and duodenitis were found. Can discharge on Pantoprazole 40mg daily. Problem List - Problems (1) GIB (gastrointestinal bleeding) Code(s): K92.2 - GASTROINTESTINAL HEMORRHAGE, UNSPECIFIED Qualifiers: GI bleed type/associated pathology: unspecified gastrointestinal hemorrhage type Qualified Code(s): K92.2 - Gastrointestinal hemorrhage, unspecified (2) Alcoholic hepatitis with ascites Code(s): K70.11 - ALCOHOLIC HEPATITIS WITH ASCITES (3) Alcohol dependence Code(s): F10.20 - ALCOHOL DEPENDENCE, UNCOMPLICATED Qualifiers: Substance use status: unspecified alcohol-induced disorder Qualified Code(s ): F10.29 - Alcohol dependence with unspecified alcohol-induced disorder (4) HIV (human immunodeficiency virus infection) Code(s): Z21 - ASYMPTOMATIC HUMAN IMMUNODEFICIENCY VIRUS INFECTION STATUS (5) Alcoholism Code(s): F10.20 - ALCOHOL DEPENDENCE, UNCOMPLICATED (6) Anemia Code(s): D64.9 - ANEMIA, UNSPECIFIED (7) Cirrhosis Code(s): K74.60 - UNSPECIFIED CIRRHOSIS OF LIVER
[2018-05-10 12:51] VITALS: BP 111/76; PULSE 85
--- NOTE | 2018-05-10 13:00 | DS ---
Physical Examination Vital Signs: Vital Signs Temperature 98.4 F 05/10/18 12:19 Pulse Rate 85 05/10/18 12:51 Respiratory Rate 15 05/10/18 12:51 Blood Pressure 111/76 05/10/18 12:51 O2 Sat by Pulse Oximetry (%) 99 05/10/18 12:51 Constitutional: Yes: No Distress HENT: Yes: Atraumatic Neck: Yes: Supple Cardiovascular: Yes: Regular Rate and Rhythm Respiratory: Yes: CTA Bilaterally Gastrointestinal: Yes: Normal Bowel Sounds Extremities: Yes: WNL Edema: No Neurological: Yes: Alert, Oriented Labs: CBC, BMP 05/10/18 06:00 05/10/18 06:00 Discharge Summary Reason For Visit: ALCOHOL DEPENDENCE Current Active Problems Alcoholic hepatitis with ascites (Acute) GIB (gastrointestinal bleeding) (Acute) Alcohol dependence (Chronic) HIV (human immunodeficiency virus infection) (Chronic) Condition: Good - Instructions Diet, Activity, Other Instructions: gi clinic [phone] do not drink alcohol see gi 1 week Referrals: Manpreet Arroyo DO [Staff Physician] - Disposition: HOME - Home Medications Comprehensive Discharge Medication List: Ambulatory Orders Abacavir/Dolutegravir/Lamivudi [Triumeq 600-50-300 mg Tablet] 1 each PO DAILY # 30 tablet 04/10/18 Multivitamin,Ther and Minerals [Vitamin and Minerals] 1 each PO DAILY #30 tablet 04/10/18 Pantoprazole Sodium [Protonix] 40 mg PO DAILY #30 tablet. 05/09/18 cleared by gi to be dc fu pmd next week
[2018-05-11 04:18] LABS: SERUM IRON SATURATION 8 % (15-55); TOTAL IRON BINDING CAPACITY 324 ug/dL (250-450); UIBC 297 ug/dL (111-343)
[2018-05-11] MEDS ORDERED: diazePAM 5 MG TABLET PO SCH (10:00)
[2018-05-12] MEDS ORDERED: diazePAM 5 MG TABLET PO SCH (10:00)
[2018-05-13 13:13] LABS: HBSAG SCREEN Negative (Negative); HEP A AB, IGM Negative (Negative); HEP B CORE AB, TOT Positive (Negative)
--- NOTE | 2018-05-14 15:51 | PATH ---
Surgical Pathology Report Patient Name: JOLANTA OLSON [facility]. Rec. #: [id number] /Age/Gender: 1970 (Age: 48) / M Account: [id number] Location: [facility] PEDS/ADOL Taken: 05/10/2018 Received: 05/10/2018 Reported: 05/14/2018 Physicians: Carols Marcano M.D. PHYSICIAN EMERGENCY DEPT Specimen(s) Received A: BX 2ND PORTION DUODENUM AND BULB B: BX ANTRUM Clinical History GI bleeding, hematemesis Postoperative diagnosis: Gastritis, duodenitis Final Diagnosis A. DUODENUM, SECOND PORTION AND BULB, BIOPSY: DUODENAL MUCOSA WITH MODERATE CHRONIC DUODENITIS AND INCREASED EOSINOPHILIC INFILTRATE. INTESTINAL PARASITES IDENTIFIED. SEE COMMENT. B. STOMACH, ANTRUM, BIOPSY: GASTRIC ANTRAL MUCOSA WITH SEVERE CHRONIC ACTIVE GASTRITIS. IMMUNOHISTOCHEMICAL STAIN FOR H. PYLORI IS POSITIVE (RARE). Comment: Suggest stool examination (parasite and ova) for definitive classification. Findings discussed with Rand from Dr. Marcano's office. Electronically Signed Chantelle Luna M.D. Gross Description A. Received in formalin, labeled "biopsy second portion of duodenum and bulb" are 3 muse, irregular portions of soft tissue ranging from 0.2-0.4 cm. in greatest dimension. The specimens are submitted in toto in one cassette. B. Received in formalin, labeled "biopsy antrum" are 4 muse, irregular portions of soft tissue ranging from 0.1-0.5 cm. in greatest dimension. The specimens are submitted in toto in one cassette. 05/10/201805/10/2018
== END 2018-05-10 15:11 | disposition home or self-care (01) | DRG 253 ==
LOC: JER 11:54 → JERBED 15:11 → J7W 17:30 → J4S 22:39
PROVIDERS: ADMIT Internal Medicine; ATTEND Internal Medicine
PROC: 0DJ08ZZ Inspection of Upper Intestinal Tract, Via Natural or Artificial Opening Endoscopic (ICD-10-PCS; principal; 2018-05-10 10:45)
DX: K92.2 Gastrointestinal hemorrhage, unspecified (principal); K70.30 Alcoholic cirrhosis of liver without ascites; K70.11 Alcoholic hepatitis with ascites; Z21 Asymptomatic human immunodeficiency virus [HIV] infection status; K29.80 Duodenitis without bleeding; F10.230 Alcohol dependence with withdrawal, uncomplicated; D64.9 Anemia, unspecified; K29.20 Alcoholic gastritis without bleeding; K57.30 Diverticulosis of large intestine without perforation or abscess without bleeding; F17.210 Nicotine dependence, cigarettes, uncomplicated; Z59.0 Homelessness
CPT/HCPCS: 36415; 71045-TC-FY; 76705-TC; 80048; 80053; 80076; 81003; 82105; 82272; 82550; 82728; 83516; 83540; 83550; 84484; 85025; 85610; 85730; 86038; 86704; 86706; 86708; 86803; 86850; 86900; 86901; 87340; 88305-TC; 93005; 93010; 99283-25; J7030

== ENCOUNTER 2022-03-15 10:51 | Inpatient (IN) | payer OTHER ==
[2022-03-15 11:02] VITALS: BMI 26.6
[2022-03-15] MEDS ORDERED: PANTOPRAZOLE SODIUM 40 MG VIAL IVPUSH ONE (14:05)
[2022-03-15] MEDS ORDERED: SODIUM CHLORIDE 0.9% 500 ML INFUS.BAG IV ONE (14:05)
[2022-03-15] MEDS ORDERED: PANTOPRAZOLE SODIUM 40 MG VIAL ONE (14:11)
[2022-03-15 15:37] LABS: BASO % 0.6 % (0-2.0); EOS % 0.6 % (0-4.5); HEMOGLOBIN 8.4 GM/dL (11.7-16.9); LYMPH % 30.8 % (8-40); MCH 35.6 pg (25.7-33.7); MEAN CELL VOLUME 101.6 fl (80-96); MEAN PLT VOLUME 8.5 fl (7.5-11.1); MONO % 15.8 % (3.8-10.2); NEUT % 52.2 % (42.8-82.8); PLATELET COUNT 182 10^3/uL (134-434); RBC 2.36 M/mm3 (4.00-5.60); RDW 15.1 % (11.9-15.9); WHITE BLOOD COUNT 5.8 K/mm3 (4.0-10.0)
[2022-03-15 15:48] LABS: INR 1.18 (0.83-1.09); PROTHROMBIN TIME (PATIENT) 13.6 SEC (9.7-13.0)
[2022-03-15 15:50] LABS: ACTIVATED PTT 30.6 SECONDS (25.2-36.5)
[2022-03-15 16:02] LABS: CALCIUM 8.3 mg/dL (8.5-10.1)
[2022-03-15 16:03] LABS: ALBUMIN 2.6 g/dl (3.4-5.0); BLOOD UREA NITROGEN 28.9 mg/dL (7-18)
[2022-03-15 16:07] LABS: CREATININE 0.8 mg/dL (0.55-1.3)
[2022-03-15 16:08] LABS: BILIRUBIN,TOTAL 0.6 mg/dL (0.2-1); TOT PROT 9.2 g/dl (6.4-8.2)
[2022-03-15] MEDS ORDERED: THIAMINE HCL 200 MG/2 ML VIAL IVPB ONE (16:24)
[2022-03-15] MEDS ORDERED: THIAMINE HCL 200 MG/2 ML VIAL ONE (16:41)
[2022-03-15] MEDS ORDERED: PANTOPRAZOLE SODIUM 80 MG in SODIUM CHLORIDE 100 ML IVPB SCH (17:00)
[2022-03-15] MEDS ORDERED: SODIUM CHLORIDE 1,000 ML IV SCH (17:45)
[2022-03-15] MEDS ORDERED: OCTREOTIDE ACETATE 200 MCG, OCTREOTIDE ACETATE 1,000 MCG in DEXTROSE 5%-WATER - 496 ML IVPB SCH (18:00)
[2022-03-15] MEDS: PANTOPRAZOLE SODIUM 160 MG in SODIUM CHLORIDE 290 ML IVPB SCH (20:07)
[2022-03-16] MEDS ORDERED: CEFTRIAXONE 1 GM in DEXTROSE 5%-WATER - 50 ML IVPB SCH (08:30)
[2022-03-16] MEDS: DEXTROSE 5%-NORMAL SALINE 1,000 ML IV SCH (10:50)
[2022-03-16 11:03] LABS: BASO % 0.6 % (0-2.0); HEMATOCRIT 25.8 % (35.4-49); HEMOGLOBIN 8.9 GM/dL (11.7-16.9); LYMPH % 26.5 % (8-40); MCH 34.7 pg (25.7-33.7); MCHC 34.5 g/dl (32.0-35.9); MEAN CELL VOLUME 100.5 fl (80-96); MEAN PLT VOLUME 8.8 fl (7.5-11.1); MONO % 14.9 % (3.8-10.2); PLATELET COUNT 178 10^3/uL (134-434); RBC 2.56 M/mm3 (4.00-5.60); RDW 17.5 % (11.9-15.9); WHITE BLOOD COUNT 4.4 K/mm3 (4.0-10.0)
[2022-03-16 11:41] LABS: CALCIUM 7.9 mg/dL (8.5-10.1)
[2022-03-16 11:42] LABS: ALBUMIN 2.5 g/dl (3.4-5.0); BLOOD UREA NITROGEN 13.5 mg/dL (7-18)
[2022-03-16 11:45] LABS: CREATININE 0.8 mg/dL (0.55-1.3)
[2022-03-16 11:57] LABS: BLOOD UREA NITROGEN 13.5 mg/dL (7-18); CALCIUM 8.1 mg/dL (8.5-10.1)
[2022-03-16 12:00] LABS: CREATININE 0.8 mg/dL (0.55-1.3)
[2022-03-16] MEDS: PANTOPRAZOLE SODIUM 160 MG in SODIUM CHLORIDE 290 ML IVPB SCH (13:10)
[2022-03-16] MEDS ORDERED: MIDAZOLAM HCL 2 MG/2 ML SINGLE DOSE VIAL ONE (13:53)
[2022-03-16 17:27] LABS: HEMATOCRIT 26.4 % (35.4-49); HEMOGLOBIN 9.3 GM/dL (11.7-16.9); MCH 35.2 pg (25.7-33.7); MCHC 35.2 g/dl (32.0-35.9); MEAN CELL VOLUME 100.2 fl (80-96); MEAN PLT VOLUME 8.1 fl (7.5-11.1); PLATELET COUNT 186 10^3/uL (134-434); RBC 2.64 M/mm3 (4.00-5.60); RDW 17.4 % (11.9-15.9); WHITE BLOOD COUNT 4.5 K/mm3 (4.0-10.0)
[2022-03-16 18:26] VITALS: RESP 18
[2022-03-17] MEDS: PANTOPRAZOLE 40 MG TABLET PO SCH (10:23)
[2022-03-17 11:55] LABS: HEMATOCRIT 29.4 % (35.4-49); HEMOGLOBIN 10.1 GM/dL (11.7-16.9); MCH 34.5 pg (25.7-33.7); MCHC 34.5 g/dl (32.0-35.9); MEAN CELL VOLUME 100.1 fl (80-96); MEAN PLT VOLUME 8.7 fl (7.5-11.1); PLATELET COUNT 230 10^3/uL (134-434); RBC 2.93 M/mm3 (4.00-5.60); RDW 16.6 % (11.9-15.9)
[2022-03-17 12:26] LABS: ALBUMIN 2.9 g/dl (3.4-5.0); BLOOD UREA NITROGEN 9.9 mg/dL (7-18); CALCIUM 8.3 mg/dL (8.5-10.1); MAGNESIUM 1.9 mg/dL (1.8-2.4)
[2022-03-17 12:30] LABS: CREATININE 0.9 mg/dL (0.55-1.3); PHOSPHOROUS 3.4 mg/dL (2.5-4.9)
[2022-03-17 12:31] LABS: BILIRUBIN,TOTAL 0.8 mg/dL (0.2-1)
[2022-03-18] MEDS: DEXTROSE 5%-NORMAL SALINE 1,000 ML IV SCH (07:45)
[2022-03-18 09:34] LABS: HEMATOCRIT 26.8 % (35.4-49); HEMOGLOBIN 9.2 GM/dL (11.7-16.9); MCH 34.6 pg (25.7-33.7); MCHC 34.4 g/dl (32.0-35.9); MEAN CELL VOLUME 100.4 fl (80-96); MEAN PLT VOLUME 9.2 fl (7.5-11.1); PLATELET COUNT 212 10^3/uL (134-434); RBC 2.67 M/mm3 (4.00-5.60); RDW 16.5 % (11.9-15.9); WHITE BLOOD COUNT 4.6 K/mm3 (4.0-10.0)
[2022-03-18] MEDS: PANTOPRAZOLE 40 MG TABLET PO SCH (09:36)
[2022-03-18 09:38] LABS: CALCIUM 8.2 mg/dL (8.5-10.1)
[2022-03-18 09:39] LABS: ALBUMIN 2.7 g/dl (3.4-5.0); MAGNESIUM 1.8 mg/dL (1.8-2.4)
[2022-03-18 09:42] LABS: CREATININE 0.9 mg/dL (0.55-1.3); PHOSPHOROUS 3.8 mg/dL (2.5-4.9)
[2022-03-18 09:43] LABS: TOT PROT 9.4 g/dl (6.4-8.2)
[2022-03-18 09:44] LABS: BILIRUBIN,TOTAL 0.6 mg/dL (0.2-1)
[2022-03-18 11:03] VITALS: BP 130/80; PULSE 78; TEMP 98.5
== END 2022-03-18 13:32 | disposition home or self-care (01) | DRG 253 ==
LOC: JER 10:51 → JERBED 14:25 → J5S 19:29
PROVIDERS: ADMIT Internal Medicine; ATTEND Internal Medicine
PROC: 30233N1 Transfusion of Nonautologous Red Blood Cells into Peripheral Vein, Percutaneous Approach (ICD-10-PCS; 2022-03-15)
PROC: 0DJ08ZZ Inspection of Upper Intestinal Tract, Via Natural or Artificial Opening Endoscopic (ICD-10-PCS; principal; 2022-03-16 13:30)
DX: K92.2 Gastrointestinal hemorrhage, unspecified (principal); K70.0 Alcoholic fatty liver; D62 Acute posthemorrhagic anemia; I10 Essential (primary) hypertension; F10.20 Alcohol dependence, uncomplicated; Z91.14 Patient's other noncompliance with medication regimen; K29.70 Gastritis, unspecified, without bleeding; K29.80 Duodenitis without bleeding; R74.01 Elevation of levels of liver transaminase levels; D75.89 Other specified diseases of blood and blood-forming organs; K70.10 Alcoholic hepatitis without ascites
CPT/HCPCS: 36415; 36430; 71045-TC-FY; 76705-TC; 80048; 80053; 82272; 82607; 82728; 83010; 83540; 83550; 83615; 83690; 83735; 84100; 85025; 85027; 85045; 85610; 85730; 86850; 86900; 86901; 86922; 93005; 93010; 99285-25; C9803-CS; P9058; U0003; U0005

== ENCOUNTER 2022-11-23 09:30 | Inpatient (IN) | payer OTHER ==
[2022-11-23 10:02] VITALS: BMI 27.4
[2022-11-23 11:24] LABS: HEMATOCRIT 19.2 % (35.4-49); MCH 22.3 pg (25.7-33.7); MCHC 31.5 g/dl (32.0-35.9); MEAN CELL VOLUME 70.8 fl (80-96); MEAN PLT VOLUME 9.3 fl (7.5-11.1); PLATELET COUNT 175 10^3/uL (134-434); RBC 2.71 M/mm3 (4.00-5.60); RDW 22.2 % (11.9-15.9); WHITE BLOOD COUNT 4.1 K/mm3 (4.0-10.0)
[2022-11-23 11:42] LABS: POTASSIUM 3.6 mmol/L (3.5-5.1)
[2022-11-23 11:45] LABS: CALCIUM 7.7 mg/dL (8.5-10.1)
[2022-11-23 11:46] LABS: ALBUMIN 1.9 g/dl (3.4-5.0)
[2022-11-23 11:49] LABS: CREATININE 1.3 mg/dL (0.55-1.3)
[2022-11-23 11:51] LABS: ACTIVATED PTT 33.2 SECONDS (25.2-36.5); BILIRUBIN,TOTAL 0.5 mg/dL (0.2-1); INR 1.18 (0.83-1.09); PROTHROMBIN TIME (PATIENT) 13.7 SEC (9.7-13.0)
[2022-11-23] MEDS ORDERED: PANTOPRAZOLE SODIUM 40 MG VIAL IVPUSH ONE (12:04)
[2022-11-23] MEDS ORDERED: PANTOPRAZOLE SODIUM 40 MG VIAL ONE (12:19)
[2022-11-23] MEDS ORDERED: SODIUM CHLORIDE 1,000 ML IV STA (12:32)
[2022-11-23 12:54] LABS: THROAT:GRP A STREP NOT DETECTED (NOTDETECTED)
[2022-11-23] MEDS: ABACAVIR/DOLUTEGRAVIR/LAMIVUDI (TRIUMEQ) TABLET PO SCH (16:40)
[2022-11-23] MEDS ORDERED: LACTATED RINGERS SOLUTION 1,000 ML/1,000 ML INFUS.BAG IV SCH (18:00)
[2022-11-23] MEDS: PANTOPRAZOLE SODIUM 40 MG VIAL IVPUSH SCH (22:24)
[2022-11-23 22:37] LABS: HEMATOCRIT 22.5 % (35.4-49); HEMOGLOBIN 7.3 GM/dL (11.7-16.9); MCH 23.7 pg (25.7-33.7); MCHC 32.4 g/dl (32.0-35.9); MEAN PLT VOLUME 8.8 fl (7.5-11.1); PLATELET COUNT 190 10^3/uL (134-434); RBC 3.08 M/mm3 (4.00-5.60); RDW 22.8 % (11.9-15.9); WHITE BLOOD COUNT 5.6 K/mm3 (4.0-10.0)
[2022-11-24] MEDS: ABACAVIR/DOLUTEGRAVIR/LAMIVUDI (TRIUMEQ) TABLET PO SCH (09:55)
[2022-11-24] MEDS: PANTOPRAZOLE SODIUM 40 MG VIAL IVPUSH SCH (09:55)
[2022-11-24 10:59] LABS: HEMOGLOBIN 7.3 GM/dL (11.7-16.9); MCH 23.4 pg (25.7-33.7); MCHC 31.9 g/dl (32.0-35.9); MEAN CELL VOLUME 73.3 fl (80-96); MEAN PLT VOLUME 8.5 fl (7.5-11.1); PLATELET COUNT 216 10^3/uL (134-434); RBC 3.14 M/mm3 (4.00-5.60); RDW 22.7 % (11.9-15.9); WHITE BLOOD COUNT 4.8 K/mm3 (4.0-10.0)
[2022-11-24 11:06] LABS: INR 1.16 (0.83-1.09); PROTHROMBIN TIME (PATIENT) 13.4 SEC (9.7-13.0)
[2022-11-24 11:19] LABS: POTASSIUM 3.5 mmol/L (3.5-5.1)
[2022-11-24 11:21] LABS: CALCIUM 7.6 mg/dL (8.5-10.1); MAGNESIUM 1.8 mg/dL (1.8-2.4)
[2022-11-24 11:22] LABS: ALBUMIN 1.9 g/dl (3.4-5.0)
[2022-11-24 11:25] LABS: BILIRUBIN,DIRECT 0.7 mg/dL (0.0-0.2); CREATININE 0.8 mg/dL (0.55-1.3); PHOSPHOROUS 2.2 mg/dL (2.5-4.9)
[2022-11-24 11:27] LABS: BILIRUBIN,TOTAL 1.5 mg/dL (0.2-1); BLOOD UREA NITROGEN 16.6 mg/dL (7-18); TOT PROT 8.5 g/dl (6.4-8.2)
[2022-11-24] MEDS: NAPH,MB-DB/K PH,MBDB POWDER PACKET PO SCH (19:02)
[2022-11-24 19:17] LABS: HEMATOCRIT 22.5 % (35.4-49); HEMOGLOBIN 7.3 GM/dL (11.7-16.9); MCH 24.1 pg (25.7-33.7); MCHC 32.4 g/dl (32.0-35.9); MEAN CELL VOLUME 74.3 fl (80-96); MEAN PLT VOLUME 8.9 fl (7.5-11.1); PLATELET COUNT 209 10^3/uL (134-434); RBC 3.03 M/mm3 (4.00-5.60); RDW 22.6 % (11.9-15.9); WHITE BLOOD COUNT 4.3 K/mm3 (4.0-10.0)
[2022-11-24 20:58] LABS: ANISOCYTOSIS 1+; MACROCYTOSIS 0; PLATELET ESTIMATE NORMAL
[2022-11-24] MEDS: PANTOPRAZOLE 40 MG TABLET PO SCH (21:35)
[2022-11-25 08:36] LABS: HEMATOCRIT 24.7 % (35.4-49); HEMOGLOBIN 7.9 GM/dL (11.7-16.9); MCH 23.6 pg (25.7-33.7); MCHC 31.9 g/dl (32.0-35.9); MEAN CELL VOLUME 74.1 fl (80-96); MEAN PLT VOLUME 8.6 fl (7.5-11.1); PLATELET COUNT 239 10^3/uL (134-434); RBC 3.33 M/mm3 (4.00-5.60); RDW 23.3 % (11.9-15.9); WHITE BLOOD COUNT 4.5 K/mm3 (4.0-10.0)
[2022-11-25 09:21] LABS: POTASSIUM 3.7 mmol/L (3.5-5.1)
[2022-11-25] MEDS: PANTOPRAZOLE 40 MG TABLET PO SCH ×2 (09:27→22:43)
[2022-11-25] MEDS: NAPH,MB-DB/K PH,MBDB POWDER PACKET PO SCH (09:27)
[2022-11-25] MEDS: ABACAVIR/DOLUTEGRAVIR/LAMIVUDI (TRIUMEQ) TABLET PO SCH (09:27)
[2022-11-25 09:30] LABS: BLOOD UREA NITROGEN 11.6 mg/dL (7-18); CALCIUM 8.1 mg/dL (8.5-10.1)
[2022-11-25 09:34] LABS: CREATININE 0.8 mg/dL (0.55-1.3)
[2022-11-25 09:35] LABS: BILIRUBIN,TOTAL 0.8 mg/dL (0.2-1)
[2022-11-25 09:37] LABS: TOT PROT 8.7 g/dl (6.4-8.2)
[2022-11-25 10:41] LABS: ANISOCYTOSIS 0; HELMET CELLS 0; HOWELL-JOLLY BODIES 0; MACROCYTOSIS 0; OVALOCYTE 0; ROULEAU 0; SICKELED CELLS 0; TARGET CELLS 0; TEAR DROP CELLS 0; TOXIC GRANULATION 0
[2022-11-25] MEDS ORDERED: IRON SUCROSE INJECTION 200 MG in SODIUM CHLORIDE 90 ML IVPB ONE (17:00)
[2022-11-26 08:24] LABS: HEMATOCRIT 24.6 % (35.4-49); HEMOGLOBIN 7.9 GM/dL (11.7-16.9); MCH 24.4 pg (25.7-33.7); MCHC 32.1 g/dl (32.0-35.9); MEAN CELL VOLUME 76.1 fl (80-96); MEAN PLT VOLUME 9.5 fl (7.5-11.1); PLATELET COUNT 237 10^3/uL (134-434); RBC 3.24 M/mm3 (4.00-5.60); RDW 23.5 % (11.9-15.9); WHITE BLOOD COUNT 4.9 K/mm3 (4.0-10.0)
[2022-11-26 08:47] LABS: ALBUMIN 2.1 g/dl (3.4-5.0)
[2022-11-26 08:49] LABS: BILIRUBIN,DIRECT 0.2 mg/dL (0.0-0.2)
[2022-11-26 08:51] LABS: BILIRUBIN,TOTAL 0.6 mg/dL (0.2-1); TOT PROT 9.1 g/dl (6.4-8.2)
[2022-11-26] MEDS: ABACAVIR/DOLUTEGRAVIR/LAMIVUDI (TRIUMEQ) TABLET PO SCH (09:26)
[2022-11-26] MEDS: PANTOPRAZOLE 40 MG TABLET PO SCH ×2 (09:26→21:39)
[2022-11-26] MEDS: NAPH,MB-DB/K PH,MBDB POWDER PACKET PO SCH (09:26)
[2022-11-27 08:07] LABS: ALBUMIN 2.2 g/dl (3.4-5.0); BLOOD UREA NITROGEN 10.8 mg/dL (7-18); CALCIUM 8.5 mg/dL (8.5-10.1); MAGNESIUM 1.7 mg/dL (1.8-2.4)
[2022-11-27 08:11] LABS: CREATININE 0.8 mg/dL (0.55-1.3)
[2022-11-27 08:12] LABS: BILIRUBIN,TOTAL 0.5 mg/dL (0.2-1); TOT PROT 9.2 g/dl (6.4-8.2)
[2022-11-27] MEDS: ABACAVIR/DOLUTEGRAVIR/LAMIVUDI (TRIUMEQ) TABLET PO SCH (10:33)
[2022-11-27] MEDS: PANTOPRAZOLE 40 MG TABLET PO SCH (10:33)
[2022-11-27] MEDS: NAPH,MB-DB/K PH,MBDB POWDER PACKET PO SCH (10:38)
[2022-11-27] MEDS ORDERED: MAGNESIUM SULF 50% (8.12 MEQ/2 ML-1 GM VIAL) IVPB ONE (11:45)
[2022-11-27] MEDS ORDERED: KETAMINE HCL 500 MG/10 ML VIAL ONE (12:12)
[2022-11-27] MEDS ORDERED: FENTANYL CITRATE/PF 50 MCG/ML VIAL ONE (12:12)
[2022-11-27] MEDS ORDERED: PEG 3350/NA SULF BICARB CL/KCL 4000 ML SOLN.RECON PO ONE (15:15)
[2022-11-27] MEDS ORDERED: BISACODYL 5 MG TABLET.DR (FP) PO ONE (20:00)
[2022-11-28 08:09] LABS: INR 1.11 (0.83-1.09); PROTHROMBIN TIME (PATIENT) 12.9 SEC (9.7-13.0)
[2022-11-28 08:14] LABS: HEMATOCRIT 27.8 % (35.4-49); HEMOGLOBIN 8.7 GM/dL (11.7-16.9); MCH 24.2 pg (25.7-33.7); MCHC 31.4 g/dl (32.0-35.9); MEAN CELL VOLUME 76.9 fl (80-96); MEAN PLT VOLUME 8.9 fl (7.5-11.1); PLATELET COUNT 340 10^3/uL (134-434); RBC 3.61 M/mm3 (4.00-5.60); RDW 23.7 % (11.9-15.9); WHITE BLOOD COUNT 4.6 K/mm3 (4.0-10.0)
[2022-11-28 08:42] LABS: CALCIUM 8.5 mg/dL (8.5-10.1)
[2022-11-28 08:44] LABS: ALBUMIN 2.4 g/dl (3.4-5.0); BLOOD UREA NITROGEN 8.4 mg/dL (7-18)
[2022-11-28 08:45] LABS: CREATININE 0.9 mg/dL (0.55-1.3)
[2022-11-28 08:46] LABS: TOT PROT 10.1 g/dl (6.4-8.2)
[2022-11-28 08:47] LABS: BILIRUBIN,TOTAL 0.6 mg/dL (0.2-1)
[2022-11-28 09:30] LABS: ANISOCYTOSIS 2+; MACROCYTOSIS 0
[2022-11-28] MEDS ORDERED: PANTOPRAZOLE 40 MG TABLET PO SCH (10:00)
[2022-11-28 10:45] LABS: MAGNESIUM 2.1 mg/dL (1.8-2.4)
[2022-11-28] MEDS: NAPH,MB-DB/K PH,MBDB POWDER PACKET PO SCH (10:45)
[2022-11-28] MEDS: ABACAVIR/DOLUTEGRAVIR/LAMIVUDI (TRIUMEQ) TABLET PO SCH (10:45)
[2022-11-28 15:09] VITALS: TEMP 97.1
[2022-11-28 15:40] VITALS: RESP 18
[2022-11-28 15:44] VITALS: BP 150/81; PULSE 64
[2022-11-28 16:08] LABS: TOTAL PROTEIN, URINE 15.6 mg/dL (Not Estab.)
== END 2022-11-28 18:30 | disposition left against medical advice (07) | DRG 893 ==
LOC: JER 09:30 → JERBED 11:32 → UNDOADMOB 11:32 → INTOOBSV 11:32 → JERBED 16:54 → J4W 21:17 → OBSVTOIN 11-24 14:21
PROVIDERS: ADMIT Internal Medicine; ATTEND Internal Medicine
PROC: 30233N1 Transfusion of Nonautologous Red Blood Cells into Peripheral Vein, Percutaneous Approach (ICD-10-PCS; 2022-11-23)
PROC: HZ2ZZZZ Detoxification Services for Substance Abuse Treatment (ICD-10-PCS; principal; 2022-11-24)
PROC: 0DB98ZX Excision of Duodenum, Via Natural or Artificial Opening Endoscopic, Diagnostic (ICD-10-PCS; 2022-11-27)
PROC: 0DB68ZX Excision of Stomach, Via Natural or Artificial Opening Endoscopic, Diagnostic (ICD-10-PCS; 2022-11-27)
PROC: 0DBP8ZZ Excision of Rectum, Via Natural or Artificial Opening Endoscopic (ICD-10-PCS; 2022-11-28)
DX: D62 Acute posthemorrhagic anemia (principal); B20 Human immunodeficiency virus [HIV] disease; E87.1 Hypo-osmolality and hyponatremia; K70.10 Alcoholic hepatitis without ascites; K70.30 Alcoholic cirrhosis of liver without ascites; B96.81 Helicobacter pylori [H. pylori] as the cause of diseases classified elsewhere; F10.20 Alcohol dependence, uncomplicated; F17.210 Nicotine dependence, cigarettes, uncomplicated; K29.50 Unspecified chronic gastritis without bleeding; K57.90 Diverticulosis of intestine, part unspecified, without perforation or abscess without bleeding; K62.1 Rectal polyp; K64.8 Other hemorrhoids; R74.01 Elevation of levels of liver transaminase levels
CPT/HCPCS: 0241U-QW; 36415; 36430; 36511; 70450-TC; 71045-TC-FY; 76705-TC; 80048; 80053; 80076; 82105; 82140; 82272; 82550; 82728; 82784; 83010; 83540; 83550; 83615; 83735; 83930; 83935; 84100; 84155; 84156; 84157; 84165; 84295; 84300; 84443; 84484; 85025; 85027; 85610; 85730; 86704; 86708; 86709; 86803; 86850; 86900; 86901; 86922; 87340; 87517; 87651; 88305-TC; 88341-TC; 93005; 93010; 99285-25; G0378; J1756; P9038; P9058

== ENCOUNTER 2023-02-08 17:58 | Inpatient (IN) | payer OTHER ==
[2023-02-08] MEDS ORDERED: PANTOPRAZOLE SODIUM 40 MG VIAL IVPUSH ONE (20:06)
[2023-02-08] MEDS ORDERED: SODIUM CHLORIDE 0.9% 500 ML INFUS.BAG IV ONE (20:06)
[2023-02-08] MEDS ORDERED: PANTOPRAZOLE SODIUM 40 MG VIAL ONE (20:19)
[2023-02-08] MEDS ORDERED: diazePAM CARPU-JECT 10 MG/2 ML DISP.SYRIN IVPUSH ONE (20:41)
[2023-02-08] MEDS ORDERED: diazePAM CARPU-JECT 10 MG/2 ML DISP.SYRIN ONE (20:51)
[2023-02-08 21:13] LABS: INR 1.12 (0.83-1.09)
[2023-02-08 21:15] LABS: BASO % 0.5 % (0-2.0); LYMPH % 22.7 % (8-40); MCH 27.9 pg (25.7-33.7); MCHC 33.5 g/dl (32.0-35.9); MEAN CELL VOLUME 83.3 fl (80-96); MEAN PLT VOLUME 9.3 fl (7.5-11.1); MONO % 12.5 % (3.8-10.2); NEUT % 64.3 % (42.8-82.8); PLATELET COUNT 148 10^3/uL (134-434); RBC 2.44 M/mm3 (4.00-5.60); RDW 20.1 % (11.9-15.9); WHITE BLOOD COUNT 5.2 K/mm3 (4.0-10.0)
[2023-02-08 21:16] LABS: ACTIVATED PTT 27.9 SECONDS (25.2-36.5)
[2023-02-08 21:20] LABS: HEMATOCRIT 20.3 % (35.4-49); HEMOGLOBIN 6.8 GM/dL (11.7-16.9)
[2023-02-08 21:31] LABS: ALBUMIN 2.6 g/dl (3.4-5.0); BLOOD UREA NITROGEN 30.7 mg/dL (7-18)
[2023-02-08 21:34] LABS: CREATININE 1.1 mg/dL (0.55-1.3)
[2023-02-08 21:36] LABS: BILIRUBIN,TOTAL 0.5 mg/dL (0.2-1); TOT PROT 9.4 g/dl (6.4-8.2)
[2023-02-08] MEDS ORDERED: CEFTRIAXONE 1 GM/50 ML BAG ONE (23:36)
[2023-02-09] MEDS ORDERED: chlordiazePOXIDE HCL 25 MG CAPSULE PO ONE (03:27)
[2023-02-09] MEDS ORDERED: chlordiazePOXIDE HCL 25 MG CAPSULE PO PRN (03:27)
[2023-02-09] MEDS ORDERED: SODIUM CHLORIDE 1,000 ML IV SCH (03:30)
[2023-02-09] MEDS ORDERED: DEXTROSE 5%-NORMAL SALINE 1,000 ML IV SCH (03:30)
[2023-02-09] MEDS ORDERED: chlordiazePOXIDE HCL 25 MG CAPSULE ONE (03:50)
[2023-02-09 05:01] VITALS: BMI 27.3
[2023-02-09] MEDS: chlordiazePOXIDE HCL 25 MG CAPSULE PO SCH ×4 (05:27→22:05)
[2023-02-09 08:55] LABS: BASO % 0.7 % (0-2.0); EOS % 0.5 % (0-4.5); HEMATOCRIT 17.8 % (35.4-49); MCH 27.6 pg (25.7-33.7); MCHC 33.1 g/dl (32.0-35.9); MEAN CELL VOLUME 83.3 fl (80-96); MEAN PLT VOLUME 8.9 fl (7.5-11.1); MONO % 11.5 % (3.8-10.2); NEUT % 56.3 % (42.8-82.8); PLATELET COUNT 130 10^3/uL (134-434); RBC 2.13 M/mm3 (4.00-5.60); RDW 19.2 % (11.9-15.9); WHITE BLOOD COUNT 3.8 K/mm3 (4.0-10.0)
[2023-02-09 09:06] LABS: POTASSIUM 3.6 mmol/L (3.5-5.1)
[2023-02-09 09:29] LABS: CALCIUM 7.6 mg/dL (8.5-10.1)
[2023-02-09 09:30] LABS: ALBUMIN 2.4 g/dl (3.4-5.0); BLOOD UREA NITROGEN 17.7 mg/dL (7-18)
[2023-02-09 09:33] LABS: CREATININE 0.8 mg/dL (0.55-1.3)
[2023-02-09 09:36] LABS: BILIRUBIN,TOTAL 0.6 mg/dL (0.2-1); TOT PROT 8.2 g/dl (6.4-8.2)
[2023-02-09 09:44] LABS: HEMOGLOBIN 5.9 GM/dL (11.7-16.9)
[2023-02-09] MEDS ORDERED: PANTOPRAZOLE SODIUM 40 MG VIAL IVPUSH SCH (10:00)
[2023-02-09] MEDS ORDERED: PANTOPRAZOLE SODIUM 80 MG in SODIUM CHLORIDE 100 ML IVPB SCH (11:30)
[2023-02-09] MEDS: ABACAVIR/DOLUTEGRAVIR/LAMIVUDI (TRIUMEQ) TABLET PO SCH (11:30)
[2023-02-09] MEDS ORDERED: PANTOPRAZOLE SODIUM 160 MG in SODIUM CHLORIDE 290 ML IVPB SCH (13:00)
[2023-02-09 18:37] LABS: BASO % 0.4 % (0-2.0); EOS % 0.6 % (0-4.5); HEMATOCRIT 25.6 % (35.4-49); HEMOGLOBIN 8.5 GM/dL (11.7-16.9); LYMPH % 29.4 % (8-40); MCH 27.8 pg (25.7-33.7); MCHC 33.1 g/dl (32.0-35.9); MEAN CELL VOLUME 84.1 fl (80-96); MEAN PLT VOLUME 8.9 fl (7.5-11.1); NEUT % 60.6 % (42.8-82.8); PLATELET COUNT 140 10^3/uL (134-434); RBC 3.04 M/mm3 (4.00-5.60); RDW 17.2 % (11.9-15.9); WHITE BLOOD COUNT 4.4 K/mm3 (4.0-10.0)
[2023-02-09] MEDS: PANTOPRAZOLE 40 MG TABLET PO SCH (22:04)
[2023-02-10] MEDS: chlordiazePOXIDE HCL 25 MG CAPSULE PO SCH ×4 (05:29→22:07)
[2023-02-10 08:24] LABS: INR 1.05 (0.83-1.09); PROTHROMBIN TIME (PATIENT) 12.2 SEC (9.7-13.0)
[2023-02-10 08:27] LABS: BASO % 0.5 % (0-2.0); EOS % 0.7 % (0-4.5); HEMOGLOBIN 8.4 GM/dL (11.7-16.9); MCHC 33.4 g/dl (32.0-35.9); MEAN PLT VOLUME 9.4 fl (7.5-11.1); MONO % 9.8 % (3.8-10.2); PLATELET COUNT 155 10^3/uL (134-434); RBC 2.98 M/mm3 (4.00-5.60); RDW 17.5 % (11.9-15.9); WHITE BLOOD COUNT 3.2 K/mm3 (4.0-10.0)
[2023-02-10 08:38] LABS: POTASSIUM 3.6 mmol/L (3.5-5.1)
[2023-02-10 08:44] LABS: BLOOD UREA NITROGEN 8.3 mg/dL (7-18); CALCIUM 7.8 mg/dL (8.5-10.1)
[2023-02-10 08:45] LABS: ALBUMIN 2.6 g/dl (3.4-5.0)
[2023-02-10 08:47] LABS: CREATININE 0.7 mg/dL (0.55-1.3)
[2023-02-10 08:49] LABS: BILIRUBIN,TOTAL 1.4 mg/dL (0.2-1); TOT PROT 8.8 g/dl (6.4-8.2)
[2023-02-10] MEDS: PANTOPRAZOLE 40 MG TABLET PO SCH ×2 (09:27→22:07)
[2023-02-10] MEDS: ABACAVIR/DOLUTEGRAVIR/LAMIVUDI (TRIUMEQ) TABLET PO SCH (09:27)
[2023-02-10] MEDS ORDERED: LACTULOSE 20 GM/30 ML UDC (FOR ORAL USE ONLY) PO PRN (10:03)
[2023-02-10] MEDS ORDERED: LACTATED RINGERS SOLUTION 1,000 ML/1,000 ML INFUS.BAG IV SCH ×2 (10:15)
[2023-02-10 12:21] LABS: BASO % 0.7 % (0-2.0); EOS % 0.7 % (0-4.5); HEMATOCRIT 27.2 % (35.4-49); HEMOGLOBIN 8.9 GM/dL (11.7-16.9); LYMPH % 38.2 % (8-40); MCH 27.7 pg (25.7-33.7); MCHC 32.8 g/dl (32.0-35.9); MEAN CELL VOLUME 84.6 fl (80-96); MEAN PLT VOLUME 8.6 fl (7.5-11.1); MONO % 8.8 % (3.8-10.2); NEUT % 51.6 % (42.8-82.8); PLATELET COUNT 179 10^3/uL (134-434); RBC 3.22 M/mm3 (4.00-5.60); RDW 17.8 % (11.9-15.9); WHITE BLOOD COUNT 4.2 K/mm3 (4.0-10.0)
[2023-02-11] MEDS ORDERED: chlordiazePOXIDE HCL 10 MG CAPSULE PO PRN
[2023-02-11] MEDS: chlordiazePOXIDE HCL 10 MG CAPSULE PO SCH ×4 (05:33→22:25)
[2023-02-11 08:46] LABS: POTASSIUM 3.5 mmol/L (3.5-5.1)
[2023-02-11 08:48] LABS: CALCIUM 8.2 mg/dL (8.5-10.1)
[2023-02-11 08:49] LABS: ALBUMIN 2.5 g/dl (3.4-5.0)
[2023-02-11 08:52] LABS: BLOOD UREA NITROGEN 5.6 mg/dL (7-18); CREATININE 0.8 mg/dL (0.55-1.3)
[2023-02-11 08:53] LABS: BILIRUBIN,TOTAL 0.8 mg/dL (0.2-1)
[2023-02-11 08:54] LABS: TOT PROT 9.1 g/dl (6.4-8.2)
[2023-02-11 08:56] LABS: HEMATOCRIT 25.1 % (35.4-49); HEMOGLOBIN 8.4 GM/dL (11.7-16.9); MCH 28.1 pg (25.7-33.7); MCHC 33.3 g/dl (32.0-35.9); MEAN CELL VOLUME 84.3 fl (80-96); MEAN PLT VOLUME 8.8 fl (7.5-11.1); PLATELET COUNT 165 10^3/uL (134-434); RBC 2.98 M/mm3 (4.00-5.60); RDW 18.1 % (11.9-15.9); WHITE BLOOD COUNT 3.3 K/mm3 (4.0-10.0)
[2023-02-11] MEDS: PANTOPRAZOLE 40 MG TABLET PO SCH ×2 (09:39→22:25)
[2023-02-11] MEDS: ABACAVIR/DOLUTEGRAVIR/LAMIVUDI (TRIUMEQ) TABLET PO SCH (09:40)
[2023-02-11] MEDS ORDERED: FOLIC ACID 1 MG TABLET (FP) PO SCH (10:00)
[2023-02-11] MEDS ORDERED: THIAMINE HCL 100 MG TABLET (FP) PO SCH (10:00)
[2023-02-11] MEDS ORDERED: MULTIVITAMINS (DAILY MVI) TABLET (FP) PO SCH (10:00)
[2023-02-11 10:22] LABS: ANISOCYTOSIS 1+; MACROCYTOSIS 0
[2023-02-11 17:02] VITALS: RESP 16
[2023-02-12] MEDS ORDERED: chlordiazePOXIDE HCL 10 MG CAPSULE PO SCH ×2 (05:00→17:00)
[2023-02-12 06:58] VITALS: BP 111/74; PULSE 89; TEMP 98
[2023-02-12] MEDS ORDERED: LACTULOSE 20 GM/30 ML UDC (FOR ORAL USE ONLY) PO PRN (08:37)
[2023-02-12] MEDS ORDERED: MULTIVITAMINS (DAILY MVI) TABLET (FP) PO SCH (10:00)
[2023-02-12] MEDS ORDERED: FOLIC ACID 1 MG TABLET (FP) PO SCH (10:00)
[2023-02-12] MEDS ORDERED: ABACAVIR/DOLUTEGRAVIR/LAMIVUDI (TRIUMEQ) TABLET PO SCH (10:00)
[2023-02-12] MEDS ORDERED: THIAMINE HCL 100 MG TABLET (FP) PO SCH (10:00)
[2023-02-12] MEDS ORDERED: PANTOPRAZOLE 40 MG TABLET PO SCH (10:00)
[2023-02-13] MEDS ORDERED: chlordiazePOXIDE HCL 10 MG CAPSULE PO ONE ×2 (05:00)
== END 2023-02-12 14:07 | disposition home or self-care (01) | DRG 241 ==
LOC: JER 17:58 → JERBED 21:50 → J4S 02-09 04:46 → J5S 02-11 16:07
PROVIDERS: ADMIT Internal Medicine; ATTEND Internal Medicine
PROC: 30233N1 Transfusion of Nonautologous Red Blood Cells into Peripheral Vein, Percutaneous Approach (ICD-10-PCS; 2023-02-09)
PROC: 0DB78ZX Excision of Stomach, Pylorus, Via Natural or Artificial Opening Endoscopic, Diagnostic (ICD-10-PCS; principal; 2023-02-09 13:00)
DX: K26.4 Chronic or unspecified duodenal ulcer with hemorrhage (principal); I10 Essential (primary) hypertension; Z21 Asymptomatic human immunodeficiency virus [HIV] infection status; D62 Acute posthemorrhagic anemia; K70.30 Alcoholic cirrhosis of liver without ascites; F10.239 Alcohol dependence with withdrawal, unspecified; K76.0 Fatty (change of) liver, not elsewhere classified; K44.9 Diaphragmatic hernia without obstruction or gangrene
CPT/HCPCS: 36415; 36430; 71045-TC-FY; 76705-TC; 80053; 82140; 82550; 83690; 84484; 85025; 85610; 85730; 86850; 86900; 86901; 86922; 87338; 88305-TC; 93005; 93010; 97116-GP; 97161-GP; 99285-25; P9058

== ENCOUNTER 2024-02-18 09:40 | Inpatient (IN) | payer OTHER ==
[2024-02-18] MEDS ORDERED: morphine SULFATE 4 MG/ML VIAL ONE (10:58)
[2024-02-18] MEDS: morphine CARPU-JECT 4 MG/1 ML DISP.SYRIN IVPUSH ONE (11:18)
[2024-02-18 11:37] LABS: BASO % 0.4 % (0-2.0); EOS % 0.3 % (0-4.5); HEMATOCRIT 32.7 % (35.4-49); HEMOGLOBIN 11.1 GM/dL (11.7-16.9); LYMPH % 26.6 % (8-40); MCH 30.8 pg (25.7-33.7); MEAN CELL VOLUME 90.7 fl (80-96); MEAN PLT VOLUME 7.7 fl (7.5-11.1); MONO % 13.3 % (3.8-10.2); NEUT % 59.4 % (42.8-82.8); PLATELET COUNT 279 10^3/uL (134-434); RBC 3.61 M/mm3 (4.00-5.60); RDW 16.4 % (11.9-15.9); WHITE BLOOD COUNT 6.9 K/mm3 (4.0-10.0)
[2024-02-18 11:53] LABS: POTASSIUM 4.1 mmol/L (3.5-5.1)
[2024-02-18 11:55] LABS: BLOOD UREA NITROGEN 14.6 mg/dL (7-18); CALCIUM 8.8 mg/dL (8.5-10.1)
[2024-02-18 11:56] LABS: ALBUMIN 2.2 g/dl (3.4-5.0)
[2024-02-18 12:00] LABS: BILIRUBIN,TOTAL 1.1 mg/dL (0.2-1)
[2024-02-18 12:12] LABS: TOT PROT 11.9 g/dl (6.4-8.2)
[2024-02-18] MEDS ORDERED: KETOROLAC TROMETHAMINE 30 MG/1 ML VIAL ONE (15:01)
[2024-02-18] MEDS: KETOROLAC TROMETHAMINE 30 MG/1 ML VIAL IVPUSH ONE (15:09)
[2024-02-18] MEDS: SODIUM CHLORIDE 0.9% 1000 ML INFUS.BAG IV ONE (15:09)
[2024-02-18] MEDS: FLUCONAZOLE 400 MG/NS 200 ML IVPB ONE (15:10)
[2024-02-18 17:15] LABS: POTASSIUM 4.5 mmol/L (3.5-5.1)
[2024-02-18 17:16] LABS: CALCIUM 7.7 mg/dL (8.5-10.1)
[2024-02-18 17:17] LABS: BLOOD UREA NITROGEN 12.6 mg/dL (7-18)
[2024-02-18 17:20] LABS: CREATININE 0.9 mg/dL (0.55-1.3)
[2024-02-18] MEDS ORDERED: ACETAMINOPHEN 1000 MG/100 ML BAG IVPB PRN (20:17)
[2024-02-18 23:57] LABS: MAGNESIUM 1.8 mg/dL (1.8-2.4)
[2024-02-19 00:01] LABS: PHOSPHOROUS 4.3 mg/dL (2.5-4.9)
[2024-02-19 00:07] LABS: MAGNESIUM 1.8 mg/dL (1.8-2.4)
[2024-02-19 00:11] LABS: PHOSPHOROUS 4.1 mg/dL (2.5-4.9)
[2024-02-19] MEDS: SODIUM CHLORIDE 1,000 ML IV SCH (02:55)
[2024-02-19] MEDS: ACYCLOVIR INJECTION 350 MG in DEXTROSE 5%-WATER - 100 ML IVPB ONE (07:39)
[2024-02-19] MEDS ORDERED: ACYCLOVIR INJECTION 350 MG in DEXTROSE 5%-WATER - 100 ML IVPB SCH (10:00)
[2024-02-19] MEDS: THIAMINE HCL 200 MG/2 ML VIAL IVPB SCH (10:22)
[2024-02-19] MEDS: FLUCONAZOLE 200 MG/NS 100 ML IVPB SCH (10:22)
[2024-02-19 10:57] LABS: HEMATOCRIT 30.3 % (35.4-49); HEMOGLOBIN 10.4 GM/dL (11.7-16.9); MCH 31.2 pg (25.7-33.7); MCHC 34.2 g/dl (32.0-35.9); MEAN CELL VOLUME 91.2 fl (80-96); MEAN PLT VOLUME 8.7 fl (7.5-11.1); PLATELET COUNT 266 10^3/uL (134-434); RBC 3.32 M/mm3 (4.00-5.60)
[2024-02-19 11:09] LABS: POTASSIUM 3.8 mmol/L (3.5-5.1)
[2024-02-19 11:39] LABS: MAGNESIUM 1.7 mg/dL (1.8-2.4)
[2024-02-19 11:41] LABS: BLOOD UREA NITROGEN 9.1 mg/dL (7-18); CALCIUM 8.5 mg/dL (8.5-10.1)
[2024-02-19 11:42] LABS: CREATININE 0.8 mg/dL (0.55-1.3)
[2024-02-19 11:45] LABS: BILIRUBIN,DIRECT 0.2 mg/dL (0.0-0.2); PHOSPHOROUS 3.5 mg/dL (2.5-4.9)
[2024-02-19 11:47] LABS: BILIRUBIN,TOTAL 0.7 mg/dL (0.2-1)
[2024-02-19] MEDS: FOLIC ACID 5 MG/1 ML SQ SCH (15:19)
[2024-02-19] MEDS: ACYCLOVIR INJECTION 350 MG in DEXTROSE 5%-WATER - 100 ML IVPB SCH (15:19)
[2024-02-19] MEDS: ABACAVIR/DOLUTEGRAVIR/LAMIVUDI (TRIUMEQ) TABLET PO SCH (15:19)
[2024-02-19 17:02] VITALS: BMI 23.1
[2024-02-20] MEDS: PANTOPRAZOLE 40 MG TABLET PO SCH (10:05)
[2024-02-20 10:12] LABS: INR 1.05 (0.83-1.09); PROTHROMBIN TIME (PATIENT) 12.1 SEC (9.7-13.0)
[2024-02-20 10:15] LABS: ACTIVATED PTT 33.9 SECONDS (25.2-36.5)
[2024-02-20 10:20] LABS: HEMATOCRIT 31.6 % (35.4-49); HEMOGLOBIN 10.5 GM/dL (11.7-16.9); MCH 30.5 pg (25.7-33.7); MCHC 33.2 g/dl (32.0-35.9); MEAN CELL VOLUME 91.9 fl (80-96); MEAN PLT VOLUME 8.1 fl (7.5-11.1); PLATELET COUNT 298 10^3/uL (134-434); RBC 3.44 M/mm3 (4.00-5.60); RDW 16.2 % (11.9-15.9); WHITE BLOOD COUNT 4.1 K/mm3 (4.0-10.0)
[2024-02-20 10:23] LABS: POTASSIUM 3.5 mmol/L (3.5-5.1)
[2024-02-20 10:25] LABS: ALBUMIN 1.9 g/dl (3.4-5.0); BLOOD UREA NITROGEN 5.6 mg/dL (7-18); CALCIUM 8.1 mg/dL (8.5-10.1); MAGNESIUM 1.7 mg/dL (1.8-2.4)
[2024-02-20 10:29] LABS: CREATININE 0.8 mg/dL (0.55-1.3); PHOSPHOROUS 3.1 mg/dL (2.5-4.9)
[2024-02-20 10:30] LABS: TOT PROT 10.7 g/dl (6.4-8.2)
[2024-02-20 10:32] LABS: BILIRUBIN,TOTAL 0.5 mg/dL (0.2-1)
[2024-02-20 14:49] VITALS: RESP 18
[2024-02-20] MEDS ORDERED: SODIUM CHLORIDE 1,000 ML IV SCH (18:38)
[2024-02-20] MEDS ORDERED: DOCUSATE SODIUM 100 MG CAPSULE (FP) PO PRN (18:42)
[2024-02-20] MEDS: POLYETHYLENE GLYCOL (HEALTHYLAX) 3350 17 GM PACKET PO ONE (19:37)
[2024-02-20] MEDS: MAGNESIUM 1GM/D5W - 1 GM/100 ML IVPB IVPB ONE (19:37)
[2024-02-20] MEDS: SODIUM CHLORIDE 1,000 ML IV SCH (19:37)
[2024-02-20] MEDS: guaiFENesin 600 MG TABLET.ER (FP) PO SCH (21:23)
[2024-02-21] MEDS: MAGNESIUM OXIDE 400 MG TABLET (FP) PO ONE (18:45)
[2024-02-21] MEDS: valACYclovir HCL 500 MG TABLET (FP) PO SCH (21:05)
[2024-02-21 22:03] LABS: BASO % 0.6 % (0-2.0); EOS % 0.3 % (0-4.5); HEMATOCRIT 29.9 % (35.4-49); HEMOGLOBIN 9.9 GM/dL (11.7-16.9); MCH 30.3 pg (25.7-33.7); MCHC 33.1 g/dl (32.0-35.9); MEAN CELL VOLUME 91.5 fl (80-96); MEAN PLT VOLUME 7.5 fl (7.5-11.1); MONO % 10.8 % (3.8-10.2); NEUT % 50.3 % (42.8-82.8); PLATELET COUNT 275 10^3/uL (134-434); RBC 3.27 M/mm3 (4.00-5.60); WHITE BLOOD COUNT 7.4 K/mm3 (4.0-10.0)
[2024-02-21 22:29] LABS: ANISOCYTOSIS 1+; MACROCYTOSIS 0
[2024-02-21 22:36] LABS: POTASSIUM 3.7 mmol/L (3.5-5.1)
[2024-02-21 22:38] LABS: CALCIUM 7.9 mg/dL (8.5-10.1)
[2024-02-21 22:39] LABS: ALBUMIN 1.8 g/dl (3.4-5.0); BLOOD UREA NITROGEN 10.5 mg/dL (7-18); MAGNESIUM 1.6 mg/dL (1.8-2.4)
[2024-02-21 22:42] LABS: CREATININE 0.9 mg/dL (0.55-1.3)
[2024-02-21 22:44] LABS: BILIRUBIN,TOTAL 0.4 mg/dL (0.2-1); TOT PROT 10.2 g/dl (6.4-8.2)
[2024-02-22] MEDS: FLUCONAZOLE 100 MG TABLET (UD) PO SCH (10:34)
[2024-02-22] MEDS: KETOROLAC TROMETHAMINE 10 MG TABLET PO ONE (15:52)
[2024-02-22] MEDS: MAGNESIUM 1GM/D5W - 1 GM/100 ML IVPB IVPB ONE (15:52)
[2024-02-22] MEDS: AMOX TR/POT CLAV 875MG/125MG TABLETS (FP) PO SCH (16:51)
[2024-02-23] MEDS: valACYclovir HCL 500 MG TABLET (FP) PO SCH (09:11)
[2024-02-23 10:48] LABS: BASO % 0.6 % (0-2.0); EOS % 0.7 % (0-4.5); HEMATOCRIT 29.7 % (35.4-49); LYMPH % 26.3 % (8-40); MCH 30.5 pg (25.7-33.7); MCHC 33.6 g/dl (32.0-35.9); MEAN CELL VOLUME 90.8 fl (80-96); MEAN PLT VOLUME 7.8 fl (7.5-11.1); MONO % 10.5 % (3.8-10.2); NEUT % 61.9 % (42.8-82.8); PLATELET COUNT 285 10^3/uL (134-434); RBC 3.28 M/mm3 (4.00-5.60); RDW 15.8 % (11.9-15.9); WHITE BLOOD COUNT 8.1 K/mm3 (4.0-10.0)
[2024-02-23 11:10] LABS: POTASSIUM 3.7 mmol/L (3.5-5.1)
[2024-02-23 11:14] LABS: ALBUMIN 1.9 g/dl (3.4-5.0)
[2024-02-23 11:15] LABS: BLOOD UREA NITROGEN 11.5 mg/dL (7-18)
[2024-02-23 11:18] LABS: CREATININE 0.8 mg/dL (0.55-1.3)
[2024-02-23 11:20] LABS: BILIRUBIN,TOTAL 0.4 mg/dL (0.2-1); TOT PROT 10.5 g/dl (6.4-8.2)
[2024-02-23] MEDS ORDERED: IBUPROFEN 600 MG TABLET (FP) PO PRN (11:59)
[2024-02-23] MEDS ORDERED: traMADol HCL 50 MG TABLET PO PRN (12:04)
[2024-02-23] MEDS: VANCOMYCIN/WATER FOR INJ (PEG) 1,000 MG/200 ML BAG IVPB ONE (12:32)
[2024-02-23] MEDS: traMADol HCL 50 MG TABLET PO ONE (12:33)
[2024-02-23] MEDS ORDERED: VANCOMYCIN 1,000 MG in DEXTROSE 5%-WATER - 250 ML IVPB SCH (22:00)
[2024-02-23] MEDS: VANCOMYCIN/WATER FOR INJ (PEG) 1,000 MG/200 ML BAG IVPB SCH (22:02)
[2024-02-24 10:19] LABS: BASO % 0.4 % (0-2.0); EOS % 1.2 % (0-4.5); HEMATOCRIT 31.2 % (35.4-49); HEMOGLOBIN 10.5 GM/dL (11.7-16.9); LYMPH % 34.2 % (8-40); MCH 30.8 pg (25.7-33.7); MCHC 33.6 g/dl (32.0-35.9); MEAN CELL VOLUME 91.8 fl (80-96); MEAN PLT VOLUME 8.2 fl (7.5-11.1); MONO % 10.7 % (3.8-10.2); NEUT % 53.5 % (42.8-82.8); PLATELET COUNT 346 10^3/uL (134-434); RDW 15.9 % (11.9-15.9)
[2024-02-24 10:32] LABS: POTASSIUM 3.8 mmol/L (3.5-5.1)
[2024-02-24 10:38] LABS: ALBUMIN 1.9 g/dl (3.4-5.0); BLOOD UREA NITROGEN 11.5 mg/dL (7-18); CALCIUM 8.2 mg/dL (8.5-10.1); MAGNESIUM 1.7 mg/dL (1.8-2.4)
[2024-02-24 10:40] LABS: CREATININE 0.9 mg/dL (0.55-1.3); PHOSPHOROUS 3.6 mg/dL (2.5-4.9)
[2024-02-24 10:42] LABS: BILIRUBIN,TOTAL 0.4 mg/dL (0.2-1)
[2024-02-24 10:43] LABS: TOT PROT 11.1 g/dl (6.4-8.2)
[2024-02-24] MEDS: VANCOMYCIN/WATER FOR INJ (PEG) 1,000 MG/200 ML BAG IVPB SCH (14:12)
[2024-02-26 11:32] LABS: POTASSIUM 4.2 mmol/L (3.5-5.1)
[2024-02-26 11:44] LABS: ALBUMIN 1.9 g/dl (3.4-5.0); BLOOD UREA NITROGEN 13.5 mg/dL (7-18); CALCIUM 8.9 mg/dL (8.5-10.1)
[2024-02-26 11:47] LABS: CREATININE 0.8 mg/dL (0.55-1.3)
[2024-02-26 11:49] LABS: TOT PROT 11.3 g/dl (6.4-8.2)
[2024-02-26 11:51] LABS: BILIRUBIN,TOTAL 0.4 mg/dL (0.2-1)
[2024-02-27 11:14] LABS: CALCIUM 8.8 mg/dL (8.5-10.1)
[2024-02-27 11:15] LABS: BLOOD UREA NITROGEN 14.9 mg/dL (7-18)
[2024-02-27 11:18] LABS: CREATININE 0.9 mg/dL (0.55-1.3)
[2024-02-27 15:23] VITALS: PULSE 86; TEMP 98.7
[2024-02-27 15:26] VITALS: BP 134/82
== END 2024-02-27 15:28 | disposition home or self-care (01) | DRG 242 ==
LOC: JER 09:40 → JERBED 18:00 → J6S 20:56
PROVIDERS: ADMIT Internal Medicine; ATTEND Internal Medicine
DX: B37.81 Candidal esophagitis (principal); Z21 Asymptomatic human immunodeficiency virus [HIV] infection status; I10 Essential (primary) hypertension; K70.30 Alcoholic cirrhosis of liver without ascites; F10.10 Alcohol abuse, uncomplicated; E87.1 Hypo-osmolality and hyponatremia; L03.114 Cellulitis of left upper limb; Z59.00 Homelessness unspecified; E43 Unspecified severe protein-calorie malnutrition; Z68.23 Body mass index [BMI] 23.0-23.9, adult; R13.19 Other dysphagia; K29.50 Unspecified chronic gastritis without bleeding; K76.0 Fatty (change of) liver, not elsewhere classified; K44.9 Diaphragmatic hernia without obstruction or gangrene; D64.9 Anemia, unspecified; E86.0 Dehydration; I80.8 Phlebitis and thrombophlebitis of other sites; E88.09 Other disorders of plasma-protein metabolism, not elsewhere classified; J44.9 Chronic obstructive pulmonary disease, unspecified; J20.9 Acute bronchitis, unspecified; J44.0 Chronic obstructive pulmonary disease with (acute) lower respiratory infection; Z91.148 Patient's other noncompliance with medication regimen for other reason
CPT/HCPCS: 0241U-QW; 36415; 70487-TC; 70491-TC; 71045-TC-FY; 71046-TC-FY; 71250-TC; 76700-TC; 80048; 80053; 82248; 82272; 82550; 82607; 82728; 82746; 83540; 83550; 83735; 83935; 84100; 84155; 84165; 84300; 84439; 84443; 85025; 85027; 85045; 85610; 85730; 86359; 86360; 86704; 86705; 86708; 86709; 86803; 87040; 87338; 87340; 87517; 87529; 87536; 93005; 93010; 93971; 97116-GP; 97161-GP; 99285-25; G0480; Q9967